=== PATIENT | female | born 1990 ===

== ENCOUNTER 2022-10-05 15:56 | Emergency (ER) | payer OTHER, SELFPAY ==
[2022-10-05 16:00] VITALS: BP 155/103; PULSE 99; RESP 20; TEMP 36.7; O2SAT 97; BMI 34.2
[2022-10-05 16:54] LABS: Influenza A PCR POSITIVE (Negative); Influenza B PCR NEGATIVE (Negative); Resp Syncy Virus RNA Qual PCR NEGATIVE (Negative); SARS COV2 PCR INHOUSE POSITIVE (Negative)
--- NOTE | 2022-10-05 17:53 | ED.URI ---
HPI - URI/Sore Throat General Chief Complaint: Upper Respiratory Symptoms Stated Complaint: flu like symptoms Time Seen by Provider: 10/05/22 17:48 Source: patient Mode of arrival: ambulatory Limitations: no limitations History of Present Illness HPI Narrative: 32-year-old female presenting to the ED with complaints of fevers, chills, fatigue, malaise, intermittent headaches, nasal congestion / rhinorrhea, ear pain, cough that has been present for the past 2 weeks worse today. Denies recent travel. Her significant other at bedside has similar symptoms. Otherwise no other sick contacts that they are aware of. She denies any dizziness, neck pain / stiffness, chest pain or shortness of breath, shortness of breath, palpitations, paresthesias, nausea/vomiting / diarrhea constipation, black or bloody stools, lower extremity edema or calf tenderness, rashes or any other symptoms complaints or concerns at this time. MD elicited complaint: fever, cough, rhinorrhea and nasal congestion Onset (ago): week(s) (2) Consistency: constant and progressively worsening Severity: moderate Description of mucous: clear, watery and yellow Able to tolerate fluids by mouth: Yes Exacerbating factors: nothing Relieving factors: nothing Context: sick contacts Associated symptoms: fever, chills, myalgias, diaphoresis, headache, rhinorrhea, nasal congestion, cough and ear pain Treatments prior to arrival: other ( She has been taking [id number] medication no symptomatic relief) Related Data Previous Rx's Medication Instructions Recorded albuterol sulfate 90 mcg/actuation 1 inh inhalation QID PRN shortness 10/05/22 aerosol inhaler of breath or wheezing #8.5 grams amoxicillin 875 mg-potassium 1 tab PO BID 10 days #20 tabs 10/05/22 clavulanate 125 mg tablet codeine 10 mg-guaifenesin 100 mg/5 5 ml PO Q6H PRN cold symptoms #120 10/05/22 mL oral liquid (Guaifenesin AC) mL Allergies Allergy/AdvReac Type Severity Reaction Status Date / Time No Known Allergies Allergy Unverified 07/01/20 16:21 Review of Systems Review of Systems: Constitutional : + subjective fevers/ chills/fatigue/malaise, No Weight loss, No Night Sweats ENT/Mouth : No Hearing loss, + Ear Pain, + Nasal Congestion, No Sinus Pain, No Hoarseness, No sore throat, + Rhinorrhea, No Swallowing Difficulty Eyes: No Eye Pain, No Swelling, No Redness, No Foreign Body, No Discharge, No Vision Changes Cardiovascular : No Chest Pain, No SOB, No Dyspnea on Exertion, No Orthopnea, No Edema, No Palpitations Respiratory : + Cough, No Sputum, No Wheezing, No Smoke Exposure, No Dyspnea Gastrointestinal : No Nausea, No Vomiting, No Diarrhea, No Constipation, No abdominal Pain, No Hematochezia, No Melena Genitourinary : no irregular bleeding, No Dysuria, No Urinary Frequency, No Hematuria, No Urinary Incontinence, No Urgency, No Flank Pain, No Urinary Flow Changes, No Hesitancy Musculoskeletal : No joint pain, + Myalgias, No Joint Swelling Skin : No Skin Lesions, No rash Neuro : No Weakness, No Numbness, No Paresthesias, No Loss of Consciousness, No Dizziness, No Headache Psych : No Anxiety/Panic, No Depression, No SI/HI/AH/VH, No Social Issues, Heme/Lymph: No Bruising, No Bleeding,No Lymphadenopathy Endocrine : No Polyuria, No Polydipsia, No Temperature Intolerance Yes all other systems are reviewed and are negative [facility] Past Medical History Attestation statement: The following information was validated with the patient. Source: old records reviewed, obtained from family and nursing notes reviewed Social History Social History Advance Directives: No Advance Directives Information Provided: Yes Physical Exam Vital Signs: Vital Signs: Last Vital Signs Temp 98.0 F 10/05/22 16:00 Pulse 99 10/05/22 16:00 Resp 20 10/05/22 16:00 BP 155/103 H 10/05/22 16:00 Pulse Ox 97 10/05/22 16:00 O2 Del Method 10/05/22 16:00 BMI result Body Mass Index 34.2 Vital signs reviewed. Blood pressure normal. Pulse normal. Respiration normal. Oxygen normal. Temperature normal. Appearance: Alert. Oriented X3. No acute distress. Head: Normal external exam. Normocephalic. Atraumatic. Eyes: PERRLA. EOMI. Conjunctiva and sclera normal. Eyelids normal. ENT: EAC normal. TM's Normal. Pharynx normal. Uvula midline. Moist mucous membranes. No lesions/ulcerations or masses noted on the tongue. Normal voice. No trismus noted. No drooling noted. No muffled voice noted. Neck: Normal inspection. Neck supple. FROM. No adenopathy. Thyroid Normal. No meningeal signs. CVS: Normal heart rate and rhythm. Heart sound normal. Pulses normal throughout. No murmurs/rales/gallops. Respiratory: No respiratory distress. Painless inspiration. Breath sounds normal. No wheezes/rales/rhonchi noted. Chest nontender. No accessory muscle usage noted or decreased air movement noted. Abdomen: Soft and nontender. Back: Full range of motion noted. Nontender. Skin: Skin warm and dry. Normal skin color. Normal skin turgor. No rashes/lesions/lacerations noted. Extremities: Extremities exhibit normal range of motion and nontender. Neuro: Oriented X 3. No motor deficit. No sensory deficit. Reflexes normal. Normal steady gait. No focal neuro deficits noted. CN's II-XII intact bilaterally? Vascular: + radial pulses. Normal cap refill. No cyanosis noted to upper extremity nails Course Course Course Narrative: patient with URI symptoms for the past 2 weeks reports this started off has like a sinus infection 2 weeks ago and then over the past week she has developed new symptoms I explained to her that most likely she probably had COVID and now she has the flu and she still testing positive for COVID although she tested positive for both of them at this time. Negative for RSV. Lungs are clear to auscultation. Neck is soft nontender supple no meningeal sign noted. She is noted to have a left tympanic otitis media. Right tympanic membrane within normal limits. Not consistent mastoiditis. Posterior pharynx no exudate is noted uvula midline. Patient tolerating secretions well. No imaging indicated. Will DC home with symptomatic treatment antibiotics for her left ear infection instructions return if any new or worsening symptoms to self isolate per CDC guidelines. Patient understands agrees with this plan. Medical Decision Making Lab Data MDM Lab Attestation statement: I reviewed the patient's lab results. Labs: Lab Results 10/05/22 Range/Units 16:09 Influenza Type A (PCR) POSITIVE A (Negative) Influenza Type B (PCR) NEGATIVE (Negative) RSV RNA Qual (PCR) NEGATIVE (Negative) SARS-CoV-2 RNA (RT-PCR) POSITIVE A (Negative) Discharge Plan Discharge Clinical Impression: COVID-19, Influenza A, Acute left otitis media Patient Disposition: Home, Self-Care Instructions: Influenza (ED), Ear Infection (ED), COVID-19 (Coronavirus Disease 2019) (ED) Prescriptions: New amoxicillin-pot clavulanate 875-125 mg tablet 1 tab PO BID 10 Days Qty: 20 0RF codeine-guaifenesin [Guaifenesin AC] 10-100 mg/5 mL liquid 5 ml PO Q6H PRN (Reason: cold symptoms) Qty: 120 0RF albuterol sulfate 90 mcg/actuation HFA aerosol inhaler 1 inh inhalation QID PRN (Reason: shortness of breath or wheezing) Qty: 8.5 0RF Referrals: ED Physician,Generic [Physician] - 5 days (your pcp) Stand Alone Forms: Work/School Release
[2022-10-05] MEDS: guaiFEN/Codeine SF 200/20/10ML 10 ML LIQUID PO (18:06)
== END 2022-10-05 18:12 | disposition home or self-care (01) ==
LOC: HO.ED 18:00
PROVIDERS: Emergency Provider Emergency Medicine
DX: U07.1 COVID-19 (principal); J11.1 Influenza due to unidentified influenza virus with other respiratory manifestations; H66.92 Otitis media, unspecified, left ear
CPT/HCPCS: 0241U; 99282; 99283

== ENCOUNTER 2022-11-09 12:53 | Outpatient (REF) | payer OTHER, SELFPAY ==
--- NOTE | ~2022-11-09 | XR_ITS ---
EXAMINATION: XR CHEST CLINICAL INFORMATION: Chest pain. Heart palpitations. COMPARISON: None TECHNIQUE: 2 views of the chest were obtained. FINDINGS: Bilateral nipple piercing. The lungs are well expanded. There is no focal consolidation, edema, or effusion. No pneumothorax. The cardiomediastinal silhouette is within normal limits. No acute osseous abnormality. XR/XR chest 2V IMPRESSION: Clear lungs.
== END 2022-11-09 12:54 | disposition home or self-care (01) ==
LOC: HO.XRAY 12:53
PROVIDERS: PCP Family Medicine; Visit Provider Family Medicine
DX: R07.9 Chest pain, unspecified (principal)
CPT/HCPCS: 71046

== ENCOUNTER → 2022-11-29 12:50 | Outpatient (REF) | payer OTHER, SELFPAY ==
--- NOTE | 2022-11-29 12:53 | HM_ITS ---
Conclusion: 1. Patient was monitored for total period of 2 days 2. Baseline was normal sinus rhythm with average heart rate of 78 beats per minute 3. No significant pauses or bradycardia noted 4. Rare PVCs noted with total burden of 0.01% 5. Patient reported to events of chest pain that correlated with sinus rhythm MTDD
== END ==
LOC: HO.CARD 12:50
PROVIDERS: PCP Family Medicine; Visit Provider Family Medicine
DX: R00.2 Palpitations (principal)
CPT/HCPCS: 93242

== ENCOUNTER → 2022-12-12 13:42 | Outpatient (BNVA) | payer OTHER, SELFPAY | PROVIDERS: PCP Family Medicine; Visit Provider Internal Medicine | DX: I49.3 Ventricular premature depolarization (principal); R07.9 Chest pain, unspecified; R00.2 Palpitations | CPT/HCPCS: 99202 ==

== ENCOUNTER 2023-01-25 19:21 | Emergency (ER) | payer OTHER, SELFPAY ==
[2023-01-25 19:52] VITALS: BP 118/78; PULSE 98; RESP 18; TEMP 37; O2SAT 96; BMI 35.0
--- NOTE | 2023-01-25 19:53 | ED.URI ---
HPI - URI/Sore Throat General Chief Complaint: General Medical <Thalia Isabel NP - Last Filed: 01/31/23 11:08> Stated Complaint: Strep throat? <Thalia Isabel NP - Last Filed: 01/31/23 11:08> Time Seen by Provider: 01/25/23 20:10 <Thalia Isabel NP - Last Filed: 01/31/23 11:08> Source: patient <Carlos Gu MD - Last Filed: 01/25/23 20:18> Mode of arrival: ambulatory <Carlos Gu MD - Last Filed: 01/25/23 20:18> Limitations: no limitations <Carlos Gu MD - Last Filed: 01/25/23 20:18> History of Present Illness MD elicited complaint: sore throat <Carlos Gu MD - Last Filed: 01/25/23 20:18> Onset (ago): day(s) (3) <Carlos Gu MD - Last Filed: 01/25/23 20:18> Consistency: constant <Carlos Gu MD - Last Filed: 01/25/23 20:18> Severity: moderate <Carlos Gu MD - Last Filed: 01/25/23 20:18> Able to tolerate fluids by mouth: Yes <Carlos Gu MD - Last Filed: 01/25/23 20:18> Exacerbating factors: swallowing <Carlos Gu MD - Last Filed: 01/25/23 20:18> Relieving factors: nothing <Carlos Gu MD - Last Filed: 01/25/23 20:18> Context: sick contacts <Carlos Gu MD - Last Filed: 01/25/23 20:18> Associated symptoms: sore throat and ear pain <Carlos Gu MD - Last Filed: 01/25/23 20:18> Treatments prior to arrival: none <Carlos Gu MD - Last Filed: 01/25/23 20:18> Related Data Home Medications: Previous Rx's Medication Instructions Recorded albuterol sulfate 90 mcg/actuation 1 inh inhalation QID PRN shortness 10/05/22 aerosol inhaler of breath or wheezing #8.5 grams citalopram 20 mg tablet 20 mg PO DAILY 30 days #30 tabs 01/18/23 amoxicillin 875 mg tablet 875 mg PO Q12H #20 tabs 01/25/23 lisdexamfetamine 10 mg capsule 10 mg PO QAM 30 days #30 caps 01/29/23 (Vyvanse) <Thalia Isabel NP - Last Filed: 01/31/23 11:08> Allergies/Adverse Reactions: Allergies Allergy/AdvReac Type Severity Reaction Status Date / Time No Known Allergies Allergy Verified 01/25/23 19:52 <Thalia Isabel NP - Last Filed: 01/31/23 11:08> [facility] Past Medical History Surgical History: Surgical History History of ear surgery <Thalia Isabel NP - Last Filed: 01/31/23 11:08> Family History Family History: Family History Mother No problems noted. Father Heart disease <Thalia Isabel NP - Last Filed: 01/31/23 11:08> Social History Social History: Social History Housing: House Alcohol intake: never Patient Tobacco Use Status: Former Tobacco user Quit Date: 2020 Smoked: 15 +/- e-Cigarette/Vaping Use: Never Used Substance Use Type: Marijuana Advance Directives: No Advance Directives Information Provided: No service: No Current occupational status: employed Current occupational exposures/hazards: No Cognitive needs: No Hearing needs: No Vision needs: Yes (wears glasses) <Thalia Isabel NP - Last Filed: 01/31/23 11:08> Physical Exam Vital Signs: Vital Signs: Last Vital Signs Temp 98.6 F 01/25/23 19:52 Pulse 98 01/25/23 19:52 Resp 18 01/25/23 19:52 BP 118/78 01/25/23 19:52 Pulse Ox 96 01/25/23 19:52 O2 Del Method Room Air 01/25/23 19:52 BMI result Body Mass Index 35.0 <Thalia Isabel NP - Last Filed: 01/31/23 11:08> Vital Signs: Last Vital Signs Temp 98.6 F 01/25/23 19:52 Pulse 98 01/25/23 19:52 Resp 18 01/25/23 19:52 BP 118/78 01/25/23 19:52 Pulse Ox 96 01/25/23 19:52 O2 Del Method Room Air 01/25/23 19:52 BMI result Body Mass Index 35.0 <Carlos Gu MD - Last Filed: 01/25/23 20:18> GEN: Well developed, no acute distress, alert, oriented HEENT: Normocephalic, atraumatic, normal external ears, nose appears normal, bilateral tonsilar enlargement and eyrthema, TM clear Eyes: Normal to appearance Neck: Supple, no lymphadenopathy Respiratory: Talks in complete sentences, no respiratory distress Extremities: No clubbing cyanosis or edema Neurologic: No focal neurologic deficits, cranial nerves 2-12 intact, gait normal Skin: No rash <Carlos Gu MD - Last Filed: 01/25/23 20:18> Course Course Course Narrative: This is a rapid medical exam. Deferred additional HPI, ROS, PE to primary provider. 32 yo female asthma, ADHD, anxiety/depression here with sore throat x1 day, left ear pain. Son had strep last week. Patient would like to be tested for strep. She declined COVID testing. Will send rapid strep <Thalia Isabel NP - Last Filed: 01/31/23 11:08> Reevaluation(s) Reevaluation #1: Patient will be treated for acute strep pharyngitis. Given close sick contacts with strep pharyngitis, I believe it is appropriate to go ahead and treat at this time. There are no additional symptoms and based on cancer criteria I think it is appropriate to start amoxicillin. <Carlos Gu MD - Last Filed: 01/25/23 20:18> Time: 20:17 <Carlos Gu MD - Last Filed: 01/25/23 20:18> Medical Decision Making Medical Decision Making MDM Narrative: 32-year-old female presents with sore throat. Examination revealed bilateral tonsillar enlargement with erythema, no exudates. Tympanic membranes are clear although she did describe a left ear pain which I suspect is due to eustachian tube dysfunction. There is no evidence of peritonsillar abscess or retropharyngeal abscess. Will treat with amoxicillin given close sick contacts. <Carlos Gu MD - Last Filed: 01/25/23 20:18> Differential Diagnosis Differential Diagnoses: The differential diagnosis associated with the presentation includes (Acute pharyngitis, strep throat, viral pharyngitis, viral illness) <Carlos Gu MD - Last Filed: 01/25/23 20:18> Lab Data Labs: Lab Results 01/25/23 Range/Units 20:02 S. pyogenes GrpA ALYCIA Negative (Negative) <Thalia Isabel NP - Last Filed: 01/31/23 11:08> Lab Results 01/25/23 Range/Units 20:02 S. pyogenes GrpA ALYCIA Negative (Negative) <Carlos Gu MD - Last Filed: 01/25/23 20:18> Prescription Management I considered prescription management with: Pain Medication and Antibiotic <Carlos Gu MD - Last Filed: 01/25/23 20:18> Discharge Plan Discharge Clinical Impression: Acute pharyngitis <Thalia Isabel NP - Last Filed: 01/31/23 11:08> Patient Disposition: Home, Self-Care <Thalia Isabel NP - Last Filed: 01/31/23 11:08> Instructions: Pharyngitis (ED) <Thalia Isabel NP - Last Filed: 01/31/23 11:08> Prescriptions: New amoxicillin 875 mg tablet 875 mg PO Q12H Qty: 20 0RF No Action Vyvanse 10 mg capsule 10 mg PO QAM 30 Days Qty: 30 0RF Rx Instructions: [facility] verified. Partial refill upon request. albuterol sulfate 90 mcg/actuation HFA aerosol inhaler 1 inh inhalation QID PRN (Reason: shortness of breath or wheezing) Qty: 8.5 0RF citalopram 20 mg tablet 20 mg PO DAILY 30 Days Qty: 30 3RF <Thalia Isabel NP - Last Filed: 01/31/23 11:08> Referrals: Cyril Farooq MD [Primary Care Provider] - 1 week <Thalia Isabel NP - Last Filed: 01/31/23 11:08> Interventions: ED Discharge Assessment Last Done: 01/25/23 20:26 <Thalia Isabel NP - Last Filed: 01/31/23 11:08> Discharge Date/Time: 01/25/23 20:27 <Thalia Isabel NP - Last Filed: 01/31/23 11:08>
[2023-01-25 20:14] LABS: IDNOW Serial# 08D9AD1C; Strep A Nucleic Acid Negative (Negative)
== END 2023-01-25 20:27 | disposition home or self-care (01) ==
LOC: HO.ED 20:22
PROVIDERS: Nurse Practitioner Family; Emergency Provider Emergency Medicine; PCP Family Medicine
DX: J02.9 Acute pharyngitis, unspecified (principal); Z87.891 Personal history of nicotine dependence
CPT/HCPCS: 87651; 99282; 99283

== ENCOUNTER 2023-03-30 06:07 | Outpatient (REF) | payer OTHER, SELFPAY ==
[2023-03-30 11:17] LABS: MANUAL DIFF FLAG NO
[2023-03-30 11:28] LABS: Basophils Absolute Auto 0.1 X10*3/uL (0.0-0.2); Basophils Percent Auto 0.8 % (0-2); Eosinophils Absolute Auto 0.1 X10*3/uL (0.0-0.4); Eosinophils Percent Auto 1.4 % (0-4); Hemoglobin 14.6 g/dl (12.0-16.0); Imm Gran Abs Auto 0.02 X10*3/uL (0.00-0.03); Imm Gran Pct Auto 0.3 % (0.0-0.4); Lymphocytes Absolute Auto 1.7 X10*3/uL (1.2-4.9); Lymphocytes Percent Auto 26.3 % (20-40); Mean Corpuscular Hemoglobin 29.7 pg (27.0-33.0); Mean Corpuscular Volume 87.4 fL (80.0-98.0); Monocytes Absolute Auto 0.4 X10*3/uL (0.1-1.2); Monocytes Percent Auto 6.6 % (2-11); Neutrophils Absolute Auto 4.1 x10*3/uL (2.0-8.3); Neutrophils Percent Auto 64.6 % (45-73); Platelet Count 309 X10*3/uL (160-400); Red Blood Count 4.92 X10*6/uL (4.20-5.50); Red Cell Distribution Width 12.3 % (11.0-16.0); White Blood Count 6.4 X10*3/uL (4.8-10.8)
[2023-03-30 12:08] LABS: Alanine Aminotransferase 48 U/L (0-31); Albumin Level 4.3 g/dL (3.5-5.0); Alkaline Phosphatase 83 U/L (39-117); Anion Gap 16 (12-20); Aspartate Amino Transferase 25 U/L (5-31); Bilirubin Total 0.9 mg/dL (0.0-1.0); Blood Urea Nitrogen 8 mg/dL (9-16); Calcium 9.9 mg/dL (8.4-10.2); Carbon Dioxide 25 mmol/L (22-29); Chloride 102 mmol/L (96-108); Cholesterol 158 mg/dL; Estimated Glomerular Filt Rate > 60; Glucose Fasting 69 mg/dL (60-99); HDL Cholesterol 41 mg/dL; LDL Cholesterol Calculated 104 mg/dl; Potassium 3.5 mmol/L (3.3-5.1); Sodium 139 mmol/L (135-145); TSH reflex Free T4 1.43 uIU/mL (0.32-4.0); Total Protein 7.5 g/dL (6.5-8.0); Triglycerides 68 mg/dL
== END 2023-03-30 06:08 | disposition home or self-care (01) ==
LOC: HO.HMGCLDS 06:07
PROVIDERS: PCP Family Medicine; Visit Provider Family Medicine
DX: Z00.00 Encounter for general adult medical examination without abnormal findings (principal)
CPT/HCPCS: 36415; 80053; 80061; 84443; 85025

== ENCOUNTER 2023-07-11 15:58 | Outpatient (AMB) | payer OTHER, SELFPAY ==
--- NOTE | 2023-07-11 16:02 | A.OFFPC_ITS ---
Vital Signs 07/11/23 16:06 Height 5 ft 6 in Weight 212 lb 6 oz BMI 34.3 BP 124/60 Blood Pressure Location Rt brachial Position Sitting Respiration 13 Pulse 86 Pulse Source Pulse Oximeter Temp 98.9 F Temp Source Oral Pulse Oximetry (%) 99 Oxygen Delivery Method Room Air Intake Visit Reasons: CPE Intake Note: Patient is here for her physical and she reports she needs medication refills. Special Education Aide Required: No Accompanied by: Self / Same As Patient Allergies No Known Allergies Allergy (Verified 07/11/23 16:10) Tobacco use date assessed: 11/09/22 HPI CPE HPI Details 32 y/o female presents for an extended e xam with f/u labs and health ma intenance. No recent labs to review. Also f/u anxiety and ADHD. Most recent labs were drawn 03/30/23. Reviewed labs with pt. Triglycerides 68. TC 158. LDL 104. HDL 41. Elevated ALT of 48. HPI Comments History of Present Illness Details Documentation assistance for Cyril Farooq MD, was provided by Newton Frazier, Interpretative Dancer on 07/11/2023 4:18 PM CARLA. I, Dr. Farooq, have read, observed, and verified documentation. PFSH Surgical History History of ear surgery Family History Mother No problems noted. Father Heart disease Social History Housing: House Alcohol intake: never Patient Tobacco Use Status: Former Tobacco user Quit Date: 2020 Years Smoked: 15 +/- e-Cigarette/Vaping Use: Never Used Substance Use Type: Marijuana service: No Current occupational status: employed Current occupational exposures/hazards: No Cognitive needs: No Hearing needs: No Vision needs: Yes (wears glasses) Questionnaire Thrive Questionnaire Date Thrive assessed: 11/09/22 Review of Systems Const Denies chills, Denies fatigue, Denies fever(s), Denies headache(s) and Denies weakness Eyes Denies change in vision ENT Denies dizziness, Denies headache(s), Denies hearing loss, Denies nasal congestion, Denies sinus pain, Denies sinus pressure and Denies sore throat Card Denies chest pain, Denies lightheadedness, Denies dyspnea and Denies other (palpitations) Resp Denies cough, Denies dyspnea and Denies wheezing GI Denies abdominal pain, Denies melena, Denies hematochezia, Denies change in bowel habits, Denies dyspepsia and Denies nausea Denies hematuria and Denies dysuria Musc Denies abnormal gait, Denies myalgias, Denies arthralgias, Denies numbness and Denies tingling Skin/Breast Denies rash, Denies unusual bruising and Denies wounds Neuro Denies abnormal gait, Denies dizziness, Denies headache(s), Denies memory loss, Denies numbness, Denies Sensory deficit (Neuro), Denies tingling and Denies weakness Psych Denies anxiety, Denies depression and Denies memory loss Endo Denies cold intolerance, Denies fatigue, Denies heat intolerance, Denies polydi psia and Denies polyuria Armando/Lymph Denies easy bleeding and Denies easy bruising Aller/Immun Denies wheezing Physical exam (Primary Care) Vital Signs: Last Vital Signs Temp 98.9 F 07/11/23 16:06 Pulse 86 07/11/23 16:06 Resp 13 07/11/23 16:06 BP 124/60 07/11/23 16:06 Pulse Ox 99 07/11/23 16:06 Oxygen Delivery Method Room Air 07/11/23 16:06 BMI result Body Mass Index 34.3 Tobacco/Smoking Status: Tobacco use Status Tobacco use date assessed 11/09/22 07/11/23 16:03 Patient Tobacco Use Status Former Tobacco user 07/11/23 16:03 e-Cigarette/Vaping Use Never Used 07/11/23 16:03 Thrive Assessment: Date of Thrive Assessment Date Thrive assessed 11/09/22 07/11/23 16:03 Const General: no acute distress, well developed, alert and awake Nutritional Appearance: well nourished Orientation/consciousness: patient oriented x3 HENMT Head: Yes normocephalic and Yes atraumatic Ears: hearing grossly normal bilaterally and TM's normal bilaterally General nose exam: Normal external nose present and Normal nares present Mouth: Normal oral and palatal mucosa present and moist mucous membranes Teeth and gingiva: dentition normal Throat: Yes posterior oropharynx normal Eyes General: appearance normal, both eyes and all related structures Pupils: Equal, round and reactive pupils present and Pupil accommodation reflex normal EOM: EOMs intact bilaterally Neck Neck: Yes normal visual inspection, Yes no lymphadenopathy and Yes trachea midline Thyroid: Thyroid normal Carotids: no bruits Lymphatic: no lymphadenopathy noted Chest Chest palpation & inspection: normal inspection of the chest Resp Effort & Inspection: normal respiratory effort Auscultation: clear to auscultation bilaterally Cardio Rate: regular rate Rhythm: regular rhythm Heart sounds: S1 normal heart sound present, S2 normal heart sound present, no gallops, no murmurs and no rubs Bruits: no abdominal aortic bruits and no carotid bruits GI Palpation (GI): No Abdominal aortic bruit present, Soft to palpation, nontender, No hepatosplenomegaly present and No Rebound tenderness present Auscultation: normal bowel sounds General: Yes no CVA tenderness Back/Spine/Pelvis Back: no CVA tenderness Cervical Spine: cervical ROM normal and No Cervical spine tenderness Thoracic/Lumbar Spine: thoraco-lumbar ROM normal, No pain with thoraco-lumbar ROM, No thoracic spinal tenderness and No lumbar spinal tenderness Skin Lesions: no lesions Rashes: no rashes Trauma: no lacerations or abrasions Wounds: no wounds Nails: normal Neuro General: patient oriented x3 Cranial nerves: Yes Equal, round and reactive pupils present Cognition (Neuro): normal cognition Gait exam (Neuro): Normal gait present Motor exam (neuro): 5/5 motor strength present throughout Sensory Exam: No Sensory deficit (Neuro) Deep tendon reflexes (DTR's): Right patellar reflex intensity grade: 2+ and Left patellar reflex intensity grade: 2+ Extrem General: Yes normal to inspection and No edema Psych Appearance: grossly normal Affect: normal affect Attitude: cooperative Thought process: Normal thought process present Assessment and Plan Assessment & Plan (1) Elevated ALT measurement: Code(s): R74.01 - Elevation of levels of liver transaminase levels Plan: Repeat?labs Will?follow-up?with?patient?by?telemedicine?in?a?couple?of?weeks (2) ADHD: Code(s): F90.9 - Attention-deficit hyperactivity disorder, unspecified type Plan: Medication?is?efficacious?and?not?causing?any?adverse?effects?such?as?sleep?prob lems,?worsened?anxiety?or?appetite?problems. Continue?current?medication (3) Depression with anxiety: Code(s): F41.8 - Other specified anxiety disorders Plan: Still?has?anxiety.??Has?been?using?b upropion,?citalopram?and?have?given?her?a?small?script?for?lorazepam Continue?current?medications We?discussed?that?if?she?is?needing?more?frequent?medication?for?anxiety,?we?nessa uld?consider?increasi ng?citalopram?or?bupropion?before?trying?additional?lorazepam. (4) Screening for cervical cancer: Code(s): Z12.4 - Encounter for screening for malignant neoplasm of cervix Plan: Will?follow-up?on?health?maintenance?at?her?next?encounter (5) Adult general medical exam: Code(s): Z00.00 - Encounter for general adult medical examination without abnormal findings Plan: 32-year-old?female?presents?for?an?extended?exam Encouraged?healthy?diet?with?active?lifestyle?and?plenty?of?exercise Orders: Orders Lipid Panel Today Z00.00 - Encounter for general adult medical examination without abnormal findings Complete Blood Count Auto Diff Today Z00.00 - Encounter for general adult medical examination without abnormal findings Comprehensive [place]. Panel Fast Today Z00.00 - Encounter for general adult medical examination without abnormal findings TSH reflex Free T4 Today Z00.00 - Encounter for general adult medical examination without abnormal findings UA and rflx microscopic Today Z00.00 - Encounter for general adult medical examination without abnormal findings Microalbumin, Random (w Creat) Today I10 - Essential (primary) hypertension Medications: Refilled lisdexamfetamine [facility] verified. Partial refill upon request. 20 mg PO QAM 30 caps 0RF 30 days F90.9 - Attention-deficit hyperactivity disorder, unspecified type lorazepam [facility] verified. Partial refill upon request. 0.5 mg PO DAILY PRN 10 tabs 0RF anxiety 30 days F41.9 - Anxiety disorder, unspecified Coding Level of Care Code Est Pt Level 4 (82143) Diagnoses Elevated ALT measurement R74.01 ADHD F90.9 Depression with anxiety F41.8 Screening for cervical cancer Z12.4 Adult general medical exam Z00.00
[2023-07-11 16:06] VITALS: BP 124/60; PULSE 86; RESP 13; TEMP 37.2; O2SAT 99; BMI 34.3
== END 2023-07-11 16:36 | disposition home or self-care (01) ==
PROVIDERS: PCP Family Medicine; Visit Provider Family Medicine
DX: R74.01 Elevation of levels of liver transaminase levels (principal); F90.9 Attention-deficit hyperactivity disorder, unspecified type; F41.8 Other specified anxiety disorders; Z12.4 Encounter for screening for malignant neoplasm of cervix; Z00.00 Encounter for general adult medical examination without abnormal findings
CPT/HCPCS: 99214

== ENCOUNTER 2023-07-18 06:14 | Outpatient (REF) | payer OTHER, SELFPAY ==
[2023-07-18 11:21] LABS: MANUAL DIFF FLAG NO
[2023-07-18 11:25] LABS: Appearance Urine Cloudy; Color Urine Yellow; Glucose Urine UA Negative (Negative); Leukocyte Esterase Urine Moderate (2+) (Negative); Nitrite Urine Negative (Negative); PH 5.5 (5.0-9.0); UMIC TRIGGER UA YES; Urine Blood Negative (Negative); Urine Ketones Negative (Negative); Urine Protein Negative (Neg-Trace)
[2023-07-18 11:30] LABS: Bacteria Urine 2+ (None Seen); Hyaline Casts Urine 0-2 /LPF (0-2); RBC Urine 0-2 /HPF (0-2); WBC Urine 21-50 /HPF (0-5)
[2023-07-18 11:35] LABS: Basophils Absolute Auto 0.1 X10*3/uL (0.0-0.2); Basophils Percent Auto 0.9 % (0-2); Eosinophils Absolute Auto 0.1 X10*3/uL (0.0-0.4); Eosinophils Percent Auto 1.7 % (0-4); Hematocrit 42.5 % (37.0-47.0); Hemoglobin 13.8 g/dl (12.0-16.0); Imm Gran Abs Auto 0.01 X10*3/uL (0.00-0.03); Imm Gran Pct Auto 0.2 % (0.0-0.4); Lymphocytes Absolute Auto 2.2 X10*3/uL (1.2-4.9); Lymphocytes Percent Auto 33.8 % (20-40); Mean Corpuscular HGB Conc 32.5 g/dl (31.0-35.0); Mean Corpuscular Hemoglobin 29.8 pg (27.0-33.0); Mean Corpuscular Volume 91.8 fL (80.0-98.0); Mean Platelet Volume 9.1 fL (9.4-12.3); Monocytes Absolute Auto 0.5 X10*3/uL (0.1-1.2); Monocytes Percent Auto 7.3 % (2-11); Neutrophils Absolute Auto 3.6 x10*3/uL (2.0-8.3); Neutrophils Percent Auto 56.1 % (45-73); Platelet Count 317 X10*3/uL (160-400); Red Blood Count 4.63 X10*6/uL (4.20-5.50); Red Cell Distribution Width 12.3 % (11.0-16.0); White Blood Count 6.4 X10*3/uL (4.8-10.8)
[2023-07-18 12:08] LABS: Alanine Aminotransferase 53 U/L (0-31); Alkaline Phosphatase 88 U/L (39-117); Anion Gap 11 (12-20); Aspartate Amino Transferase 48 U/L (5-31); Bilirubin Total 0.4 mg/dL (0.0-1.0); Blood Urea Nitrogen 10 mg/dL (9-16); Calcium 8.8 mg/dL (8.4-10.2); Carbon Dioxide 27 mmol/L (22-29); Chloride 104 mmol/L (96-108); Cholesterol 153 mg/dL (<200); Estimated Glomerular Filt Rate > 60; Glucose Fasting 89 mg/dL (60-99); HDL Cholesterol 57 mg/dL (>40); LDL Cholesterol Calculated 85 mg/dL (<100); Potassium 4.5 mmol/L (3.3-5.1); Sodium 137 mmol/L (135-145); Total Protein 6.8 g/dL (6.5-8.0); Triglycerides 55 mg/dL (<150)
[2023-07-18 12:11] LABS: TSH reflex Free T4 1.22 uIU/mL (0.32-4.0)
[2023-07-18 12:22] LABS: Creatinine Urine 157.44 mg/dL; Microalbum/Creatinine Ratio Ur 7.6 ug/mg cr (<30)
== END 2023-07-18 06:15 | disposition home or self-care (01) ==
LOC: HO.CHCLDS 06:14
PROVIDERS: Visit Provider Family Medicine
DX: Z00.00 Encounter for general adult medical examination without abnormal findings (principal); I10 Essential (primary) hypertension
CPT/HCPCS: 36415; 80053; 80061; 81001; 82043; 82570; 84443; 85025

== ENCOUNTER 2023-09-04 14:23 | Outpatient (AMB) | payer OTHER, SELFPAY ==
--- NOTE | 2023-09-04 14:20 | MHC.PC.OV ---
Intake Visit Reasons: f/u CPE-labs Intake Note: Patient states she is ready for her telehealth call and the provider is able to call if he has time prior to her appointment time. 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 Labs were drawn 07/18/23. Reviewed labs with pt. Elevated liver enzymes - AST 48 and ALT 53. Triglycerides 55. TC 153. LDL 85. HDL 57. Bacteria seen in urine. [facility] Surgical History History of ear surgery Family History Mother No problems noted. Father Heart disease Housing: House Alcohol intake: never Patient Tobacco Use Status: Former Tobacco user Quit Date: 2020 Years Smoked: 15 +/- e-Cigarette/Vaping Use: Never Used Substance Use Type: Marijuana service: No Current occupational status: employed Current occupational exposures/hazards: No Cognitive needs: No Hearing needs: No Vision needs: Yes (wears glasses) Questionnaire Thrive Questionnaire Date Thrive assessed: 11/09/22 Review of Systems Const Denies chills, Denies fatigue, Denies fever(s), Denies headache(s) and Denies weakness ENT Denies dizziness and Denies headache(s) Card Denies dyspnea Resp Denies cough, Denies dyspnea, Denies wheezing and Denies other (shortness of breath) Musc Denies numbness and Denies tingling Neuro Denies dizziness, Denies headache(s), Denies numbness, Denies tingling and Denies weakness Psych Denies anxiety and Denies depression Endo Denies fatigue Aller/Immun Denies wheezing Physical exam (Primary Care) Tobacco/Smoking Status: Tobacco use Status Tobacco use date assessed 11/09/22 09/04/23 14:22 Patient Tobacco Use Status Former Tobacco user 09/04/23 14:22 e-Cigarette/Vaping Use Never Used 09/04/23 14:22 Thrive Assessment: Date of Thrive Assessment Date Thrive assessed 11/09/22 09/04/23 14:22 Telehealth Telehealth Location of provider rendering services: practice address Location of patient: address on file Patient Identification confirmed using: Name, : Yes Telehealth method: voice only Patient verbally consented to treatment: Yes Patient verbally consented to billing insurance company: Yes Patient informed of any privacy concerns related to visit: Yes Minutes spent on Phone/Video with Pt.: 7 Assessment and Plan Assessment & Plan (1) Elevated liver enzymes: Code(s): R74.8 - Abnormal levels of other serum enzymes Plan: Check?liver?ultrasound Encouraged?weight?loss (2) UTI (urinary tract infection): Code(s): N39.0 - Urinary tract infection, site not specified Plan: Urinalysis?suggestive?of?UTI?and?patient?has?symptoms?of?dysuria?and?frequency Sent?a?script?for?Bactrim?DS Orders: Orders US abdomen lomas w elastography Today R74.8 - Abnormal levels of other serum enzymes Medications: New sulfamethoxazole-trimethoprim 800-160 mg (Bactrim DS) 1 tab PO Q12H 10 tabs 0RF 5 days Coding Level of Care Code Tele Est Pt Level 2 (63166) Diagnoses Elevated liver enzymes R74.8 UTI (urinary tract infection) N39.0
== END 2023-09-04 15:00 ==
PROVIDERS: PCP Family Medicine; Visit Provider Family Medicine
DX: R74.8 Abnormal levels of other serum enzymes (principal); N39.0 Urinary tract infection, site not specified
CPT/HCPCS: 99212

== ENCOUNTER 2023-10-11 09:51 | Outpatient (REF) | payer OTHER, SELFPAY | END 2023-10-11 09:52 | disposition home or self-care (01) | LOC: HO.US 09:51 | PROVIDERS: PCP Family Medicine; Visit Provider Family Medicine | DX: R74.8 Abnormal levels of other serum enzymes (principal) | CPT/HCPCS: 76705; 76981 ==

== ENCOUNTER 2023-10-23 08:22 | Outpatient (AMB) | payer OTHER, SELFPAY ==
--- NOTE | 2023-10-23 08:27 | MHC.PC.OV ---
Vital Signs 10/23/23 08:32 Height 5 ft 6 in Weight 219 lb BMI 35.3 BP 112/58 L Blood Pressure Location Rt brachial Position Sitting Respiration 13 Pulse 78 Pulse Source Pulse Oximeter Pulse Oximetry (%) 98 Oxygen Delivery Method Room Air Intake Visit Reasons: f/u elevated liver enzymes and ADHD Intake Note: Patient is here to follow up on her liver enzymes and ultrasound as well as an ADHD check. Patient reports she has no concerns at this time. 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 Liver ultrasound 10/11/23 showed a 1.4cm hypoechoic R hepatic lobe mass, characteristic for a benign hemangioma. Measurements suggestive of compensated advanced chronic liver disease but need further test for confirmation. Also showed cholelithiasis and gallbladder wall thickening suggestive of chronic cholecystitis. She denies EtOH use or tylenol use. She continues to use lixdexamfetamine for her ADHD. She denies any problems with this. She is also on bupropion 75mg b.i.d. and citaopram 20mg. She denies decreased appetite. She does note she feels like her anxiety medications have not been working as well for her due to increased stressors. She reports panic attacks 2-3x a week and does note she works a high stress job along with family stress. She does not have a therapist. Pt notes she does not feel like she has time for one. HPI Comments History of Present Illness Details Documentation assistance for Cyril Farooq MD, was provided by Newton Frazier,? Assistant Research Scientist on 10/23/2023 9:05 AM CARLA. Ag, Dr. Farooq, have read, observed, and verified documentation.? [facility] Surgical History History of ear surgery Family History Mother No problems noted. Father Heart disease Social History Housing: House Alcohol intake: never Patient Tobacco Use Status: Former Tobacco user Quit Date: 2020 Smoked: 15 +/- e-Cigarette/Vaping Use: Never Used Substance Use Type: Marijuana service: No Current occupational status: employed Current occupational exposures/hazards: No Cognitive needs: No Hearing needs: No Vision needs: Yes (wears glasses) Questionnaire Thrive Questionnaire Date Thrive assessed: 11/09/22 Review of Systems Const Denies chills, Denies fatigue, Denies fever(s), Denies headache(s) and Denies weakness ENT Denies dizziness and Denies headache(s) Card Denies dyspnea Resp Denies cough, Denies dyspnea, Denies wheezing and Denies other (shortness of breath) Musc Denies numbness and Denies tingling Neuro Denies dizziness, Denies headache(s), Denies numbness, Denies tingling and Denies weakness Psych Reports anxiety and Denies depression Endo Denies fatigue Aller/Immun Denies wheezing Physical exam (Primary Care) Vital Signs: Last Vital Signs Pulse 78 10/23/23 08:32 Resp 13 10/23/23 08:32 BP 112/58 L 10/23/23 08:32 Pulse Ox 98 10/23/23 08:32 Oxygen Delivery Method Room Air 10/23/23 08:32 BMI result Body Mass Index 35.3 Tobacco/Smoking Status: Tobacco use Status Tobacco use date assessed 11/09/22 10/23/23 08:27 Patient Tobacco Use Status Former Tobacco user 10/23/23 08:27 e-Cigarette/Vaping Use Never Used 10/23/23 08:27 Thrive Assessment: Date of Thrive Assessment Date Thrive assessed 11/09/22 10/23/23 08:27 Const General: well developed; No acute distress Nutritional Appearance: obese Orientation/consciousness: patient oriented x3 HENMT Head: Yes normocephalic and Yes atraumatic Eyes General: appearance normal, both eyes and all related structures Pupils: Equal, round and reactive pupils present EOM: EOMs intact bilaterally Resp Effort & Inspection: normal respiratory effort Neuro General: patient oriented x3 and gait normal Cranial nerves: Yes Equal, round and reactive pupils present Psych Affect: normal affect Assessment and Plan Assessment & Plan (1) Elevated liver enzymes: Code(s): R74.8 - Abnormal levels of other serum enzymes Plan: Ongoing?elevated?liver?enzymes Ultrasound?shows?hepatic?lesion?which?is?likely?a?hemangioma. Will?repeat?ultrasound?in?a?few?months Recheck?liver?enzymes Encouraged?weight?loss (2) ADHD: Code(s): F90.9 - Attention-deficit hyperactivity disorder, unspecified type Plan: Vyvanse?is?efficacious?and?not?causing?any?adverse?effects Patient?notes?increased?anxiety?but?not?due?to?medication-see?below (3) Liver lesion: Code(s): K76.9 - Liver disease, unspecified Plan: As?above,?repeat?ultrasound?in?a?few?months (4) Depression with anxiety: Code(s): F41.8 - Other specified anxiety disorders Plan: Increased?anxiety?and?stressors. Significant?stressor: ?Son?has?ADHD?and?is?having?difficulties?at?school.??New?diagnosis?and?they?are?still?working?out?medications?and?plan?for?him. Will?increase?her?citalopram?and?lorazepam.??Continue?bupropion Advised?therapist.??Patient?feels?she?could?only?engaged?with?a?therapist?if?it?is?on?line?as?she?does?not?have?extra?time?to?go?see?a?therapist.??Will?ask?the?nurse?navigator?to?look?into?this?for?her. Orders: Orders US abdomen limited 02/18/24 K76.9 - Liver disease, unspecified Comprehensive [place]. Panel Fast Today R74.8 - Abnormal levels of other serum enzymes, Z00.00 - Encounter for general adult medical examination without abnormal findings Medications: Changed From citalopram 20 mg PO DAILY 30 days 30 tabs 3RF To citalopram 40 mg (2 x 20 mg) PO DAILY 30 days 60 tabs 3RF From lorazepam [facility]Pat verified. Partial refill upon request. 0.5 mg PO DAILY 30 days PRN 10 tabs 0RF anxiety F41.9 - Anxiety disorder, unspecified To lorazepam 1 - 2 tabs daily orally daily PRN; [facility]Pat verified. Partial refill upon request. 30 days 10 tabs 0RF anxiety F41.9 - Anxiety disorder, unspecified Coding Level of Care Code Est Pt Level 4 (67605) Diagnoses Elevated liver enzymes R74.8 ADHD F90.9 Liver lesion K76.9 Depression with anxiety F41.8
[2023-10-23 08:32] VITALS: BP 112/58; PULSE 78; RESP 13; O2SAT 98; BMI 35.3
== END 2023-10-23 09:13 | disposition home or self-care (01) ==
PROVIDERS: PCP Family Medicine; Visit Provider Family Medicine
DX: R74.8 Abnormal levels of other serum enzymes (principal); F90.9 Attention-deficit hyperactivity disorder, unspecified type; K76.9 Liver disease, unspecified; F41.8 Other specified anxiety disorders
CPT/HCPCS: 99214

== ENCOUNTER 2024-02-13 07:48 | Outpatient (REF) | payer OTHER, SELFPAY ==
--- NOTE | ~2024-02-13 | US_ITS ---
EXAMINATION: US ABDOMEN LIMITED CLINICAL INFORMATION: Liver disease, unspecified. COMPARISON: Ultrasound abdomen limited 10/11/2023. TECHNIQUE: Real-time imaging of the right upper quadrant abdominal viscera. FINDINGS: PANCREAS: Obscured by bowel gas. LIVER: The liver is normal in size. The liver contour is normal. Parenchymal echogenicity is normal. Stable 1.4 cm hyperechoic, well-circumscribed mass in the right hepatic lobe. There is no intrahepatic biliary duct dilatation seen. GALLBLADDER: 1.5 cm mobile gallstone without evidence of cholecystitis. COMMON BILE DUCT: Normal in caliber measuring 0.2 cm in diameter. RIGHT KIDNEY: Normal. No hydronephrosis. No renal calculi or focal parenchymal lesions. The kidney measures 7.7 cm in maximum dimension. FREE FLUID: None. US/US abdomen limited IMPRESSION: Stable 1.4 cm well-circumscribed echogenic lesion in the right hepatic lobe. Given the history of liver disease, continued follow-up is recommended as the ultrasound appearance is nonspecific but most likely hemangioma. Alternatively this could be further characterized with MRI abdomen without and with contrast. Cholelithiasis without evidence of acute cholecystitis.
== END 2024-02-13 07:49 | disposition home or self-care (01) ==
LOC: HO.US 07:48
PROVIDERS: PCP Family Medicine; Visit Provider Family Medicine
DX: K76.9 Liver disease, unspecified (principal)
CPT/HCPCS: 76705

== ENCOUNTER 2024-02-19 09:36 | Outpatient (AMB) | payer OTHER, SELFPAY ==
--- NOTE | 2024-02-19 09:43 | A.OFFPC_ITS ---
Vital Signs 02/19/24 09:45 Height 5 ft 6 in Weight 199 lb 8 oz BMI 32.2 BP 122/80 Blood Pressure Location Lt brachial Position Sitting Pulse 76 Pulse Source Pulse Oximeter Pulse Oximetry (%) 99 Oxygen Delivery Method Room Air Intake Visit Reasons: f/u elevated liver enzymes Intake Note: Patient is here for follow up on ultrasound on abdomen. Patient is requesting refill on her inhaler today. Allergies No Known Allergies Allergy (Verified 02/19/24 09:50) Tobacco use date assessed: 02/19/24 Dental Screening Dental Screen Date: 02/19/24 Did you have a dental visit in the last 12 months?: No Did you have a dental problem in the last 6 months where you did not have access to dental care?: No Was dental information given to patient?: Patient has dentist HPI f/u elevated liver enzymes HPI Details 33 y/o female presents to f/u elevated l iver enzymes. Also f/u on anxiety/ADHD. No recent labs to review for liver enzymes. Ultrasound had looked fine. Radiology had recommended continued surveillance of a possible hemangioma. Had increased her lorazepam but states she has not received the increase. Also on citalopram 40mg She notes she feels like vyvanse is not lasting as long as it used to. She denies any issues with sleep, increased anxiety. She notes she does feel nauseous, early satiety. Pt reprots some GERD. PFSH Surgical History History of ear surgery Family History Mother No problems noted. Father Heart disease Social History Housing: House Alcohol intake: never Patient Tobacco Use Status: Former Tobacco user Quit Date: 2020 Years Smoked: 15 +/- e-Cigarette/Vaping Use: Never Used Substance Use Type: Marijuana service: No Current occupational status: employed Current occupational exposures/hazards: No Cognitive needs: No Hearing needs: No Vision needs: Yes (wears glasses) Questionnaire Thrive Questionnaire Date Thrive assessed: 11/09/22 Review of Systems Const Denies chills, Denies fatigue, Denies fever(s), Denies headache(s) and Denies weakness ENT Denies dizziness and Denies headache(s) Card Denies dyspnea Resp Denies cough, Denies dyspnea, Denies wheezing and Denies other (shortness of breath) Musc Denies numbness and Denies tingling Neuro Denies dizziness, Denies headache(s), Denies numbness, Denies tingling and Denies weakness Psych Denies anxiety and Denies depression Endo Denies fatigue Aller/Immun Denies wheezing Physical exam (Primary Care) Vital Signs: Last Vital Signs Pulse 76 02/19/24 09:45 BP 122/80 02/19/24 09:45 Pulse Ox 99 02/19/24 09:45 Oxygen Delivery Method Room Air 02/19/24 09:45 BMI result Body Mass Index 32.2 Tobacco/Smoking Status: Tobacco use Status Tobacco use date assessed 02/19/24 02/19/24 09:56 Patient Tobacco Use Status Former Tobacco user 02/19/24 09:47 e-Cigarette/Vaping Use Never Used 02/19/24 09:47 Thrive Assessment: Date of Thrive Assessment Date Thrive assessed 11/09/22 02/19/24 09:47 Const General: well developed; No acute distress Nutritional Appearance: well nourished Orientation/consciousness: patient oriented x3 HENMT Head: Yes normocephalic and Yes atraumatic Eyes General: appearance normal, both eyes and all related structures Pupils: Equal, round and reactive pupils present EOM: EOMs intact bilaterally Resp Effort & Inspection: normal respiratory effort Neuro General: patient oriented x3 and gait normal Cranial nerves: Yes Equal, round and reactive pupils present Psych Affect: normal affect Assessment and Plan Assessment & Plan (1) Elevated liver enzymes: Code(s): R74.8 - Abnormal levels of other serum enzymes Plan: Ongoing?elevated?liver?enzymes. Ultrasound?showed?what?is?likely?a?hemangioma?and?repeat?imaging?shows?stability ?but?radiology?recommended?continued?surveillance. Will?repeat?in?6?months. Continue?good?hydration?and?weight?loss (2) ADHD: Code(s): F90.9 - Attention-deficit hyperactivity disorder, unspecified type Plan: Patient?notes?that?medication?is?not?helping?for?his?long?in?her?day. Increasing?Vyvanse?from?20?mg?daily?to?30?mg?daily (3) Depression with anxiety: Code(s): F41.8 - Other specified anxiety disorders Plan: Had?increased?citalopram?to?40?mg?daily?and?this?is?helping. Had?also?changed?the?way?she?takes?her?lorazepam. (4) GERD (gastroesophageal reflux disease): Code(s): K21.9 - Gastro-esophageal reflux disease without esophagitis Plan: Patient?notes?GERD?symptoms?and?heartburn. Trial?omeprazole Orders: Orders TSH reflex Free T4 Today Z00.00 - Encounter for general adult medical exami nation without abnormal findings Comprehensive [place]. Panel Fast Today Z00.00 - Encounter for general adult medical examination without abnormal findings Microalbumin, Random (w Creat) Today I10 - Essential (primary) hypertension Lipid Panel Today Z00.00 - Encounter for general adult medical examination without abnormal findings UA and rflx microscopic Today Z00.00 - Encounter for general adult medical examination without abnormal findings US abdomen limited 09/15/24 K76.9 - Liver disease, unspecified, R74.8 - Abnormal levels of other serum enzymes Medications: Changed From lisdexamfetamine [facility] verified. Partial refill upon request. 20 mg PO QAM 30 days 30 caps 0RF F90.9 - Attention-deficit hyperactivity disorder, unspecified type To lisdexamfetamine [employer]Pat verified. Partial refill upon request. 30 mg PO QAM 30 days 30 caps 0RF F90.9 - Attention-deficit hyperactivity disorder, unspecified type From albuterol sulfate 90 mcg/actuation (Ventolin HFA) 2 puffs inhalation Q4-6H PRN 8.5 grams 0RF shortness of breath or wheezing To albuterol sulfate 90 mcg/actuation (Ventolin HFA) 2 puffs inhalation Q4-6H 30 days PRN 8.5 grams 6RF shortness of breath or wheezing Coding Level of Care Code Est Pt Level 4 (76135) Diagnoses Elevated liver enzymes R74.8 ADHD F90.9 Depression with anxiety F41.8 GERD (gastroesophageal reflux disease) K21.9
[2024-02-19 09:45] VITALS: BP 122/80; PULSE 76; O2SAT 99; BMI 32.2
== END 2024-02-19 10:21 | disposition home or self-care (01) ==
PROVIDERS: PCP Family Medicine; Visit Provider Family Medicine
DX: R74.8 Abnormal levels of other serum enzymes (principal); F90.9 Attention-deficit hyperactivity disorder, unspecified type; F41.8 Other specified anxiety disorders; K21.9 Gastro-esophageal reflux disease without esophagitis
CPT/HCPCS: 99214

== ENCOUNTER 2024-06-25 08:48 | Outpatient (AMB) | payer OTHER, SELFPAY ==
--- NOTE | 2024-06-25 09:01 | A.OFFPC_ITS ---
Vital Signs 06/25/24 09:06 Height 5 ft 6 in Weight 180 lb BMI 29.0 BP 96/60 Blood Pressure Location Rt brachial Position Sitting Respiration 16 Pulse 62 Pulse Source Pulse Oximeter Temp 97.7 F Temp Source Tympanic Pulse Oximetry (%) 99 Oxygen Delivery Method Room Air Intake Visit Reasons: annual pe Intake Note: CPE Allergies No Known Allergies Allergy (Verified 06/25/24 09:02) Medication List - Last Reconciled 06/25/24 by Cyril Farooq MD albuterol sulfate 90 mcg/actuation (Ventolin HFA) 2 puffs inhalation Q4-6H PRN 30 days bupropion HCl 75 mg PO BID 30 days citalopram 40 mg (2 x 20 mg) PO DAILY 30 days lisdexamfetamine 30 mg PO QAM 30 days lorazepam 1 - 2 tabs daily orally daily PRN; [facility] verified. Partial refill upon request. 30 days omeprazole 20 mg PO DAILY 30 days Tobacco use date assessed: 06/25/24 Dental Screening Dental Screen Date: 06/25/24 Did you have a dental visit in the last 12 months?: No Did you have a dental problem in the last 6 months where you did not have access to dental care?: No Was dental information given to patient?: Patient has dentist HPI annual pe HPI Details 33 y/o female presents for an extended e xam with f/u labs and health maintenance. No recent labs to review. PHQ-9 15, VERENA-7 17 today. She is on citalopram 40mg, bupropion 75mg b.i.d, vyvanse 30mg, lorazepam. Pt notes ongoing anxiety, especially with public places. Does not currently have a therapist and states she does not have the time for this due to 12 hour work days. Up to date with pap smears. [facility] Surgical History History of ear surgery Family History Mother No problems noted. Father Heart disease Social History (Updated 06/25/24 @ 09:03 by Sobia Vera MA) Housing: House Alcohol intake: never Patient Tobacco Use Status: Former Tobacco user Years Smoked: 15 +/- e-Cigarette/Vaping Use: Currently Using Use of substances other than those prescribed or required for medical reasons: Yes Substance Use Type: Marijuana service: No Current occupational status: employed Current occupational exposures/hazards: No Cognitive needs: No Hearing needs: No Vision needs: Yes (wears glasses) Questionnaire PHQ-9 Over the last 2 weeks, how often have you been bothered by any of the following problems? 1. Little interest or pleasure in doing things: several days 2. Feeling down, depressed, or hopeless: several days 3. Trouble falling or staying asleep, or sleeping too much: nearly every day 4. Feeling tired or having little energy: nearly every day 5. Poor appetite or overeating: nearly every day 6. Feeling bad about yourself - or that you are a failure or have let yourself or your family down: more than half the days 7. Trouble concentrating on things, such as reading the newspaper or watching television: several days 8. Moving or speaking so slowly that other people could have noticed. Or the opposite - being so fidgety or restless that you have been moving around a lot more than usual: several days 9. Thoughts that you would be better off or of hurting yourself in some way: not at all Total score: 15 Depression Screening Interpretation: Positive Depression Screening Done: Yes 69472 - PHQ-9 Billing: Yes Source: Developed by Drs. Gray Mendoza, Vanessa Isbell, Rodo Glover and colleagues, with an educational thuy from [employer]. Thrive Questionnaire Date Thrive assessed: 06/25/24 I am a: Patient What is your living situation today?: I choose not to answer this question Within the past 12 months, did the food you bought not last and you didn't have the money to get more?: I choose not to answer this question Within the past 12 months, did you worry whether your food would run out before you got money to buy more?: I choose not to answer this question Do you have trouble paying for medicines?: I choose not to answer this question Do you have trouble getting transportation to medical appointments?: I choose not to answer this question Do you have trouble paying your heating and electricity bill?: I choose not to answer this question Do you have trouble taking care of your child, family member or friend?: I choose not to answer this question Do you have trouble with day-to-day activities such as bathing, preparing meals, shopping, managing finances, etc.?: I choose not to answer this question Are you currently unemployed and looking for a job?: I choose not to answer this question Are you interested in more education?: I choose not to answer this question Please select the resources that you would like help with: None Currently or been in a relationship where the following occur: I choose not to answer THRIVE Score: 0 VERENA-7 AMB Questionnaire VERENA-7 Date VERENA - 7 assessed: 06/25/24 Feeling nervous, anxious, or on edge: 3 = Nearly every day Not being able to stop or control worryin = Nearly every day Worrying too much about different things: 3 = Nearly every day Trouble relaxin = Nearly every day Being so restless that it is hard to sit still: 3 = Nearly every day Becoming easily annoyed or irritable: 2 = More than half the days Feeling afraid as if something awful might happen: 3 = Nearly every day Total VERENA-7 score (0-4 normal; 5-9 mild; 10-14 moderate; 15-21 severe): 20 Source: Developed by Drs. Gray Mendoza, Vanessa Isbell, Rodo Glover and colleagues, with an educational thuy from [employer]. VERENA-7 Assessment Billing VERENA-7 Assessment Tool: VERENA-7 Assessment 07687 Review of Systems Const Denies chills, Denies fatigue, Denies fever(s), Denies headache(s) and Denies weakness Eyes Denies change in vision ENT Denies dizziness and Denies headache(s) Card Denies dyspnea Resp Denies cough, Denies dyspnea, Denies wheezing and Denies other (shortness of breath) GI Denies abdominal pain, Denies melena, Denies hematochezia, Denies change in bowel habits, Denies dyspepsia and Denies nausea Denies hematuria and Denies dysuria Musc Denies numbness and Denies tingling Skin/Breast Denies rash, Denies unusual bruising and Denies wounds Neuro Denies dizziness, Denies headache(s), Denies numbness, Denies Sensory deficit (Neuro), Denies tingling and Denies weakness Psych Reports anxiety and Reports depression Endo Denies fatigue Armando/Lymph Denies easy bleeding and Denies easy bruising Aller/Immun Denies wheezing Physical exam (Primary Care) Vital Signs: Last Vital Signs Temp 97.7 F 06/25/24 09:06 Pulse 62 06/25/24 09:06 Resp 16 06/25/24 09:06 BP 96/60 06/25/24 09:06 Pulse Ox 99 06/25/24 09:06 Oxygen Delivery Method Room Air 06/25/24 09:06 BMI result Body Mass Index 29.0 Tobacco/Smoking Status: Tobacco use Status Tobacco use date assessed 06/25/24 06/25/24 09:06 Patient Tobacco Use Status Former Tobacco user 06/25/24 09:06 e-Cigarette/Vaping Use Currently Using 06/25/24 09:06 PHQ-9: PHQ-9 Score PHQ-9: Total score 15 06/25/24 09:42 Depression Screening Interpretation: Positive Thrive Assessment: Date of Thrive Assessment Date Thrive assessed 06/25/24 06/25/24 09:06 Currently or been in a relationship where the following occur: I choose not to answer Const General: well developed; No acute distress Nutritional Appearance: well nourished Orientation/consciousness: patient oriented x3 HENMT Head: Yes normocephalic and Yes atraumatic Ears: hearing grossly normal bilaterally and TM's normal bilaterally General nose exam: Normal external nose present and Normal nares present Mouth: Normal oral and palatal mucosa present and moist mucous membranes Teeth and gingiva: dentition normal Throat: Yes posterior oropharynx normal Eyes General: appearance normal, both eyes and all related structures Pupils: Equal, round and reactive pupils present EOM: EOMs intact bilaterally Neck Neck: Yes normal visual inspection, Yes no lymphadenopathy and Yes trachea midline Thyroid: Thyroid normal Carotids: no bruits Lymphatic: no lymphadenopathy noted Chest Chest palpation & inspection: normal inspection of the chest Resp Effort & Inspection: normal respiratory effort Auscultation: clear to auscultation bilaterally Cardio Rate: regular rate Rhythm: regular rhythm Heart sounds: S1 normal heart sound present, S2 normal heart sound present, no gallops, no murmurs and no rubs Bruits: no abdominal aortic bruits and no carotid bruits GI Palpation (GI): No Abdominal aortic bruit present, Soft to palpation, nontender, No hepatosplenomegaly present and No Rebound tenderness present Auscultation: normal bowel sounds General: Yes no CVA tenderness Back/Spine/Pelvis Back: no CVA tenderness Cervical Spine: cervical ROM normal and No Cervical spine tenderness Thoracic/Lumbar Spine: thoraco-lumbar ROM normal, No pain with thoraco-lumbar ROM, No thoracic spinal tenderness and No lumbar spinal tenderness Skin Lesions: no lesions Rashes: no rashes Trauma: no lacerations or abrasions Wounds: no wounds Nails: normal Neuro General: patient oriented x3 and gait normal Cranial nerves: Yes Equal, round and reactive pupils present Cognition (Neuro): normal cognition Gait exam (Neuro): Normal gait present Motor exam (neuro): 5/5 motor strength present throughout Sensory Exam: No Sensory deficit (Neuro) Deep tendon reflexes (DTR's): Right patellar reflex intensity grade: 2+ and Left patellar reflex intensity grade: 2+ Extrem General: Yes normal to inspection and No edema Psych Appearance: grossly normal Affect: normal affect Attitude: cooperative Thought process: Normal thought process present Assessment and Plan Assessment & Plan (1) Liver hemangioma: Code(s): D18.03 - Hemangioma of intra-abdominal structures Plan: Prior?ultrasound?shows?likely?hemangioma?and?recommended?follow-up Should?follow-up?in?about?3?months. Ultrasound?is?ordered?for?September We?will?discuss?further?at?her?next?visit (2) Depression with anxiety: Code(s): F41.8 - Other specified anxiety disorders Plan: Ongoing/worsening?anxiety?and?depression. She?is?on?citalopram?and?lorazepam?but?still?having?difficulty Referred?to?[facility]?psychiatric?outpatient?consult?team While?awaiting?the?above,?will?also?trial?Abilify?at?bedtime (3) ADHD: Code(s): F90.9 - Attention-deficit hyperactivity disorder, unspecified type Plan: Continue?current?medication (4) Screening for cervical cancer: Code(s): Z12.4 - Encounter for screening for malignant neoplasm of cervix Plan: Patient?thinks?she?had?a?Pap?s mear?about?2?years?ago.??She?has?never?had?an?abnormal?Pap Likely?due?for?follow-up?in?1?year She?will?contact?her?OBGYN?to?inquire (5) Adult general medical exam: Code(s): Z00.00 - Encounter for general adult medical examination without abnormal findings Plan: 33-year-old?female?presents?for?an?extended?exam Orders: Referrals Psychiatry Outpatient Consultation Service F41.8 - Other specified anxiety disorders Medications: New aripiprazole (Abilify) 2 mg PO BEDTIME 30 days 30 tabs 0RF Refilled lorazepam 1 - 2 tabs daily orally daily PRN; [facility] verified. Partial refill upon request. 30 days 10 tabs 0RF anxiety F41.9 - Anxiety disorder, unspecified citalopram 40 mg (2 x 20 mg) PO DAILY 30 days 60 tabs 3RF Coding Level of Care Code Est Pt Level 4 (66447) Diagnoses Liver hemangioma D18.03 Depression with anxiety F41.8 ADHD F90.9 Screening for cervical cancer Z12.4 Adult general medical exam Z00.00 Additional Codes VERENA-7 Assessment Billing - VERENA-7 Assessment Tool: VERENA-7 Assessment [id number] ([id number])
[2024-06-25 09:06] VITALS: BP 96/60; PULSE 62; RESP 16; TEMP 36.5; O2SAT 99; BMI 29.0
== END 2024-06-25 10:00 | disposition home or self-care (01) ==
PROVIDERS: PCP Family Medicine; Visit Provider Family Medicine
DX: Z00.00 Encounter for general adult medical examination without abnormal findings (principal); R93.2 Abnormal findings on diagnostic imaging of liver and biliary tract; F41.8 Other specified anxiety disorders; F90.9 Attention-deficit hyperactivity disorder, unspecified type
CPT/HCPCS: 96127; 99395

== ENCOUNTER 2024-06-25 10:14 | Outpatient (REF) | payer OTHER, SELFPAY ==
[2024-06-25 12:01] LABS: Alanine Aminotransferase 28 U/L (0-31); Albumin Level 4.1 g/dL (3.5-5.0); Alkaline Phosphatase 67 U/L (39-117); Anion Gap 11 (12-20); Aspartate Amino Transferase 25 U/L (5-31); Blood Urea Nitrogen 7 mg/dL (9-16); Calcium 9.1 mg/dL (8.4-10.2); Carbon Dioxide 26 mmol/L (22-29); Chloride 107 mmol/L (96-108); Cholesterol 159 mg/dL (<200); Estimated Glomerular Filt Rate > 60; Glucose Fasting 85 mg/dL (60-99); HDL Cholesterol 52 mg/dL (>40); LDL Cholesterol Calculated 97 mg/dL (<100); Potassium 3.7 mmol/L (3.3-5.1); Sodium 140 mmol/L (135-145); Total Protein 6.8 g/dL (6.5-8.0); Triglycerides 51 mg/dL (<150)
[2024-06-25 12:16] LABS: TSH reflex Free T4 0.96 uIU/mL (0.32-4.0)
[2024-06-25 12:26] LABS: Bilirubin Total 0.5 mg/dL (0.0-1.0)
[2024-06-25 14:38] LABS: Appearance Urine Clear; Color Urine Yellow; Glucose Urine UA Negative (Negative); Leukocyte Esterase Urine Trace (Negative); Nitrite Urine Negative (Negative); Specific Gravity - Urine <= 1.005 (1.005-1.025); UMIC TRIGGER UA YES; Urine Blood Negative (Negative); Urine Ketones Negative (Negative); Urine Protein Negative (Neg-Trace)
[2024-06-25 14:50] LABS: Bacteria Urine None Seen (None Seen); Hyaline Casts Urine 0-2 /LPF (0-2); RBC Urine 0-2 /HPF (0-2); WBC Urine 0-5 /HPF (0-5)
[2024-06-25 15:20] LABS: Microalbumin Urine < 5.0 mg/L
== END 2024-06-25 10:15 | disposition home or self-care (01) ==
LOC: HO.WFDLDS 10:14
PROVIDERS: Visit Provider Family Medicine
DX: Z00.00 Encounter for general adult medical examination without abnormal findings (principal); I10 Essential (primary) hypertension
CPT/HCPCS: 36415; 80053; 80061; 81001; 82043; 82570; 84443

== ENCOUNTER 2024-08-04 15:11 | Outpatient (AMB) | payer OTHER, SELFPAY ==
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
== END 2024-08-04 16:17 | disposition home or self-care (01) ==
LOC: HO.HOP 15:11
PROVIDERS: PCP Family Medicine; Visit Provider Clinical Nurse Specialist Psychiatric/Mental Health
DX: F90.2 Attention-deficit hyperactivity disorder, combined type (principal); F41.1 Generalized anxiety disorder; F41.0 Panic disorder [episodic paroxysmal anxiety]; F32.4 Major depressive disorder, single episode, in partial remission
CPT/HCPCS: 90792

== ENCOUNTER → 2024-08-04 15:11 | Outpatient (BNVA) | payer OTHER, SELFPAY | PROVIDERS: PCP Family Medicine; Visit Provider Clinical Nurse Specialist Psychiatric/Mental Health | DX: F90.2 Attention-deficit hyperactivity disorder, combined type (principal); F41.1 Generalized anxiety disorder; F41.0 Panic disorder [episodic paroxysmal anxiety]; F32.4 Major depressive disorder, single episode, in partial remission | CPT/HCPCS: 90792 ==

== ENCOUNTER 2024-08-06 09:25 | Outpatient (AMB) | payer OTHER, SELFPAY ==
[2024-08-06 10:06] VITALS: BP 118/65; PULSE 79; RESP 16; TEMP 36.8; O2SAT 100; BMI 27.8
--- NOTE | 2024-08-06 10:06 | A.OFFPC_ITS ---
Vital Signs 08/06/24 10:06 Height 5 ft 6 in Weight 172 lb 2 oz BMI 27.8 BP 118/65 Blood Pressure Location Lt brachial Position Sitting Respiration 16 Pulse 79 Pulse Source Pulse Oximeter Temp 98.2 F Temp Source Temporal Artery Scan Pulse Oximetry (%) 100 Oxygen Delivery Method Room Air Intake Visit Reasons: F/U LABS, DEPRESSION/ANXIETY Intake Note: f/u labs and anxiet and depression Allergies No Known Allergies Allergy (Verified 08/06/24 10:12) Medication List - Last Reconciled 08/06/24 by Cyril Farooq MD albuterol sulfate 90 mcg/actuation (Ventolin HFA) 2 puffs inhalation Q4-6H PRN 30 days aripiprazole (Abilify) 2 mg PO BEDTIME 30 days citalopram 40 mg (2 x 20 mg) PO DAILY 30 days lisdexamfetamine (Vyvanse) 40 mg PO QAM olanzapine 5 mg orally take 1/2 tab at bedtime and may take 1/2 tab daily if needed for panic and over-thinking; omeprazole 20 mg PO DAILY 30 days Tobacco use date assessed: 06/25/24 Dental Screening Dental Screen Date: 06/25/24 HPI F/U LABS, DEPRESSION/ANXIETY HPI Details 33 y/o female presents to f/u anxiety/de pression and CPE-labs. Had continued her citalopram, lorazepam and added Abilify. Referred her to [facility] psychiatric outpatient consult team. Had seen psychiatry 08/04/24. Had given her olanzapine and increased her vyvanse. She notes she has not trialed olanzapine yet. Labs drawn 06/25/24. Reviewed labs with pt. Triglycerides 51. TC 159. LDL 97. HDL 52. PFSH Surgical History History of ear surgery Family History Mother No problems noted. Father Heart disease Social History (Updated 06/25/24 @ 09:03 by ARINA Alvarado) Housing: House Alcohol intake: never Patient Tobacco Use Status: Former Tobacco user Years Smoked: 15 +/- e-Cigarette/Vaping Use: Currently Using Substance Use Type: Marijuana service: No Current occupational status: employed Current occupational exposures/hazards: No Cognitive needs: No Hearing needs: No Vision needs: Yes (wears glasses) Questionnaire Thrive Questionnaire Date Thrive assessed: 08/06/24 I am a: Patient What is your living situation today?: I choose not to answer this question Within the past 12 months, did the food you bought not last and you didn't have the money to get more?: I choose not to answer this question Within the past 12 months, did you worry whether your food would run out before you got money to buy more?: I choose not to answer this question Do you have trouble paying for medicines?: I choose not to answer this question Do you have trouble getting transportation to medical appointments?: I choose not to answer this question Do you have trouble paying your heating and electricity bill?: I choose not to answer this question Do you have trouble taking care of your child, family member or friend?: I choose not to answer this question Do you have trouble with day-to-day activities such as bathing, preparing meals, shopping, managing finances, etc.?: I choose not to answer this question Are you currently unemployed and looking for a job?: I choose not to answer this question Are you interested in more education?: I choose not to answer this question Please select the resources that you would like help with: None Currently or been in a relationship where the following occur: I choose not to answer THRIVE Score: 0 AUDIT C Alcohol Use Questionnaire (AUDIT-C) 1. How often do you have a drink containing alcohol?: Monthly or less 2. How many drinks containing alcohol do you have on a typical day when you are drinking?: 1 or 2 3. How often do you have six or more drinks on one occasion?: Less than monthly Total Score: 2 VERENA-7 AMB Questionnaire VERENA-7 Date VERENA - 7 assessed: 06/25/24 Source: Developed by Drs. Gray Mendoza, Vanessa Isbell, Rodo Glover and colleagues, with an educational thuy from [employer]. Review of Systems Const Denies chills, Denies fatigue, Denies fever(s), Denies headache(s) and Denies weakness ENT Denies dizziness and Denies headache(s) Card Denies dyspnea Resp Denies cough, Denies dyspnea, Denies wheezing and Denies other (shortness of breath) Musc Denies numbness and Denies tingling Neuro Denies dizziness, Denies headache(s), Denies numbness, Denies tingling and Denies weakness Psych Denies anxiety and Denies depression Endo Denies fatigue Aller/Immun Denies wheezing Physical exam (Primary Care) Vital Signs: Last Vital Signs Temp 98.2 F 08/06/24 10:06 Pulse 79 08/06/24 10:06 Resp 16 08/06/24 10:06 BP 118/65 08/06/24 10:06 Pulse Ox 100 08/06/24 10:06 Oxygen Delivery Method Room Air 08/06/24 10:06 BMI result Body Mass Index 27.8 Tobacco/Smoking Status: Tobacco use Status Tobacco use date assessed 06/25/24 08/06/24 10:11 Patient Tobacco Use Status Former Tobacco user 08/06/24 10:11 e-Cigarette/Vaping Use Currently Using 08/06/24 10:11 Thrive Assessment: Date of Thrive Assessment Date Thrive assessed 08/06/24 08/06/24 10:11 Currently or been in a relationship where the following occur: I choose not to answer Const General: well developed; No acute distress Nutritional Appearance: well nourished Orientation/consciousness: patient oriented x3 HENMT Head: Yes normocephalic and Yes atraumatic Eyes General: appearance normal, both eyes and all related structures Pupils: Equal, round and reactive pupils present EOM: EOMs intact bilaterally Resp Effort & Inspection: normal respiratory effort Neuro General: patient oriented x3 and gait normal Cranial nerves: Yes Equal, round and reactive pupils present Psych Affect: normal affect Coding Level of Care Code Est Pt Level 3 (59585) Diagnoses Depression with anxiety F41.8 ADHD F90.9 Elevated liver enzymes R74.8 Assessment & Plan Assessment & Plan (1) Depression with anxiety: Code(s): F41.8 - Other specified anxiety disorders Category: Medical Plan: Now?followed?by?[facility]?psychiatric?consult?team Abilify?switched?to?olanzapine Bupropion?switched?to?citalopram Vyvanse?increased Patient?is?feeling?somewhat?better.??She?has?not?started?olanzapine?yet?but?will ?do?so?this?weekend. Follow-up?with?psych?consult?team?as?recommended (2) ADHD: Code(s): F90.9 - Attention-deficit hyperactivity disorder, unspecified type Category: Medical Plan: Improved Follow-up?with?[facility]?psych?consult?team?as?recommended (3) Elevated liver enzymes: Code(s): R74.8 - Abnormal levels of other serum enzymes Category: Medical Plan: Liver?enzymes?back?within?normal?range. Since?the?beginning?of?the?year?she?has?lost?about?47?lb. Also?has?hemangioma. We?can?continue?monitoring?liver?enzymes?periodically Continue?working?at?healthy?diet?and?weight?loss Hydrate?well Avoid?high?doses?of?Tylenol, dehydration?or?alcohol. Orders: Orders Comprehensive [place]. Panel Fast Today Z00.00 - Encounter for general adult medical examination without abnormal findings TSH reflex Free T4 Today Z00.00 - Encounter for general adult medical examin ation without abnormal findings Complete Blood Count Auto Diff Today Z00.00 - Encounter for general adult medical examination without abnormal findings UA and rflx microscopic Today Z00.00 - Encounter for general adult medical examination without abnormal findings Microalbumin, Random (w Creat) Today I10 - Essential (primary) hypertension
== END 2024-08-06 10:32 | disposition home or self-care (01) ==
PROVIDERS: PCP Family Medicine; Visit Provider Family Medicine
DX: F41.8 Other specified anxiety disorders (principal); F90.9 Attention-deficit hyperactivity disorder, unspecified type; R74.8 Abnormal levels of other serum enzymes

== ENCOUNTER → 2024-08-06 09:25 | Outpatient (BNVA) | payer OTHER, SELFPAY | PROVIDERS: PCP Family Medicine; Visit Provider Family Medicine | DX: F41.8 Other specified anxiety disorders (principal); F90.9 Attention-deficit hyperactivity disorder, unspecified type; R74.8 Abnormal levels of other serum enzymes; B00.1 Herpesviral vesicular dermatitis; Z79.899 Other long term (current) drug therapy | CPT/HCPCS: 99212 ==

== ENCOUNTER 2024-09-02 15:36 | Outpatient (AMB) | payer OTHER, SELFPAY ==
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
== END 2024-09-02 16:07 | disposition home or self-care (01) ==
LOC: HO.HOP 15:36
PROVIDERS: PCP Family Medicine; Visit Provider Clinical Nurse Specialist Psychiatric/Mental Health
DX: F32.4 Major depressive disorder, single episode, in partial remission (principal); F41.1 Generalized anxiety disorder; F41.0 Panic disorder [episodic paroxysmal anxiety]; F90.2 Attention-deficit hyperactivity disorder, combined type
CPT/HCPCS: 99214

== ENCOUNTER → 2024-09-02 15:36 | Outpatient (BNVA) | payer OTHER, SELFPAY | PROVIDERS: PCP Family Medicine; Visit Provider Clinical Nurse Specialist Psychiatric/Mental Health | DX: F32.4 Major depressive disorder, single episode, in partial remission (principal); F41.1 Generalized anxiety disorder; F41.0 Panic disorder [episodic paroxysmal anxiety]; F90.2 Attention-deficit hyperactivity disorder, combined type | CPT/HCPCS: 99212 ==

== ENCOUNTER 2024-10-30 11:29 | Outpatient (AMB) | payer OTHER, SELFPAY ==
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
== END 2024-10-30 11:53 | disposition home or self-care (01) ==
LOC: HO.HOP 11:29
PROVIDERS: PCP Family Medicine; Visit Provider Clinical Nurse Specialist Psychiatric/Mental Health
DX: F32.4 Major depressive disorder, single episode, in partial remission (principal); F41.1 Generalized anxiety disorder; F41.0 Panic disorder [episodic paroxysmal anxiety]; F90.2 Attention-deficit hyperactivity disorder, combined type
CPT/HCPCS: 99214

== ENCOUNTER → 2024-10-30 11:29 | Outpatient (BNVA) | payer OTHER, SELFPAY | PROVIDERS: PCP Family Medicine; Visit Provider Clinical Nurse Specialist Psychiatric/Mental Health | DX: F32.4 Major depressive disorder, single episode, in partial remission (principal); F41.1 Generalized anxiety disorder; F41.0 Panic disorder [episodic paroxysmal anxiety]; F90.2 Attention-deficit hyperactivity disorder, combined type; Z79.899 Other long term (current) drug therapy | CPT/HCPCS: 99212 ==

== ENCOUNTER 2025-01-16 08:19 | Emergency (ER) | payer OTHER, SELFPAY ==
--- NOTE | ~2025-01-16 | CT_ITS ---
EXAMINATION: CT TEMPORAL BONES. CLINICAL INFORMATION: Right ear pain. Bleeding. Question ruptured tympanic membrane. COMPARISON: No priors. TECHNIQUE: Contiguous axial images through the temporal bones with bone algorithm. Sagittal and coronal reformatted images acquired. This CT examination was performed using dose optimization techniques as appropriate, variously including the following: *Automated exposure control *Adjustment of mA and/or kV according to patient size (this includes techniques or standardized protocols for targeted exams where dose is matched to indication/reason for exam; i.e. extremities or head) *Use of iterative reconstruction technique DLP: 247 mGy centimeter. FINDINGS: RIGHT TEMPORAL BONE: External auditory canal: Patency of the osseous and cartilage segment without soft tissue mass. Tympanic membrane: Thickened with questionable 0.3 mm defect in the pars tensa. Tympanic cavity: There is attenuation involving the mesotympanum, hypotympanum and Prussak's space. Tegmen tympani: Intact. Sinus tympanic: Secretions and/or soft tissue attenuation. [place]: Bony erosion without malalignment. Round and oval window: Desiccation and or soft tissue attenuation. Facial recess: Secretions and or soft tissue attenuation. Aditus at antrum, mastoid antrum and mastoid air cells: Secretions with the high density/ 86 Hounsfield unit measurements . No coalescent pattern. Fallopian canal/labyrinthine, geniculate, tympanic and mastoid segments facial nerve canal: Intact. Cochlear: Intact. Vestibule: Intact. Semicircular canals: Intact. Cochlear and vestibular aqueduct: Not enlarged. Internal auditory canal: Intact and not enlarged. Carotid canal: Intact. Jugular bulb: Intact and at the hypotympanum level. Temporomandibular joint: Intact. LEFT TEMPORAL BONE: External auditory canal: Postsurgical changes. No focal stenosis or soft tissue lesion. Tympanic membrane: Postsurgical changes with 2 mm thickness. Tympanic cavity: Postsurgical changes and mucosal thickening in the hypotympanum. Tegmen tympani: Intact. Sinus tympanic: Aerated. Ossicles: Absent. Round and oval window: Mucosal thickening and secretions in the round window. Facial recess: Intact. Aditus at antrum, mastoid antrum and mastoid air cells: Post surgical changes/resection. Fallopian canal/labyrinthine, geniculate, tympanic and mastoid segments facial nerve canal: Intact. Cochlear: Intact. Vestibule: Intact. Semicircular canals: Intact. Cochlear and vestibular aqueduct: Not enlarged. Internal auditory canal: Intact and are not enlarged. Carotid canal: Intact. Jugular bulb: Intact. Temporomandibular joint: Intact. Ancillary findings: Polypoid mucosal thickening in the maxillary sinuses and sphenoid sinus with air-fluid levels. Mucosal thickening, ethmoid air cells. CT/CT mastoid IMPRESSION: Probable ruptured right tympanic membrane. Inflammatory processes concerning for cholesteatoma, right petrous bone. High riding right internal jugular bulb. Postsurgical changes left petrous bone. Polypoid acute on chronic paranasal sinus disease. Electronically signed by: Nakul Whitman MD 01/16/2025 01:10 PM EDT
[2025-01-16 08:25] VITALS: BP 113/82; PULSE 85; RESP 18; TEMP 36.7; O2SAT 99; BMI 28.0
--- OUTSIDE RECORDS SUMMARY | 2025-01-16 09:26 | XMS_ITS | Encounter Summary ---
Author Organization [facility] Address [address] [place] [id number] Phone Care Team Providers Care Upholstery Instructor Name Role Phone Chrissy Figueroa MD Primary Care Provider [phone] Encounter Details Date Type Department Care Team (Late st Contact Info) Description 10/25/2016 Documentation EM Family Medicine [address] [place] [address] Family Medicine, Physician [address] [place], [place] [id number] Social History Tobacco Use Types Packs/Day Years Used Date Smoking Tobacco: Never Assessed Comments Unknown Sex and Gender Information Value Date Recorded Sex Assigned at Not on file Legal Sex Female 4:28 PM EDT Gender Identity Not on file Sexual Orientation Not on file documented as of this encounter Plan of Treatment Not on file documented as of this encounter Visit Diagnoses Not on filedocumented in this encounter Care Teams Upholstery Instructor Relationship Specialty Start Date End Date Chrissy Figueroa MD [address] [place], [place] [address] [address] PCP - General 05/25/17 documented as of this encounter
--- OUTSIDE RECORDS SUMMARY | 2025-01-16 09:27 | XMS_ITS | Encounter Summary ---
Author Organization [facility] Address [address] [place] [address] Phone Care Team Providers Care Energy Technician Name Role Phone Chrissy Figueroa MD Primary Care Provider [phone] Encounter Details Date Type Department Care Team (Late st Contact Info) Description 05/31/2017 Conversion Encounter [facility] [address] [place] [address] Social History Tobacco Use Types Packs/Day Years [...] on filedocumented in this encounter Care Teams Energy Technician Relationship Specialty Start Date End Date Chrissy Figueroa MD [address] [place] [address] PCP - General 05/25/17 documented as of this encounter
--- OUTSIDE RECORDS SUMMARY | 2025-01-16 09:27 | XMS_ITS | Encounter Summary ---
Author Organization [facility] Address [address] [place] [address] Phone Care Team Providers Care Facilities Director Name Role Phone Chrissy Figueroa MD Primary Care Provider [phone] Encounter Details Date Type Department Care Team (Late st Contact Info) Description 03/04/2010 Documentation EM Family Medicine [address] [place] [address] Family Medicine, Physician [address] [place], [place] [id number] Social History Tobacco Use Types Packs/Day Years [...] on filedocumented in this encounter Care Teams Facilities Director Relationship Specialty Start Date End Date Chrissy Figueroa MD [address] [place], [place] [address] [address] PCP - General 05/25/17 documented as of this encounter
--- OUTSIDE RECORDS SUMMARY | 2025-01-16 09:27 | XMS_ITS | Clinical Summary ---
Author Organization [facility] Address [address] [place] [address] Phone Care Team Providers Care [place] Name Role Phone Chrissy Figueroa MD Primary Care Provider [phone] Immunizations Immunization Administration Dates Next Due DTP 04/13/1993, 2,02/12/1992,12/12 DTaP 5 03/14/1997 HPV, Quadrivalent 11/04/2008,08/27/2008 Hep B, ped/adol 09/19/2006,08/10/2004,06/16/2004 Hib (PRP-T) 02/11/1993, 2,02/12/1992,01/12 IPV 03/14/1997, 3,02/12/1992,12/12 Influenza, injectable, trivalent 08/27/2008 MMR 03/14/1997,01/12/1993 Meningococcal Conj (Menactra) MCV4P 09/19/2006 Td (adult) (MBL), 2 Lf tetan us toxoid, PF, adsorbed 06/09/2004 Tdap 11/04/2008 Varicella 11/04/2008,06/15/2004 Family History Relation Name Status Comments Father Alive Father: Alive a nd well Mother Alive Mother: Alive a nd well Other Family history of Diabetes mellitus Social History Tobacco Use Types Packs/Day Years Used Date Smoking Tobacco: Never Assessed Comments Unknown Sex and Gender Information Value Date Recorded Sex Assigned at Not on file Legal Sex Female 4:28 PM EDT Gender Identity Not on file Sexual Orientation Not on file Plan of Treatment Health Maintenance Due Date Last Done Comments HPV Vaccines (3 - 3-dose series) 02/24/2009 11/04/2008, 08/27/2008 DTaP,Tdap,and Td Vaccines (7 - Td or Tdap) 11/04/2018 11/04/2008, 06/09/2004, 03/14/1997, Additional history exists Influenza Vaccines (#1) 2024 08/27/2008 COVID-19 Vaccine ( season) 2024 HIB Vaccines Completed 02/11/1993, 02/14, 02/12/1992, Additional history exists IPV Vaccines Completed 03/14/1997, 03/17, 02/12/1992, Additional history exists MMR Vaccines Completed 03/14/1997, 01/12/1993 Hepatitis B Vaccines Completed 09/19/2006, 08/10/2004, 06/16/2004 Meningococcal Vaccine Aged Out 09/19/2006 No allen boubacar eligible based on patient's age to complete this topic Varicella Vaccines Completed 11/04/2008, 06/15/2004 Hepatitis A Vaccines Aged Out No long er eligible based on patient's age to complete this topic Men B Vaccine Aged Out No longer elig ible based on patient's age to complete this topic Pneumococcal Vaccine Aged Out No long er eligible based on patient's age to complete this topic Care Teams [place] Relationship Specialty Start Date End Date Chrissy Figueroa MD [address] [facility] [place] [address] PCP - General 05/25/17
--- NOTE | 2025-01-16 09:51 | ED.EAR ---
HPI - Ear Problem General Chief complaint: Ear Problems Stated complaint: Bleeding from R Ear X 2 Days Time Seen by Provider: 01/16/25 09:03 Source: patient Mode of arrival: ambulatory Limitations: no limitations History of Present Illness ED Provider: AYESHA REESE PA-C HPI Narrative: 34 year old female with pmhx significant for GERD, liver hemangioma, ADHD, MDD, anxiety presents to the ED today for evaluation of right ear pain since yesterday. Reports 1 week of head/nasal congestion. She began to have a right earache yesterday. She began to apply warm compresses however quickly and noticed bloody discharge from the right ear. Reports associated decreased hearing to the right ear. Reports extensive surgical history to bilateral ears. She reports operation to remove a cholesteatoma. Cartilage from her right ear was used to restructure her right TM. She also has ear tubes bilaterally. Reports associated congestion, nausea, and vomiting since yesterday. Denies fever, chills, abd pain, sore throat. Denies history of diabetes. Denies blunt injury or trauma to the ear. Denies sticking anything in her ear such as Q-tips. Denies left ear pain. Denies recent flights or swimming. Related Data Previous Rx's ?Medication ?Instructions ?Recorded albuterol sulfate 90 mcg/actuation 2 puff inhalation Q4-6H PRN 02/19/24 aerosol inhaler (Ventolin HFA) shortness of breath or wheezing 30 days #8.5 grams valacyclovir 500 mg tablet 500 mg PO DAILY 14 days #14 tabs 08/06/24 citalopram 20 mg tablet 40 mg (2 x 20 mg) PO DAILY 30 days 10/24/24 #60 tabs omeprazole 20 mg capsule,delayed 20 mg PO DAILY 30 days #30 caps 10/24/24 release olanzapine 5 mg tablet 5 mg PO .COMPLEX #30 tabs 10/30/24 lisdexamfetamine 40 mg capsule 40 mg PO QAM #30 caps 01/15/25 (Vyvanse) amoxicillin 875 mg-potassium 1 tab PO BID 7 days #14 tabs 01/16/25 clavulanate 125 mg tablet ciprofloxacin 0.3 %-dexamethasone 4 drp otic (ear) right BID 7 days 01/16/25 0.1 % ear drops,suspension #7.5 mL Allergies Allergy/AdvReac Type Severity Reaction Status Date / Time No Known Allergies Allergy Verified 01/16/25 08:26 Review of Systems Review of Systems: Yes all other systems are reviewed and are negative [facility] Past Medical History Attestation statement: The following information was validated with the patient. Source: old records reviewed and nursing notes reviewed Surgical History History of ear surgery Family History Family History Mother No problems noted. Father Heart disease Social History Social History Housing: House Alcohol intake: never Patient Tobacco Use Status: Former Tobacco user Years Smoked: 15 +/- e-Cigarette/Vaping Use: Currently Using Substance Use Type: Marijuana service: No Current occupational status: employed Current occupational exposures/hazards: No Cognitive needs: No Hearing needs: No Vision needs: Yes (wears glasses) Physical Exam Vital Signs: Vital Signs: Last Vital Signs Temp 97.7 F 01/16/25 14:24 Pulse 62 01/16/25 14:24 Resp 14 01/16/25 14:24 BP 124/83 01/16/25 14:24 Pulse Ox 100 01/16/25 14:24 O2 Del Method Room Air 01/16/25 14:24 BMI result Body Mass Index 28.0 Vital signs stable, afebrile General: Well appearing, in no acute distress. Skin: Warm, dry, intact. No rashes or lesions. Head: Normocephalic, atraumatic. EENT: Conjunctiva clear. PERRLA. EOM intact. Moist mucous membranes.? + No pain on manipulation of left pinna or tragus. No protrusion of the auricle. No mastoid tenderness, fluctuance, warmth. Left EAC without erythema, edema or discharge. TM intact without erythema, effusion, or bulging. + No pain on manipulation of right pinna or tragus. No protrusion of the auricle. No mastoid tenderness, fluctuance, warmth. Right EAC without edema. dried blood noted to EAC wtih clear discharge. questionable rupture of TM to 3 o'clock. Neck: Supple without LAD Cardiac: Chest wall symmetric. RRR Lungs: Normal respiratory effort without accessory muscle use. CTA bilaterally Abdomen: Soft, non-tender, non-distended. No rebound tenderness or guarding. Positive BS x4. Neuro: AOx3. Normal speech. Ambulating with steady gait Course Course Course Narrative: CBC without leukocytosis or left shift. No anemia. H&H stable. Chemistry without acute electrolyte abnormality requiring intervention. No MARIAMA. Liver function is at baseline. Beta quant undetectable. Negative COVID, flu, RSV. CT head/mastoid showing probable ruptured right tympanic membrane, inflammatory processes concerning for cholesteatoma to right petrous bone. High riding right internal jugular bulb. Postsurgical changes to left petrous bone (consistent with previous cholesteatoma excision). There was also polypoid acute on chronic paranasal sinus disease. > patient treated with Toradol and morphine in the ED with improvement. She is well-appearing. will treat with augmentin and ciprodex ear drops. she is agreeable. advised Motrin/tylenol for pain. discussed TM rupture precautions. Patient has remained stable throughout ED visit today. Discussed worrisome signs and symptoms and when to return to the ED. All questions answered at this time. Patient is agreeable with disposition and stable for discharge. Medications Administered Discontinued Medications Generic Name Dose Route Start Last Admin Trade Name Freq PRN Reason Stop Dose Admin Ketorolac Tromethamine 30 mg 01/16/25 09:45 01/16/25 10:26 Ketorolac Tromethamine 30 Mg/Ml Vial IM 01/16/25 09:46 30 mg ONCE ONE Administration Morphine Sulfate 15 mg 01/16/25 12:31 01/16/25 13:54 Morphine Sulfate Immed Release 15 Mg Tablet PO 01/16/25 12:32 15 mg ONCE ONE Administration Medical Decision Making Medical Decision Making [facility] Narrative: 34 year old female with pmhx significant for GERD, liver hemangioma, ADHD, MDD, anxiety presents to the ED today for evaluation of right ear pain since yesterday. Vital signs stable. Afebrile. She was tearful on exam however in no acute distress. On exam of right ear, there is No pain on manipulation of right pinna or tragus. No protrusion of the auricle. No mastoid tenderness, fluctuance, warmth. Right EAC without edema. dried blood noted to EAC wtih clear discharge. questionable rupture of TM to 3 o'clock. No tenderness to percussion of maxillary or frontal sinuses. Posterior oropharynx WNL. Lungs clear. Differential diagnosis includes otitis media, otitis externa, cholesteatoma, malignant otitis externa, mastoiditis, TM rupture, viral syndrome Plan for labs, viral swabs, CT mastoid, pain control, and re-evaluation. Differential Diagnosis Differential Diagnoses: The differential diagnosis associated with the presentation includes As above Admission/Observation not indicated. Lab Data MDM Lab Attestation statement: I reviewed the patient's lab results. as above. 01/16/25 10:25 01/16/25 10:25 Labs: Lab Results 01/16/25 Range/Units 10:25 WBC 8.8 (4.8-10.8) X10*3/uL RBC 4.43 (4.20-5.50) X10*6/uL Hgb 13.3 (12.0-16.0) g/dl Hct 38.6 (37.0-47.0) % MCV 87.1 (80.0-98.0) fL MCH 30.0 (27.0-33.0) pg MCHC 34.5 (31.0-35.0) g/dl RDW 12.2 (11.0-16.0) % Plt Count 230 D (160-400) X10*3/uL MPV 8.5 L (9.4-12.3) fL Immature Gran % (Auto) 0.3 (0.0-0.4) % Neut % (Auto) 67.1 (45-73) % Lymph % (Auto) 24.9 (20-40) % [place] % (Auto) 6.6 (2-11) % Eos % (Auto) 0.8 (0-4) % Baso % (Auto) 0.3 (0-2) % Lymph # (Auto) 2.2 (1.2-4.9) X10*3/uL [place] # (Auto) 0.6 (0.1-1.2) X10*3/uL Eos # (Auto) 0.1 (0.0-0.4) X10*3/uL Baso # (Auto) 0.0 (0.0-0.2) X10*3/uL Abs Immat Gran (auto) 0.03 (0.00-0.03) X10*3/uL Absolute Neuts (auto) 5.9 (2.0-8.3) x10*3/uL Absolute Nucleated RBC 0.000 (0.0-0.012) X10*3/uL Nucleated RBC % (auto) 0.0 (0.0-0.2) /100WBC Sodium 140 (135-145) mmol/L Potassium 4.1 (3.3-5.1) mmol/L Chloride 108 (96-108) mmol/L Carbon Dioxide 25 (22-29) mmol/L Anion Gap 11 L (12-20) BUN 7 L (9-16) mg/dL Creatinine 0.73 (0.5-1.4) mg/dL Estim Creat Clear Calc 115.9 Estimated GFR > 60 Random Glucose 80 (60-115) mg/dL Calcium 9.0 (8.4-10.2) mg/dL Magnesium 2.2 (1.6-2.6) mg/dL Total Bilirubin 0.5 (0.0-1.0) mg/dL AST 51 H (5-31) U/L ALT 99 H (0-31) U/L Alkaline Phosphatase 95 (39-117) U/L Total Protein 6.9 (6.5-8.0) g/dL Albumin 4.1 (3.5-5.0) g/dL Beta HCG, Quant < 2 mIU/mL Influenza Type A (PCR) NEGATIVE (Negative) Influenza Type B (PCR) NEGATIVE (Negative) RSV RNA Qual (PCR) NEGATIVE (Negative) SARS-CoV-2 RNA (RT-PCR) NEGATIVE (Negative) Independent Interpretation I performed an independent interpretation of an: CT Scan Interpretation: CT mastoid w/ ruptured right TM Radiology Impression Discussion of test interpretation with radiology: I have reviewed the radiologist's reading. Radiologist Impression: Procedure(s): CT mastoid Accession Number(s): [id number] cc: Cyril Farooq MD; Ayesha Reese~ Report Number: [id number]: Total DLP = 247.00 mGy-cm EXAMINATION: CT TEMPORAL BONES. CLINICAL INFORMATION: Right ear pain. Bleeding. Question ruptured tympanic membrane. COMPARISON: No priors. TECHNIQUE: Contiguous axial images through the temporal bones with bone algorithm. Sagittal and coronal reformatted images acquired. This CT examination was performed using dose optimization techniques as appropriate, variously including the following: *Automated exposure control *Adjustment of mA and/or kV according to patient size (this includes techniques or standardized protocols for targeted exams where dose is matched to indication/reason for exam; i.e. extremities or head) *Use of iterative reconstruction technique DLP: 247 mGy centimeter. FINDINGS: RIGHT TEMPORAL BONE: External auditory canal: Patency of the osseous and cartilage segment without soft tissue mass. Tympanic membrane: Thickened with questionable 0.3 mm defect in the pars tensa. Tympanic cavity: There is attenuation involving the mesotympanum, hypotympanum and Prussak's space. Tegmen tympani: Intact. Sinus tympanic: Secretions and/or soft tissue attenuation. Ossicles: Bony erosion without malalignment. Round and oval window: Desiccation and or soft tissue attenuation. Facial recess: Secretions and or soft tissue attenuation. Aditus at antrum, mastoid antrum and mastoid air cells: Secretions with the high density/ 86 Hounsfield unit measurements . No coalescent pattern. Fallopian canal/labyrinthine, geniculate, tympanic and mastoid segments facial nerve canal: Intact. Cochlear: Intact. Vestibule: Intact. Semicircular canals: Intact. Cochlear and vestibular aqueduct: Not enlarged. Internal auditory canal: Intact and not enlarged. Carotid canal: Intact. Jugular bulb: Intact and at the hypotympanum level. Temporomandibular joint: Intact. LEFT TEMPORAL BONE: External auditory canal: Postsurgical changes. No focal stenosis or soft tissue lesion. Tympanic membrane: Postsurgical changes with 2 mm thickness. Tympanic cavity: Postsurgical changes and mucosal thickening in the hypotympanum. Tegmen tympani: Intact. Sinus tympanic: Aerated. Ossicles: Absent. Round and oval window: Mucosal thickening and secretions in the round window. Facial recess: Intact. Aditus at antrum, mastoid antrum and mastoid air cells: Post surgical changes/resection. Fallopian canal/labyrinthine, geniculate, tympanic and mastoid segments facial nerve canal: Intact. Cochlear: Intact. Vestibule: Intact. Semicircular canals: Intact. Cochlear and vestibular aqueduct: Not enlarged. Internal auditory canal: Intact and are not enlarged. Carotid canal: Intact. Jugular bulb: Intact. Temporomandibular joint: Intact. Ancillary findings: Polypoid mucosal thickening in the maxillary sinuses and sphenoid sinus with air-fluid levels. Mucosal thickening, ethmoid air cells. CT/CT mastoid IMPRESSION: Probable ruptured right tympanic membrane. Inflammatory processes concerning for cholesteatoma, right petrous bone. High riding right internal jugular bulb. Postsurgical changes left petrous bone. Polypoid acute on chronic paranasal sinus disease. External Record Review External record reviewed: Inpatient record Prescription Management I considered prescription management with: Pain Medication and Antibiotic (augmentin, ciprodex) Social Determinants Patient?s care significantly limited by Social Determinants of Health including: Other Social Determinant of Health Critical Care Time Critical Care Time Critical Care Time: No Discharge Plan Discharge Clinical Impression: Rupture of right tympanic membrane, Sinusitis Patient Disposition: Home, Self-Care Instructions: Amoxicillin/Clavulanate Potassium (By mouth), Sinusitis (ED), Ruptured Eardrum (ED) Additional Instructions: Your blood work today is reassuring. You tested negative for COVID, flu, RSV. Your CT scan shows rupture of your right ear drum. There are also findings concerning for cholestatoma (on the right side). I also have concern for sinusitis (sinus infection). I am starting you on an oral antibiotic (Augmentin). Take this twice daily for 7 days. On Augmentin, softer bowel movements are to be expected. Call your provider if you move your bowels more than 4 times a day, your bowel movements are almost all liquid, or you get a rash.? I am also sending a combination antibiotic/ steroid ear drop. Apply 4 drops into your right ear twice daily. I recommend you take 600mg ibuprofen every 6 hours or Tylenol 650mg every 6 hours as needed for pain. If needed, you can alternate these medications so that you take one medication every 3 hours. For example, at noon take ibuprofen, then at 3pm take Tylenol, then at 6pm take ibuprofen. You need to follow up with an ENT specialist. I have provided you with a referral. Call them to establish care. Do not stick anything in your ears. Avoid swimming/ diving.. Avoid getting water in the ear while bathing/showering. Return with new or worsening symptoms. In the case of an emergency call 911. Prescriptions: New amoxicillin-pot clavulanate 875-125 mg tablet 1 tab PO BID 7 Days Qty: 14 0RF ciprofloxacin-dexamethasone 0.3-0.1 % drops,suspension 4 drp otic (ear) right BID 7 Days Qty: 7.5 0RF No Action citalopram 20 mg tablet 40 mg PO DAILY 30 Days Qty: 60 3RF omeprazole 20 mg capsule,delayed release(DR/EC) 20 mg PO DAILY 30 Days Qty: 30 2RF lisdexamfetamine [Vyvanse] 40 mg capsule 40 mg PO QAM Qty: 30 0RF Rx Instructions: Partial Fill upon patient request. albuterol sulfate [Ventolin HFA] 90 mcg/actuation HFA aerosol inhaler 2 puff inhalation Q4-6H PRN (Reason: shortness of breath or wheezing) 30 Days Qty: 8.5 6RF valacyclovir 500 mg tablet 500 mg PO DAILY 14 Days Qty: 14 1RF olanzapine 5 mg tablet 5 mg PO .COMPLEX Qty: 30 3RF Rx Instructions: 5 mg orally take 1/2 tab at bedtime and may take 1/2 tab daily if needed for panic and over-thinking; Referrals: [facility] [Provider Group] - 3 days (TM rupture, cholestatoma) Stand Alone Forms: Work/School Release Interventions: ED Discharge Assessment Last Done: 01/16/25 14:24 Discharge Date/Time: 01/16/25 14:25 Print Language: Emirati
[2025-01-16 10:00] VITALS: BP 120/84; PULSE 82; RESP 15; TEMP 36.9; O2SAT 97
[2025-01-16] MEDS: Ketorolac Tromethamine 30 MG/ML VIAL IM (10:26)
[2025-01-16 10:30] LABS: MANUAL DIFF FLAG NO
[2025-01-16 10:33] LABS: Basophils Percent Auto 0.3 % (0-2); Eosinophils Absolute Auto 0.1 X10*3/uL (0.0-0.4); Eosinophils Percent Auto 0.8 % (0-4); Hematocrit 38.6 % (37.0-47.0); Hemoglobin 13.3 g/dl (12.0-16.0); Imm Gran Abs Auto 0.03 X10*3/uL (0.00-0.03); Imm Gran Pct Auto 0.3 % (0.0-0.4); Lymphocytes Absolute Auto 2.2 X10*3/uL (1.2-4.9); Lymphocytes Percent Auto 24.9 % (20-40); Mean Corpuscular HGB Conc 34.5 g/dl (31.0-35.0); Mean Corpuscular Volume 87.1 fL (80.0-98.0); Mean Platelet Volume 8.5 fL (9.4-12.3); Monocytes Absolute Auto 0.6 X10*3/uL (0.1-1.2); Monocytes Percent Auto 6.6 % (2-11); Neutrophils Absolute Auto 5.9 x10*3/uL (2.0-8.3); Neutrophils Percent Auto 67.1 % (45-73); Platelet Count 230 X10*3/uL (160-400); Red Blood Count 4.43 X10*6/uL (4.20-5.50); Red Cell Distribution Width 12.2 % (11.0-16.0); White Blood Count 8.8 X10*3/uL (4.8-10.8)
[2025-01-16 10:55] LABS: Alanine Aminotransferase 99 U/L (0-31); Albumin Level 4.1 g/dL (3.5-5.0); Alkaline Phosphatase 95 U/L (39-117); Anion Gap 11 (12-20); Aspartate Amino Transferase 51 U/L (5-31); Bilirubin Total 0.5 mg/dL (0.0-1.0); Blood Urea Nitrogen 7 mg/dL (9-16); Carbon Dioxide 25 mmol/L (22-29); Chloride 108 mmol/L (96-108); Creatinine Clr Calc Pharmacy 115.9; Estimated Glomerular Filt Rate > 60; Glucose Random 80 mg/dL (60-115); Magnesium 2.2 mg/dL (1.6-2.6); Potassium 4.1 mmol/L (3.3-5.1); Sodium 140 mmol/L (135-145); Total Protein 6.9 g/dL (6.5-8.0)
[2025-01-16 10:57] LABS: HCG Quantitative < 2 mIU/mL
[2025-01-16 11:11] LABS: Influenza A PCR NEGATIVE (Negative); Influenza B PCR NEGATIVE (Negative); Resp Syncy Virus RNA Qual PCR NEGATIVE (Negative); SARS COV2 PCR INHOUSE NEGATIVE (Negative)
[2025-01-16] MEDS: Morphine Sulfate Immed Release 15 MG TABLET PO (13:54)
[2025-01-16 14:07] VITALS: BP 124/83; PULSE 62; RESP 14; TEMP 36.5; O2SAT 100
[2025-01-16 14:24] VITALS: BP 124/83; PULSE 62; RESP 14; TEMP 36.5; O2SAT 100
== END 2025-01-16 14:25 | disposition home or self-care (01) ==
PROVIDERS: Physician Assistant Medical; Emergency Provider Emergency Medicine; PCP Family Medicine
DX: H72.91 Unspecified perforation of tympanic membrane, right ear (principal); J32.9 Chronic sinusitis, unspecified; H92.01 Otalgia, right ear; R09.81 Nasal congestion; R11.2 Nausea with vomiting, unspecified; R10.2 Pelvic and perineal pain; Z87.891 Personal history of nicotine dependence; Z03.818 Encounter for observation for suspected exposure to other biological agents ruled out; Z79.899 Other long term (current) drug therapy
CPT/HCPCS: 0241U; 70481; 80053; 83735; 84702; 85025; 96372; 99284; J1885

== ENCOUNTER → 2025-01-16 09:44 | Outpatient (BNV) | payer OTHER, SELFPAY | PROVIDERS: Emergency Provider Emergency Medicine; PCP Family Medicine; Visit Provider Radiology Diagnostic Radiology | DX: J34.89 Other specified disorders of nose and nasal sinuses (principal) | CPT/HCPCS: 70481 ==

== ENCOUNTER 2025-02-16 14:30 | Outpatient (AMB) | payer OTHER, SELFPAY ==
--- NOTE | 2025-02-16 14:45 | A.OFFPC_ITS ---
Vital Signs 02/16/25 14:46 Height 5 ft 6 in Weight 174 lb BMI 28.1 BP 120/64 Blood Pressure Location Lt brachial Position Sitting Respiration 14 Pulse 66 Pulse Source Pulse Oximeter Temp 98.1 F Temp Source Oral Pulse Oximetry (%) 100 Oxygen Delivery Method Room Air Intake Visit Reasons: f/u depression/anxiety Allergies No Known Allergies Allergy (Verified 01/16/25 08:26) Medication List - Last Reconciled 02/16/25 by Cyril Farooq MD albuterol sulfate 90 mcg/actuation (Ventolin HFA) 2 puffs inhalation Q4-6H PRN 30 days amoxicillin-pot clavulanate 875-125 mg 1 tab PO BID 7 days ciprofloxacin-dexamethasone 0.3-0.1 % 4 drps otic (ear) right BID 7 days citalopram 40 mg (2 x 20 mg) PO DAILY 30 days lisdexamfetamine (Vyvanse) 40 mg PO QAM olanzapine 5 mg orally take 1/2 tab at bedtime and may take 1/2 tab daily if needed for panic and over-thinking; omeprazole 20 mg PO DAILY 30 days valacyclovir 500 mg PO DAILY 14 days Tobacco use date assessed: 06/25/24 Dental Screening Dental Screen Date: 06/25/24 HPI f/u depression/anxiety HPI Details 34 y/o female presents to f/u depression /anxiety. Hx of elevated liver enzymes, liver hemangioma. PHQ-9 9, VERENA-7 7 today. She continues taking citalopram. Pt notes recent ED visit for r ear pain. CT scan showed rupture of R ear drum. Findings concerning for cholestatoma ( R side) and sinusitis. Was started on Augmentin and a combination antibiotic/steroid ear drop. [facility] Surgical History History of ear surgery Family History Mother No problems noted. Father Heart disease Social History Housing: House Alcohol intake: never Patient Tobacco Use Status: Former Tobacco user Years Smoked: 15 +/- e-Cigarette/Vaping Use: Currently Using Substance Use Type: Marijuana service: No Current occupational status: employed Current occupational exposures/hazards: No Cognitive needs: No Hearing needs: No Vision needs: Yes (wears glasses) Questionnaire PHQ-9 Over the last 2 weeks, how often have you been bothered by any of the following problems? 1. Little interest or pleasure in doing things: several days 2. Feeling down, depressed, or hopeless: several days 3. Trouble falling or staying asleep, or sleeping too much: several days 4. Feeling tired or having little energy: several days 5. Poor appetite or overeating: several days 6. Feeling bad about yourself - or that you are a failure or have let yourself or your family down: several days 7. Trouble concentrating on things, such as reading the newspaper or watching television: several days 8. Moving or speaking so slowly that other people could have noticed. Or the opposite - being so fidgety or restless that you have been moving around a lot more than usual: several days 9. Thoughts that you would be better off or of hurting yourself in some way: several days Total score: 9 Depression Screening Interpretation: Positive Depression Screening Follow-up: In treatment Depression Screening Done: Yes 96878 - PHQ-9 Billing: Yes Source: Developed by Drs. Gray Mendoza, Vanessa Isbell, Rodo Glover and colleagues, with an educational thuy from [employer]. Thrive Questionnaire Date Thrive assessed: 08/06/24 I am a: Patient What is your living situation today?: I choose not to answer this question Within the past 12 months, did the food you bought not last and you didn't have the money to get more?: I choose not to answer this question Within the past 12 months, did you worry whether your food would run out before you got money to buy more?: I choose not to answer this question Do you have trouble paying for medicines?: I choose not to answer this question Do you have trouble getting transportation to medical appointments?: I choose not to answer this question Do you have trouble paying your heating and electricity bill?: I choose not to answer this question Do you have trouble taking care of your child, family member or friend?: I choose not to answer this question Do you have trouble with day-to-day activities such as bathing, preparing meals, shopping, managing finances, etc.?: I choose not to answer this question Are you currently unemployed and looking for a job?: I choose not to answer this question Are you interested in more education?: I choose not to answer this question Please select the resources that you would like help with: None Currently or been in a relationship where the following occur: I choose not to answer THRIVE Score: 0 AUDIT C Alcohol Use Questionnaire (AUDIT-C) 1. How often do you have a drink containing alcohol?: Monthly or less 2. How many drinks containing alcohol do you have on a typical day when you are drinking?: 1 or 2 3. How often do you have six or more drinks on one occasion?: Less than monthly Total Score: 2 VERENA-7 AMB Questionnaire VERENA-7 Date VERENA - 7 assessed: 02/16/25 Feeling nervous, anxious, or on edge: 1 = Several days Not being able to stop or control worryin = Several days Worrying too much about different things: 1 = Several days Trouble relaxin = Several days Being so restless that it is hard to sit still: 1 = Several days Becoming easily annoyed or irritable: 1 = Several days Feeling afraid as if something awful might happen: 1 = Several days Total VERENA-7 score (0-4 normal; 5-9 mild; 10-14 moderate; 15-21 severe): 7 Source: Developed by Drs. Gray Mendoza, Vanessa Isbell, Rodo Glover and colleagues, with an educational thuy from [employer]. VERENA-7 Assessment Billing VERENA-7 Assessment Tool: VERENA-7 Assessment 72546 Review of Systems Const Denies chills, Denies fatigue, Denies fever(s), Denies headache(s) and Denies weakness ENT Denies dizziness and Denies headache(s) Card Denies dyspnea Resp Denies cough, Denies dyspnea, Denies wheezing and Denies other (shortness of breath) Musc Denies numbness and Denies tingling Neuro Denies dizziness, Denies headache(s), Denies numbness, Denies tingling and Denies weakness Psych Reports anxiety and Reports depression Endo Denies fatigue Aller/Immun Denies wheezing Physical exam (Primary Care) Vital Signs: Last Vital Signs Temp 98.1 F 02/16/25 14:46 Pulse 66 02/16/25 14:46 Resp 14 02/16/25 14:46 BP 120/64 02/16/25 14:46 Pulse Ox 100 02/16/25 14:46 Oxygen Delivery Method Room Air 02/16/25 14:46 BMI result Body Mass Index 28.1 Tobacco/Smoking Status: Tobacco use Status Tobacco use date assessed 06/25/24 02/16/25 14:48 Patient Tobacco Use Status Former Tobacco user 02/16/25 14:48 e-Cigarette/Vaping Use Currently Using 02/16/25 14:48 PHQ-9: PHQ-9 Score PHQ-9: Total score 9 02/16/25 14:48 Depression Screening Interpretation: Positive Depression Screening Follow-up: In treatment Thrive Assessment: Date of Thrive Assessment Date Thrive assessed 08/06/24 02/16/25 14:48 Currently or been in a relationship where the following occur: I choose not to answer Const General: well developed; No acute distress Nutritional Appearance: well nourished Orientation/consciousness: patient oriented x3 HENMT Head: Yes normocephalic and Yes atraumatic Eyes General: appearance normal, both eyes and all related structures Pupils: Equal, round and reactive pupils present EOM: EOMs intact bilaterally Resp Effort & Inspection: normal respiratory effort Neuro General: patient oriented x3 and gait normal Cranial nerves: Yes Equal, round and reactive pupils present Psych Affect: normal affect Coding Level of Care Code Est Pt Level 4 (52937) Diagnoses Depression with anxiety F41.8 Elevated ALT measurement R74.01 Liver hemangioma D18.03 Otitis media, purulent, acute, with spontaneous rupture of TM H66.019 Additional Codes VERENA-7 Assessment Billing - VERENA-7 Assessment Tool: VERENA-7 Assessment 07696 ([id number]) PHQ-9 - 57514 - PHQ-9 Billing: Yes ([id number]) Assessment & Plan Assessment & Plan (1) Depression with anxiety: Code(s): F41.8 - Other specified anxiety disorders Category: Medical Plan: Fairly?well?controlled?on?current?medication?regimen?and?therapy. Continue?medications?as?prescribed (2) Elevated ALT measurement: Code(s): R74.01 - Elevation of levels of liver transaminase levels Category: Medical Plan: Elevated?liver?enzymes?in?these?have?fluctuated. She?does?have?a?history?of?liver?hemangioma Had?ordered?follow-up?ultrasound?in?September?2023 but?she?has?not?gotten?this?done Will?recheck?liver?enzymes?prior?to?next?visit. We?can?discuss?follow-up?ultrasound (3) Liver hemangioma: Code(s): D18.03 - Hemangioma of intra-abdominal structures Category: Medical Plan: As?above (4) Otitis media, purulent, acute, with spontaneous rupture of TM: Code(s): H66.019 - Acute suppurative otitis media with spontaneous rupture of ear drum, unspecified ear Category: Medical Plan: Patient?had sinus?infection? and?likely?otitis?me?with?purulent?discharge?and?rupture?of?TM?in?January Referred?to?ENT Orders: Referrals Ear/Nose/Throat Referral H66.019 - Acute suppurative otitis media with spontaneous rupture of ear drum, unspecified ear
[2025-02-16 14:46] VITALS: BP 120/64; PULSE 66; RESP 14; TEMP 36.7; O2SAT 100; BMI 28.1
--- OUTSIDE RECORDS SUMMARY | 2025-02-16 16:04 | XMS_ITS | Encounter Summary ---
Author Organization [facility] Address [address] [place] [address] Phone Care Team Providers Care Perl Programmer Name Role Phone Chrissy Figueroa MD Primary Care Provider [phone] Encounter Details Date Type Department Care Team (Late st Contact Info) Description 03/04/2010 Documentation EM Family Medicine [address] [place] [address] Family Medicine, Physician [address] [place], [place] [id number] Social History Tobacco Use Types Packs/Day Years [...] on filedocumented in this encounter Care Teams Perl Programmer Relationship Specialty Start Date End Date Chrissy Figueroa MD [address] [place], [place] [address] [address] PCP - General 05/25/17 documented as of this encounter
--- OUTSIDE RECORDS SUMMARY | 2025-02-16 16:04 | XMS_ITS | Encounter Summary ---
Author Organization [facility] Address [address] [place] [address] Phone Care Team Providers Care Boil Off Machine Operator Cloth Name Role Phone Chrissy Figueroa MD Primary Care Provider [phone] Encounter Details Date Type Department Care Team (Late st Contact Info) Description 05/31/2017 Conversion Encounter [facility] [place] [address] [place] [address] Social History Tobacco Use Types Packs/Day Years [...] on filedocumented in this encounter Care Teams Boil Off Machine Operator Cloth Relationship Specialty Start Date End Date Chrissy Figueroa MD [address] [place] [address] PCP - General 05/25/17 documented as of this encounter
--- OUTSIDE RECORDS SUMMARY | 2025-02-16 16:04 | XMS_ITS | Clinical Summary ---
Author Organization [facility] Address [address] [place] [address] Phone Care Team Providers Care Contract Technician Name Role Phone Chrissy Figueroa MD Primary Care Provider [phone] Immunizations Immunization Administration Dates Next Due DTP [...] age to complete this topic Care Teams Contract Technician Relationship Specialty Start Date End Date Chrissy Figueroa MD [address] [facility] [place] [address] PCP - General 05/25/17
--- OUTSIDE RECORDS SUMMARY | 2025-02-16 16:04 | XMS_ITS | Encounter Summary ---
Author Organization [facility] Address [address] [place] [address] Phone Care Team Providers Care Molder Setter Name Role Phone Chrissy Figueroa MD Primary Care Provider [phone] Encounter Details Date Type Department Care Team (Late st Contact Info) Description 10/25/2016 Documentation EM Family Medicine [address] [place] [address] Family Medicine, Physician [address] [place], [place] [phone] Social History Tobacco Use Types Packs/Day Years [...] on filedocumented in this encounter Care Teams Molder Setter Relationship Specialty Start Date End Date Chrissy Figueroa MD [address] [place], [place] [address] [address] PCP - General 05/25/17 documented as of this encounter
== END 2025-02-16 15:18 | disposition home or self-care (01) ==
LOC: HO.HMCFM 14:31
PROVIDERS: PCP Family Medicine; Visit Provider Family Medicine
DX: F41.8 Other specified anxiety disorders (principal); R74.01 Elevation of levels of liver transaminase levels; D18.03 Hemangioma of intra-abdominal structures; H66.019 Acute suppurative otitis media with spontaneous rupture of ear drum, unspecified ear

== ENCOUNTER → 2025-02-16 14:30 | Outpatient (BNVA) | payer OTHER, SELFPAY | PROVIDERS: PCP Family Medicine; Visit Provider Family Medicine | DX: F41.8 Other specified anxiety disorders (principal); R74.01 Elevation of levels of liver transaminase levels; D18.03 Hemangioma of intra-abdominal structures; H66.011 Acute suppurative otitis media with spontaneous rupture of ear drum, right ear; Z79.899 Other long term (current) drug therapy | CPT/HCPCS: 96127; 99212 ==

== ENCOUNTER 2025-04-27 11:34 | Outpatient (AMB) | payer OTHER, SELFPAY ==
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
--- OUTSIDE RECORDS SUMMARY | 2025-04-27 12:43 | XMS_ITS | Encounter Summary ---
Author Organization [facility] Address [address] [place] [address] Phone Care Team Providers Care Chief Merchandising Officer Name Role Phone Chrissy Figueroa MD Primary Care Provider [phone] Encounter Details Date Type Department Care Team (Late st Contact Info) Description 10/25/2016 Documentation EM Family Medicine [address] [place] [address] Family Medicine, Physician [address] [place], [place] [phone] Social History Tobacco Use Types Packs/Day Years [...] on filedocumented in this encounter Care Teams Chief Merchandising Officer Relationship Specialty Start Date End Date Chrissy Figueroa MD [address] [place], [place] [address] [address] PCP - General 05/25/17 documented as of this encounter
== END 2025-04-27 11:58 | disposition home or self-care (01) ==
LOC: HO.HOP 11:34
PROVIDERS: PCP Family Medicine; Visit Provider Clinical Nurse Specialist Psychiatric/Mental Health
DX: F32.4 Major depressive disorder, single episode, in partial remission (principal); F41.1 Generalized anxiety disorder; F41.0 Panic disorder [episodic paroxysmal anxiety]; F90.2 Attention-deficit hyperactivity disorder, combined type
CPT/HCPCS: 99214

== ENCOUNTER → 2025-04-27 11:34 | Outpatient (BNVA) | payer OTHER, SELFPAY | PROVIDERS: PCP Family Medicine; Visit Provider Clinical Nurse Specialist Psychiatric/Mental Health | DX: F32.4 Major depressive disorder, single episode, in partial remission (principal); F41.1 Generalized anxiety disorder; F41.0 Panic disorder [episodic paroxysmal anxiety]; F90.2 Attention-deficit hyperactivity disorder, combined type | CPT/HCPCS: 99212 ==

== ENCOUNTER 2025-05-25 08:36 | Outpatient (AMB) | payer OTHER, SELFPAY ==
--- NOTE | 2025-05-25 08:43 | A.OFFPC_ITS ---
Vital Signs 05/25/25 08:46 Height 5 ft 6 in Weight 179 lb 8 oz BMI 29.0 BP 106/69 Blood Pressure Location Rt brachial Position Sitting Respiration 12 Pulse 59 Pulse Source Pulse Oximeter Temp 96.6 F L Temp Source Temporal Artery Scan Pulse Oximetry (%) 98 Oxygen Delivery Method Room Air Intake Visit Reasons: f/u liver enzymes Intake Note: Follow up on liver enzymes Carpet Sewing Machine Operator Required: No Allergies No Known Allergies Allergy (Verified 05/25/25 08:44) Medication List - Last Reconciled 05/25/25 by Cyril Farooq MD albuterol sulfate 90 mcg/actuation (Ventolin HFA) 2 puffs inhalation Q4-6H PRN 30 days amoxicillin-pot clavulanate 875-125 mg 1 tab PO BID 7 days ciprofloxacin-dexamethasone 0.3-0.1 % 4 drps otic (ear) right BID 7 days citalopram 40 mg PO DAILY lisdexamfetamine (Vyvanse) 40 mg PO QAM olanzapine Take 1 tab at bedtime and may take an additional 1 tab daily if needed for panic and over-thinking; omeprazole 20 mg PO DAILY 30 days valacyclovir 500 mg PO DAILY 14 days Tobacco use date assessed: 05/25/25 Dental Screening Dental Screen Date: 05/25/25 Did you have a dental visit in the last 12 months?: Yes Did you have a dental problem in the last 6 months where you did not have access to dental care?: No Was dental information given to patient?: Patient has dentist HPI f/u liver enzymes HPI Details 34 y/o female presents to f/u liver [facility]. Hx of hemangioma. No recent labs to review. 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 She had seen ENT specialist a couple weeks ago. [facility] Surgical History History of ear surgery Family History Mother No problems noted. Father Heart disease Social History Housing: House Alcohol intake: never Patient Tobacco Use Status: Former Tobacco user Years Smoked: 15 +/- e-Cigarette/Vaping Use: Currently Using Substance Use Type: Marijuana service: No Current occupational status: employed Current occupational exposures/hazards: No Cognitive needs: No Hearing needs: No Vision needs: Yes (wears glasses) Questionnaire PHQ-9 Over the last 2 weeks, how often have you been bothered by any of the following problems? 1. Little interest or pleasure in doing things: not at all 2. Feeling down, depressed, or hopeless: not at all 3. Trouble falling or staying asleep, or sleeping too much: not at all 4. Feeling tired or having little energy: not at all 5. Poor appetite or overeating: not at all 6. Feeling bad about yourself - or that you are a failure or have let yourself or your family down: not at all 7. Trouble concentrating on things, such as reading the newspaper or watching television: not at all 8. Moving or speaking so slowly that other people could have noticed. Or the opposite - being so fidgety or restless that you have been moving around a lot more than usual: not at all 9. Thoughts that you would be better off or of hurting yourself in some way: not at all Total score: 0 Depression Screening Interpretation: Negative Depression Screening Done: Yes 82468 - PHQ-9 Billing: Yes Source: Developed by Drs. Gray Mendoza, Vanessa Isbell, Rodo Glover and colleagues, with an educational thuy from [employer]. Thrive Questionnaire Date Thrive assessed: 05/25/25 I am a: Patient What is your living situation today?: I choose not to answer this question Within the past 12 months, did the food you bought not last and you didn't have the money to get more?: I choose not to answer this question Within the past 12 months, did you worry whether your food would run out before you got money to buy more?: I choose not to answer this question Do you have trouble paying for medicines?: I choose not to answer this question Do you have trouble getting transportation to medical appointments?: I choose not to answer this question Do you have trouble paying your heating and electricity bill?: I choose not to answer this question Do you have trouble taking care of your child, family member or friend?: I choose not to answer this question Do you have trouble with day-to-day activities such as bathing, preparing meals, shopping, managing finances, etc.?: I choose not to answer this question Are you currently unemployed and looking for a job?: I choose not to answer this question Are you interested in more education?: I choose not to answer this question Please select the resources that you would like help with: None Currently or been in a relationship where the following occur: I choose not to answer THRIVE Score: 0 VERENA-7 AMB Questionnaire VERENA-7 Date VERENA - 7 assessed: 05/25/25 Feeling nervous, anxious, or on edge: 0 = Not at all Not being able to stop or control worryin = Not at all Worrying too much about different things: 0 = Not at all Trouble relaxin = Not at all Being so restless that it is hard to sit still: 0 = Not at all Becoming easily annoyed or irritable: 0 = Not at all Feeling afraid as if something awful might happen: 0 = Not at all Total VERENA-7 score (0-4 normal; 5-9 mild; 10-14 moderate; 15-21 severe): 0 Source: Developed by Drs. Gray Mendoza, Vanessa Isbell, Rodo Glover and colleagues, with an educational thuy from [employer]. VERENA-7 Assessment Billing VERENA-7 Assessment Tool: VERENA-7 Assessment 17928 Physical exam (Primary Care) Vital Signs: Last Vital Signs Temp 96.6 F L 05/25/25 08:46 Pulse 59 05/25/25 08:46 Resp 12 05/25/25 08:46 BP 106/69 05/25/25 08:46 Pulse Ox 98 05/25/25 08:46 Oxygen Delivery Method Room Air 05/25/25 08:46 BMI result Body Mass Index 29.0 Tobacco/Smoking Status: Tobacco use Status Tobacco use date assessed 05/25/25 05/25/25 08:49 Patient Tobacco Use Status Former Tobacco user 05/25/25 08:43 e-Cigarette/Vaping Use Currently Using 05/25/25 08:43 PHQ-9: PHQ-9 Score PHQ-9: Total score 0 05/25/25 08:43 Depression Screening Interpretation: Negative Thrive Assessment: Date of Thrive Assessment Date Thrive assessed 05/25/25 05/25/25 08:43 Currently or been in a relationship where the following occur: I choose not to answer Coding Level of Care Code Est Pt Level 4 (06144) Diagnoses Elevated liver enzymes R74.8 Rupture of right tympanic membrane H72.91 Liver lesion K76.9 Additional Codes VERENA-7 Assessment Billing - VERENA-7 Assessment Tool: VERENA-7 Assessment 26753 ([id number]) PHQ-9 - 54420 - PHQ-9 Billing: Yes ([id number]) Assessment & Plan Assessment & Plan (1) Elevated liver enzymes: Code(s): R74.8 - Abnormal levels of other serum enzymes Category: Medical (2) Rupture of right tympanic membrane: Code(s): H72.91 - Unspecified perforation of tympanic membrane, right ear Category: Medical (3) Liver lesion: Code(s): K76.9 - Liver disease, unspecified Category: Medical Plan Patient had elevated liver enzymes and I had recommended follow-up but she has not gotten these drawn yet. She will get her repeat liver enzymes drawn today. History of liver lesion, likely hemangioma. Had ordered ultrasound of her abdomen to follow-up liver lesion but she has not gotten this done yet. Re ordering ultrasound of liver. Will follow-up with patient when liver enzymes ultrasound complete. 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 Will request report Orders: Orders Comprehensive Met. Panel Today R74.01 - Elevation of levels of liver transaminase levels US abdomen limited Today K76.9 - Liver disease, unspecified, R74.8 - Abnormal levels of other serum enzymes Complete Blood Count Auto Diff Today R74.01 - Elevation of levels of liver transaminase levels, Z00.00 - Encounter for general adult medical examination without abnormal findings
[2025-05-25 08:46] VITALS: BP 106/69; PULSE 59; RESP 12; TEMP 35.9; O2SAT 98; BMI 29.0
--- OUTSIDE RECORDS SUMMARY | 2025-05-25 08:57 | XMS_ITS | Clinical Summary ---
Author Organization [facility] Address [address] [place] [address] Phone Care Team Providers Care Critical Care Cns Name Role Phone Chrissy Figueroa MD Primary Care Provider [phone] Immunizations Immunization Administration Dates Next Due DTP [...] 11/04/2018 11/04/2008, 06/09/2004, 03/14/1997, Additional history exists COVID-19 Vaccine ( season) 2024 Influenza Vaccines (#1) 2025 08/27/2008 HIB Vaccines Completed 02/11/1993, 02/14, 02/12/1992, Additional [...] age to complete this topic Care Teams Critical Care Cns Relationship Specialty Start Date End Date Chrissy Figueroa MD [address] [facility] [place] [address] PCP - General 05/25/17
--- OUTSIDE RECORDS SUMMARY | 2025-05-25 08:57 | XMS_ITS | Clinical Summary ---
Author Organization [facility] Address [address] [address] Phone Care Team Providers Care Standard Machine Stitcher Name Role Phone Unknown, Unknown Primary Care Provider David lable Allergies No known active allergies Medications levonorgestrel (MIRENA) 20 mcg/24 hr (5 years) intrauterine device 1 Device by Intrauterine route Once every 5 years. Active Active Problems Problem Noted Date Diagnosed Date BMI 36.0-36.9,adult 07/30/2018 IUD (intrauterine device) in place 07/30/2018 Overview (07/30/2018): Mirena 06/15/2017 Immunizations Immunization Administration Dates Next Due DTP 04/13/1993, 2,02/12/1992,12/12 Dtap, 5 Pertussis Antigens 03/14/1997 HPV,quadrivalent 11/04/2008,08/27/2008 Hepatitis B 09/19/2006,08/10/2004,06/16/2004 Hib,PRP-T 02/11/1993, 2,02/12/1992,01/12 INFLUENZA, SPLIT VIRUS, TRIV ALENT W/ PRESERVATIVE IM 08/27/2008 IPV 03/14/1997, 3,02/12/1992,12/12 MMR 03/14/1997,01/12/1993 Meningococcal MCV4P 09/19/2006 Rho (D) Immune Globulin 02/26/2017 Td (adult),2 Lf Tetanus Toxo id, PF, Adsorbed 06/09/2004 Tdap 03/15/2017,11/04/2008 Varicella 11/04/2008,06/15/2004 Family History Medical History Relation Comments No Known Problems Father No Known Problems Mother Undescended testes Son Relation Status Comments Father Alive Mother Alive Son Alive Social History Tobacco Use Types Packs/Day Years Used Date Smoking Tobacco: Former Smokeless Tobacco: Never Alcohol Use Standard Drinks/Week Comments No 0 (1 standard drink = 0.6 oz pur e alcohol) Education Answer Date Recorded Are you interested in more education? Not on trae e 02/09/2023 Are you concerned about learning? Not on file 02/09/2023 No 02/09/2023 No 02/09/2023 Digital Access Answer Date Recorded No 03/12/2023 No 03/12/2023 Reliable internet access at home? Not on file 03/12/2023 Device with a working camera? Not on file Comments No Sex and Gender Information Value Date Recorded Sex Assigned at Not on file Legal Sex Female 9:00 PM EDT Gender Identity Not on file Sexual Orientation Not on file Last Filed Vital Signs Vital Sign Reading Time Taken Comments Blood Pressure 104/62 11/07/2021 3:58 PM EST Pulse - - Temperature - - Respiratory Rate - - Oxygen Saturation - - Inhaled Oxygen Concentration - - Weight 82.6 kg (182 lb) 11/07/2021 3:58 PM EST Height 160 cm (5' 3 ) 07/30/2018 10:05 AM EDT Body Mass Index 32.24 07/30/2018 10:05 AM EDT Plan of Treatment Health Maintenance Due Date Last Done Comments DEPRESSION SCREENING 2003 SMOKING Hx and SMOKELESS TOBACCO SCREENING 2004 PAP SMEAR 10/25/2019 10/25/2016 COVID-19 VACCINE ( season) 2024 Adult Td,Tdap Booster 11/27/2028 11/27/2018 , 08/29/2017, 03/15/2017, Additional history exists HIB VACCINES Completed 02/11/1993, 02/14, 02/12/1992, Additional history exists MENINGOCOCCAL VACCINES (ACWY) Aged Out 09/19/2006 No longer eligible based on patient's age to complete this topic HEPATITIS C SCREENING Completed 05/09/2019 HIV ONE-TIME SCREENING (18-65 YEARS) Completed 05/09/2019 HEPATITIS A VACCINES Aged Out No long er eligible based on patient's age to complete this topic MENINGOCOCCAL VACCINES (B) Aged Out N o longer eligible based on patient's age to complete this topic PNEUMOCOCCAL VACCINES (0-49 years) Aged Out No longer eligible based on patient's age to complete this topic Medical Devices Not on file Procedures Procedure Name Priority Date/Time Associated Diagnosis Comments HEPATITIS C ANTIBODY, QUALITATIVE Routine 05/09/2019 1:19 PM EDT Routine screening for STI (sexually transmitted infection) from Last 3 Months or Most Recently Relevant to Health Maintenance Results * Hepatitis C antibody, qualitative (05/09/2019 1:19 PM EDT) HCV NON-REACTIV E NON-REACTI VE [facility] Blood 05/09/2019 1:19 PM EDT 05/09/2019 1:30 PM EDT Jose Araiza MD LAB BLOOD ORDERABLES Final Re sult Performing Organization Address City/State/[facility] Co de Phone Number [facility] [address] [place] [address] from Last 3 Months or Most Recently Relevant to Health Maintenance Insurance [facility] [place] [address] [place] [address] ACO [employer] [place] [address] [place] [address] ACO Care Teams Standard Machine Stitcher Relationship Specialty Start Date End Date Unknown, Unknown, PCP - General 05/22/19 Additional Source Comments The information contained in this document represents components of the legal health record. It is not the complete legal health record.[facility]
== END 2025-05-25 09:14 | disposition home or self-care (01) ==
LOC: HO.HMCFM 08:37
PROVIDERS: PCP Family Medicine; Visit Provider Family Medicine
DX: R74.8 Abnormal levels of other serum enzymes (principal); H72.91 Unspecified perforation of tympanic membrane, right ear; K76.9 Liver disease, unspecified

== ENCOUNTER 2025-05-25 08:36 | Outpatient (REF) | payer OTHER, SELFPAY ==
[2025-05-25 11:29] LABS: MANUAL DIFF FLAG NO
[2025-05-25 11:33] LABS: Hematocrit 39.3 % (37.0-47.0); Hemoglobin 13.1 g/dl (12.0-16.0); Imm Gran Abs Auto 0.01 X10*3/uL (0.00-0.03); Imm Gran Pct Auto 0.2 % (0.0-0.4); Lymphocytes Absolute Auto 1.8 X10*3/uL (1.2-4.9); Mean Corpuscular HGB Conc 33.3 g/dl (31.0-35.0); Mean Corpuscular Hemoglobin 29.5 pg (27.0-33.0); Mean Corpuscular Volume 88.5 fL (80.0-98.0); NRBC Abs Auto 0.000 X10*3/uL (0.0-0.012); NRBC Pct Auto 0.0 /100WBC (0.0-0.2); Platelet Count 249 X10*3/uL (160-400); Red Blood Count 4.44 X10*6/uL (4.20-5.50); White Blood Count 5.4 X10*3/uL (4.8-10.8)
[2025-05-25 11:40] LABS: Appearance Urine Clear; Glucose Urine UA Negative (Negative); PH 5.5 (5.0-9.0); Specific Gravity - Urine <= 1.005 (1.005-1.025); UMIC TRIGGER UA YES
[2025-05-25 12:06] LABS: Alanine Aminotransferase 76 U/L (0-31); Albumin Level 4.1 g/dL (3.5-5.0); Alkaline Phosphatase 65 U/L (39-117); Anion Gap 10 (12-20); Aspartate Amino Transferase 55 U/L (5-31); Blood Urea Nitrogen 12 mg/dL (9-16); Calcium 8.8 mg/dL (8.4-10.2); Carbon Dioxide 30 mmol/L (22-29); Chloride 106 mmol/L (96-108); Estimated Glomerular Filt Rate > 60; Potassium 4.2 mmol/L (3.3-5.1); Sodium 142 mmol/L (135-145); Total Protein 6.4 g/dL (6.5-8.0)
== END 2025-05-25 08:37 | disposition home or self-care (01) ==
LOC: HO.WFDLDS 08:36
PROVIDERS: PCP Family Medicine; Referring Provider Clinical Nurse Specialist Psychiatric/Mental Health; Visit Provider Family Medicine
DX: Z00.00 Encounter for general adult medical examination without abnormal findings (principal); R74.8 Abnormal levels of other serum enzymes; H72.91 Unspecified perforation of tympanic membrane, right ear; K76.9 Liver disease, unspecified; R74.01 Elevation of levels of liver transaminase levels; F32.4 Major depressive disorder, single episode, in partial remission; I10 Essential (primary) hypertension
CPT/HCPCS: 36415; 80053; 81001; 82043; 82570; 84443; 85025; 96127; 99212

== ENCOUNTER 2025-06-29 11:29 | Outpatient (AMB) | payer OTHER, SELFPAY ==
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
--- OUTSIDE RECORDS SUMMARY | 2025-06-29 15:47 | XMS_ITS | Encounter Summary ---
Author Organization [facility] Address [address] [place] [address] Phone Care Team Providers Care Applications System Analyst Name Role Phone Chrissy Figueroa MD Primary Care Provider [phone] Encounter Details Date Type Department Care Team (Late st Contact Info) Description 03/04/2010 Documentation EM Family Medicine [address] [place] [address] Family Medicine, Physician [address] [place], [place] [id number] Social History Tobacco Use Types Packs/Day Years [...] on filedocumented in this encounter Care Teams Applications System Analyst Relationship Specialty Start Date End Date Chrissy Figueroa MD [address] [place], [place] [address] [address] PCP - General 05/25/17 documented as of this encounter
--- OUTSIDE RECORDS SUMMARY | 2025-06-29 15:47 | XMS_ITS | Clinical Summary ---
Author Organization [facility] Address [address] [address] Phone Care Team Providers Care Pipe Fittings Molder Name Role Phone Unknown, Unknown Primary Care [...] TOBACCO SCREENING 2004 PAP SMEAR 10/25/2019 10/25/2016 INFLUENZA VACCINE (#1) 2025 9, 08/08/2018, 10/03/2017, Additional history exists COVID-19 VACCINE ( season) 2025 Adult Td,Tdap Booster 11/27/2028 11/27/2018 , 08/29/2017, [...] PM EDT) HCV NON-REACTIV E NON-REACTI VE [facility] Blood 05/09/2019 1:19 PM EDT 05/09/2019 1:30 PM EDT us Jose Araiza MD LAB BLOOD ORDERABLES Final Re sult [facility] [address] [place] [address] from Last 3 Months or Most Recently Relevant to Health Maintenance Insurance [facility] [place] [address] [place] [address] [place] [address] [place] [address] [place] [address] [place] [address] [place] [address] ACO [facility] ACO Care Teams Pipe Fittings Molder Relationship Specialty Start Date End Date Unknown, Unknown, PCP - General 05/22/19 Additional Source Comments The information contained in this document represents components of the legal health record. It is not the complete legal health record.[facility]
--- OUTSIDE RECORDS SUMMARY | 2025-06-29 15:47 | XMS_ITS | Encounter Summary ---
Author Organization [facility] Address [address] [place] [address] Phone Care Team Providers Care Boat Crew Deck Hand Name Role Phone Chrissy Figueroa MD Primary Care Provider [phone] Encounter Details Date Type Department Care Team (Late st Contact Info) Description 05/31/2017 Conversion Encounter [facility] [place] [address] [place] [address] Social History Tobacco Use Types Packs/Day Years [...] on filedocumented in this encounter Care Teams Boat Crew Deck Hand Relationship Specialty Start Date End Date Chrissy Figueroa MD [address] [place] [address] PCP - General 05/25/17 documented as of this encounter
--- OUTSIDE RECORDS SUMMARY | 2025-06-29 15:47 | XMS_ITS | Encounter Summary ---
Author Organization [facility] Address [address] [facility] [address] [place] [address] Phone Care Team Providers Care Supply Chain Design Manager Name Role Phone Pcp, Not Required Primary Care Provider Unavaila ble Unknown, Unknown Primary Care Provider David chowdary Encounter Details Date Type Department Care Team (Latest Contact Info) Description 07/03/2018 Transcribe Orders [facility] Specimen Processing [address] [place] [address] Gray German, DO [address] [place] [id number] Gross hematuria (Primary Dx); Malodorous urine Social History Tobacco Use Types Packs/Day Years Used Date Smoking Tobacco: Never Assessed Comments Unknown Sex and Gender Information Value Date Recorded Sex Assigned at Not on file Legal Sex Female 9:00 PM EDT Gender Identity Not on file Sexual Orientation Not on file documented as of this encounter Plan of Treatment Not on file documented as of this encounter Results * (ABNORMAL) Urinalysis (07/03/2018 7:07 PM EDT) COLOR Yellow Yellow [facility] CLARITY Clear [facility] GLUCOSE Negative Negative [facility] BILI Negative Negative [facility] KETONES Negative Negative [facility] SPECIFIC GRAVITY 1.010 1.005 - 1.030 [facility] BLOOD Negative Negative [facility] PH 6.0 5.0 - 8.0 [facility] Protein-UA Negative Negative [facility] NITRITE Positive(A) Negative [facility] Leukocyte esterase, ur Trace(A) Negative [facility] Urine (Urine) 07/03/2018 7:0 7 PM EDT 07/03/2018 7:13 PM EDT us Gray German DO URINE ORDERABLES Final Resul t [facility] [address] [place] [address] documented in this encounter Visit Diagnoses Diagnosis Gross hematuria- Primary Malodorous urine documented in this encounter Care Teams Supply Chain Design Manager Relationship Specialty Start Date End Date Pcp, Not Required [address] [place] [address] PCP - General 07/03/18 05/21/19 Unknown, Unknown, [address] [place] [id number] PCP - General 05/22/19 documented as of this encounter Additional Source Comments The information contained in this document represents components of the legal health record. It is not the complete legal health record.[facility]
--- OUTSIDE RECORDS SUMMARY | 2025-06-29 15:47 | XMS_ITS | Encounter Summary ---
Author Organization [facility] Address [address] [place] [address] Phone Care Team Providers Care Automotive Instructor Name Role Phone Chrissy Figueroa MD Primary Care Provider [phone] Encounter Details Date Type Department Care Team (Late st Contact Info) Description 10/25/2016 Documentation EM Family Medicine [address] [place] [address] Family Medicine, Physician [address] [place], [place] [id number] Social History Tobacco Use Types Packs/Day Years [...] on filedocumented in this encounter Care Teams Automotive Instructor Relationship Specialty Start Date End Date Chrissy Figueroa MD [address] [place], [place] [address] [address] PCP - General 05/25/17 documented as of this encounter
--- OUTSIDE RECORDS SUMMARY | 2025-06-29 15:47 | XMS_ITS | Encounter Summary ---
Author Organization [facility] Address [address] [facility] [address] [place] [address] Phone Care Team Providers Care Culturist Name Role Phone Pcp, Not Required Primary Care Provider Unavaila ble Unknown, Unknown Primary Care Provider David chowdary Encounter Details Date Type Department Care Team (Late st Contact Info) Description 11/20/2018 Transcribe Orders [address] [place] [address] Dakotah Gibson MD [address] [place] [address] [email or web address] Major depressive disorder, remission status unspecified, unspecified whether recurrent (Primary Dx); Panic disorder without agoraphobia; Behavior hyperactive Social History Tobacco Use Types Packs/Day Years Used Date Smoking Tobacco: Former Smokeless Tobacco: Never Alcohol Use Standard Drinks/Week Comments No 0 (1 standard drink = 0.6 oz pur e alcohol) Comments No Sex and Gender Information Value Date Recorded Sex Assigned at Not on file Legal Sex Female 9:00 PM EDT Gender Identity Not on file Sexual Orientation Not on file documented as of this encounter Plan of Treatment Not on file documented as of this encounter Results * Microalbumin/creatinine ratio, random urine (11/20/2018 3:37 PM EST) URINE MICROALBUMIN <1.2 0 - 2.3 mg/dL [facility] URINE CREATININE 181 mg/dL [facility] MICROALB/CRE RATIO NOT CALCULATED 0 - 20 mg/g Cre [facility] Comment:due to Microalbumin <1.2 Urine (Urine) 11/20/2018 3:3 7 PM EST 11/20/2018 3:41 PM EST us Dakotah Gibson MD URINE ORDERABLES Final Resu lt Performing Organization Address [facility] de Phone Number [address] [address] * TSH (11/20/2018 8:00 AM EST) TSH 0.78 0.27 - 4.20 uIU/mL [facility] Blood 11/20/2018 8:00 AM EST 11/20/2018 8:05 AM EST us Dakotah Gibson MD LAB BLOOD ORDERABLES Final Result Performing Organization Address [facility] de Phone Number [address] [address] * Hemoglobin A1c (11/20/2018 8:00 AM EST) HEMOGLOBIN A1C 4.7 4.3 - 5.8 % [facility] Blood 11/20/2018 8:00 AM EST 11/20/2018 8:05 AM EST us Dakotah Gibson MD LAB BLOOD ORDERABLES Final Result Performing Organization Address [facility] de Phone Number [address] [address] * (ABNORMAL) CBC and differential (11/20/2018 8:00 AM EST) WBC 7.14 3.40 - 11.20 K/uL [facility] RBC 4.47 3.80 - 4.80 M/uL [facility] HGB 13.6 12.0 - 15.0 g/dL [facility] HCT 39.3 36.0 - 46.0 % [facility] PLT 391 130 - 400 K/uL [facility] MCV 87.9 79.0 - 98.0 fL [facility] MCH 30.4 27.0 - 34.8 pg [facility] MCHC 34.6 31.5 - 36.0 g/dL [facility] RDW 12.1 10.8 - 14.6 % [facility] MPV 8.7(L) 9.4 - 12.4 fl [facility] NRBC 0.00 0.00 /100 WBCs [facility] ABSOLUTE NRBC 0.00 0.00 K/uL [facility] DIFF METHOD Auto [facility] NEUTS 68.4 45.30 - 77.70 % [facility] LYMPHS 23.5 12.30 - 39.70 % [facility] MONOS 5.7 4.10 - 12.80 % [facility] EOS 1.4 0 - 7.2 % [facility] BASOS 0.7 0 - 2.80 % [facility] Granulocytes, immature (%) 0.3 0.0 - 0.9 % [facility] ABSOLUTE NEUTS 4.88 1.40 - 7.70 K/uL [facility] ABSOLUTE LYMPHS 1.68 0.60 - 3.20 K/uL [facility] ABSOLUTE MONOS 0.41 0.11 - 0.59 K/uL [facility] ABSOLUTE EOS 0.10 0.01 - 0.50 K/uL [facility] ABSOLUTE BASOS 0.05 0.00 - 0.08 K/uL [facility] Granulocytes, immature 0.02 0.00 - 0.05 K/uL [facility] Blood 11/20/2018 8:00 AM EST 11/20/2018 8:05 AM EST us Dakotah Gibson MD LAB BLOOD ORDERABLES Final Result [facility] [address] [place] [address] * Lipid panel (11/20/2018 8:00 AM EST) HDL 41 mg/dL [facility] Comment: Interpretation <40 mg/dL: Low HDL cholesterol (major risk factor for CHD) Greater than or equal to 60 mg/dL: High HDL cholesterol ( negative risk factor for CHD) HDL - cholesterol is affected by a number of factors, e.g. smoking, excerise, hormones, sex and age. CHOLESTEROL 138 0 - 240 mg/dL [facility] TRIGLYCERIDES 77 30 - 160 mg/dL [facility] LDL 82 50 - 129 mg/dL [facility] Comment: LDL levels in terms of risk for coronary heart disease: <100 mg/dL: Optimal 100-129 mg/dL: Near or above optimal 130-159 mg/dL: Borderline high 160-189 mg/dL: High >190 mg/dL: Very High CARDIAC RISK RATIO 3.4 3.3 - 4.4 C [facility] Blood 11/20/2018 8:00 AM EST 11/20/2018 8:05 AM EST us Dakotah Gibson MD LAB BLOOD ORDERABLES Final Result Performing Organization Address City/State/[facility] Co de Phone Number [address] [address] * (ABNORMAL) Comprehensive metabolic panel (11/20/2018 8:00 AM EST) SODIUM 139 133 - 146 mmol/L [facility] POTASSIUM 4.7 3.3 - 5.1 mmol/L [facility] CHLORIDE 102 96 - 108 mmol/L [facility] CO2 27 21 - 35 mmol/L [facility] BUN 11 6 - 19 mg/dL [facility] CREATININE 0.70 0.5 - 1.5 mg/dL [facility] GLUCOSE 90 70 - 99 mg/dL [facility] ALBUMIN 3.7(L) 3.9 - 4.8 g/dL [facility] TOTAL PROTEIN 6.8 6.5 - 8.0 g/dL [facility] CALCIUM 9.0 8.4 - 10.3 mg/dL [facility] ALKALINE PHOSPHATASE 107 39 - 117 U/L [facility] TOTAL BILIRUBIN 0.4 0.0 - 1.2 mg/dL [facility] AST 26 0 - 37 U/L [facility] ALT 56(H) 0 - 40 U/L [facility] GLOBULIN 3.1 1 - 4.8 g/dL [facility] EGFR 119 >59 mL/min/1.7 3m2 [facility] Comment:If patient is black, multiply result by 1.159. Estimated glomerular filtration rate calculated using the CKD-EPI equation. ANION GAP 15 10 - 20 mmol/L [facility] Blood 11/20/2018 8:00 AM EST 11/20/2018 8:05 AM EST us Dakotah Gibson MD LAB BLOOD ORDERABLES Final Result [facility] [address] [place] [address] documented in this encounter Visit Diagnoses Diagnosis Major depressive disorder, remission status unspecified, unspecified whether recurrent- Primary Panic disorder without agoraphobia Behavior hyperactive Unspecified hyperkinetic syndrome of childhood documented in this encounter Care Teams Culturist Relationship Specialty Start Date End Date Pcp, Not Required [address] [place] [address] PCP - General 07/03/18 05/21/19 Unknown, Unknown, [address] [place] [address] PCP - General 05/22/19 documented as of this encounter Additional Source Comments The information contained in this document represents components of the legal health record. It is not the complete legal health record.[facility]
--- OUTSIDE RECORDS SUMMARY | 2025-06-29 15:47 | XMS_ITS | Clinical Summary ---
Author Organization [facility] Address [address] [place] [address] Phone Care Team Providers Care Manager Speech Name Role Phone Chrissy Figueroa MD Primary Care Provider [phone] Immunizations Immunization Administration Dates Next Due DTP [...] 03/14/1997, Additional history exists Influenza Vaccines (#1) 2025 08/27/2008 COVID-19 Vaccine ( season) 2025 HIB Vaccines Completed 02/11/1993, 02/14, 02/12/1992, Additional [...] age to complete this topic Care Teams Manager Speech Relationship Specialty Start Date End Date Chrissy Figueroa MD [address] [facility] [place] [address] PCP - General 05/25/17
== END 2025-06-29 11:55 | disposition home or self-care (01) ==
LOC: HO.HOP 11:29
PROVIDERS: PCP Family Medicine; Visit Provider Clinical Nurse Specialist Psychiatric/Mental Health
DX: F32.4 Major depressive disorder, single episode, in partial remission (principal); F41.1 Generalized anxiety disorder; F41.0 Panic disorder [episodic paroxysmal anxiety]; F90.2 Attention-deficit hyperactivity disorder, combined type
CPT/HCPCS: 99214

== ENCOUNTER → 2025-06-29 11:29 | Outpatient (BNVA) | payer OTHER, SELFPAY | PROVIDERS: PCP Family Medicine; Visit Provider Clinical Nurse Specialist Psychiatric/Mental Health | DX: F32.4 Major depressive disorder, single episode, in partial remission (principal); F41.1 Generalized anxiety disorder; F41.0 Panic disorder [episodic paroxysmal anxiety]; F90.2 Attention-deficit hyperactivity disorder, combined type | CPT/HCPCS: 99212 ==

== ENCOUNTER 2025-07-22 07:51 | Outpatient (REF) | payer OTHER, SELFPAY ==
--- NOTE | ~2025-07-22 | US_ITS ---
CLINICAL HISTORY: K76.9 - Liver disease, unspecified --- Additional Notes or Special Instructions: F u liver lesion US abdomen limited Comparison: US/SR - US ABDOMEN LIMITED - 02/13/24 07:56 EDT Findings: The visualized pancreas is normal. The liver is normal in size and echotexture. 1 x 1.1 x 0.8 cm echogenic lesion in the right lobe. There is no intrahepatic bile duct dilatation. The common duct is 2.0 mm in diameter. Gallstones in the gallbladder. Normal wall thickness. The main portal vein is antegrade. The right kidney is 7.3 cm in length. No ascites. IMPRESSION: Stable echogenic lesion of the right lobe of the liver. Cholelithiasis. This document has been electronically signed by: Parker Escobar MD on 07/22/2025 14:05:59
--- OUTSIDE RECORDS SUMMARY | 2025-07-22 07:54 | XMS_ITS | Encounter Summary ---
Author Organization [facility] Address [address] [place] [address] Phone Care Team Providers Care Medical Record Librarians Teacher Name Role Phone Chrissy Figueroa MD Primary Care Provider [phone] Encounter Details Date Type Department Care Team (Late st Contact Info) Description 05/31/2017 Conversion Encounter [facility] [place] [address] [place] [address] Social History Tobacco Use Types Packs/Day Years [...] on filedocumented in this encounter Care Teams Medical Record Librarians Teacher Relationship Specialty Start Date End Date Chrissy Figueroa MD [address] [place] [address] PCP - General 05/25/17 documented as of this encounter
--- OUTSIDE RECORDS SUMMARY | 2025-07-22 07:54 | XMS_ITS | Clinical Summary ---
Author Organization [facility] Address [address] [place] [address] Phone Care Team Providers Care Instrument Operator Name Role Phone Chrissy Figueroa MD Primary Care Provider [phone] Immunizations Immunization Administration Dates Next Due DTP [...] Influenza Vaccines (#1) 2025 08/27/2008 COVID-19 Vaccine (2024- season) 2025 HIB Vaccines Completed 02/11/1993, 02/14, [...] age to complete this topic Care Teams Instrument Operator Relationship Specialty Start Date End Date Chrissy Figueroa MD [address] [facility] [place] [address] PCP - General 05/25/17
--- OUTSIDE RECORDS SUMMARY | 2025-07-22 07:54 | XMS_ITS | Encounter Summary ---
Author Organization [facility] Address [address] [place] [address] Phone Care Team Providers Care Metal Or Wood Blocker Name Role Phone Chrissy Figueroa MD Primary Care Provider [phone] Encounter Details Date Type Department Care Team (Late st Contact Info) Description 03/04/2010 Documentation EM Family Medicine [address] [place] [address] Family Medicine, Physician [address] [place], [place] [phone] Social History Tobacco Use Types Packs/Day Years [...] on filedocumented in this encounter Care Teams Metal Or Wood Blocker Relationship Specialty Start Date End Date Chrissy Figueroa MD [address] [place], [place] [address] [address] PCP - General 05/25/17 documented as of this encounter
--- OUTSIDE RECORDS SUMMARY | 2025-07-22 07:54 | XMS_ITS | Encounter Summary ---
Author Organization [facility] Address [address] [place] [address] Phone Care Team Providers Care Design Maintenance Engineer Name Role Phone Chrissy Figueroa MD Primary Care Provider Encounter Details Date Type Department Care Team (Late st Contact Info) Description 10/25/2016 Documentation EM Family Medicine [address] [place] [address] Family Medicine, Physician [address] [place], [place] [phone] Social History Tobacco Use Types Packs/Day Years [...] on filedocumented in this encounter Care Teams Design Maintenance Engineer Relationship Specialty Start Date End Date Chrissy Figueroa MD [address] [place], [place] [address] [address] PCP - General 05/25/17 documented as of this encounter
--- OUTSIDE RECORDS SUMMARY | 2025-07-22 07:54 | XMS_ITS | Encounter Summary ---
Author Organization [facility] Address [address] [facility] [address] [place] [address] Phone Care Team Providers Care Senior Games Technician Name Role Phone Pcp, Not Required Primary Care Provider Unavaila ble Unknown, Unknown Primary Care Provider David chowdary Encounter Details Date Type Department Care Team (Latest Contact Info) Description 07/03/2018 Transcribe Orders [facility] [address] [place] [address] Gray German, DO [address] [place] [address] Gross hematuria (Primary Dx); Malodorous urine Social [...] (07/03/2018 7:07 PM EDT) COLOR Yellow Yellow [facility] CLARITY Clear [facility] GLUCOSE Negative Negative [facility] BILI Negative Negative [facility] KETONES Negative Negative [facility] SPECIFIC GRAVITY 1.010 1.005 - 1.030 [facility] BLOOD Negative Negative [facility] PH 6.0 5.0 - 8.0 [facility] Protein-UA Negative Negative [facility] NITRITE Positive(A) Negative [facility] Leukocyte esterase, ur Trace(A) Negative [facility] Urine (Urine) 07/03/2018 7:0 7 PM EDT 07/03/2018 7:13 PM EDT us Gray German DO URINE ORDERABLES Final Resul t [facility] [address] [place] [address] documented in this encounter Visit Diagnoses Diagnosis Gross hematuria- Primary Malodorous urine documented in this encounter Care Teams Senior Games Technician Relationship Specialty Start Date End Date Pcp, Not Required [address] [place] [address] PCP - General 07/03/18 05/21/19 Unknown, Unknown, [address] [place] [address] PCP - General 05/22/19 documented as of this encounter Additional Source Comments The information contained in this document represents components of the legal health record. It is not the complete legal health record.[facility]
--- OUTSIDE RECORDS SUMMARY | 2025-07-22 07:54 | XMS_ITS | Clinical Summary ---
Author Organization [facility] Address [address] [address] Phone Care Team Providers Care Aviation Technical Systems Specialist Name Role Phone Unknown, Unknown Primary Care [...] PM EDT) HCV NON-REACTIV E NON-REACTI VE [facility] Blood 05/09/2019 1:19 PM EDT 05/09/2019 1:30 PM EDT us Jose Araiza MD LAB BLOOD ORDERABLES Final Re sult [facility] [address] [place] [address] from Last 3 Months or Most Recently Relevant to Health Maintenance Insurance [facility] [place] [address] [place] [address] [place] [address] [place] [address] [place] [address] [place] [address] [employer] [place] [address] [place] [address] ACO [facility] ACO Care Teams Aviation Technical Systems Specialist Relationship Specialty Start Date End Date Unknown, Unknown, PCP - General 05/22/19 Additional Source Comments The information contained in this document represents components of the legal health record. It is not the complete legal health record.[facility]
--- OUTSIDE RECORDS SUMMARY | 2025-07-22 07:54 | XMS_ITS | Encounter Summary ---
Author Organization [facility] Address [address] [facility] [address] [place] [address] Phone Care Team Providers Care Vermin Exterminator Name Role Phone Pcp, Not Required Primary Care Provider Unavaila ble Unknown, Unknown Primary Care Provider David chowdary Encounter Details Date Type Department Care Team (Late st Contact Info) Description 11/20/2018 Transcribe Orders [address] [place] [address] Dakotah Gibson MD [address] [place] [address] [email or web address] Major depressive disorder, remission status unspecified, unspecified [...] URINE MICROALBUMIN <1.2 0 - 2.3 mg/dL [facility] URINE CREATININE 181 mg/dL [facility] MICROALB/CRE RATIO NOT CALCULATED 0 - 20 mg/g Cre [facility] Comment:due to Microalbumin <1.2 Urine (Urine) 11/20/2018 3:3 7 PM EST 11/20/2018 3:41 PM EST us Dakotah Gibson MD URINE ORDERABLES Final Resu lt Performing Organization Address [facility] de Phone Number [address] [address] * TSH (11/20/2018 8:00 AM EST) TSH 0.78 0.27 - 4.20 uIU/mL [facility] Blood 11/20/2018 8:00 AM EST 11/20/2018 8:05 AM EST us Dakotah Gibson MD LAB BLOOD ORDERABLES Final Result Performing Organization Address [facility] de Phone Number [address] [address] * Hemoglobin A1c (11/20/2018 8:00 AM EST) HEMOGLOBIN A1C 4.7 4.3 - 5.8 % [facility] Blood 11/20/2018 8:00 AM EST 11/20/2018 8:05 AM EST us Dakotah Gibson MD LAB BLOOD ORDERABLES Final Result Performing Organization Address [facility] de Phone Number [address] [address] * (ABNORMAL) CBC and differential (11/20/2018 8:00 AM EST) WBC 7.14 3.40 - 11.20 K/uL [facility] RBC 4.47 3.80 - 4.80 M/uL [facility] HGB 13.6 12.0 - 15.0 g/dL [facility] HCT 39.3 36.0 - 46.0 % [facility] PLT 391 130 - 400 K/uL [facility] MCV 87.9 79.0 - 98.0 fL [facility] MCH 30.4 27.0 - 34.8 pg [facility] MCHC 34.6 31.5 - 36.0 g/dL [facility] RDW 12.1 10.8 - 14.6 % [facility] MPV 8.7(L) 9.4 - 12.4 fl [facility] NRBC 0.00 0.00 /100 WBCs [facility] ABSOLUTE NRBC 0.00 0.00 K/uL [facility] DIFF METHOD Auto [facility] NEUTS 68.4 45.30 - 77.70 % [facility] LYMPHS 23.5 12.30 - 39.70 % [facility] MONOS 5.7 4.10 - 12.80 % [facility] EOS 1.4 0 - 7.2 % [facility] BASOS 0.7 0 - 2.80 % [facility] Granulocytes, immature (%) 0.3 0.0 - 0.9 % [facility] ABSOLUTE NEUTS 4.88 1.40 - 7.70 K/uL [facility] ABSOLUTE LYMPHS 1.68 0.60 - 3.20 K/uL [facility] ABSOLUTE MONOS 0.41 0.11 - 0.59 K/uL [facility] ABSOLUTE EOS 0.10 0.01 - 0.50 K/uL [facility] ABSOLUTE BASOS 0.05 0.00 - 0.08 K/uL [facility] Granulocytes, immature 0.02 0.00 - 0.05 K/uL [facility] Blood 11/20/2018 8:00 AM EST 11/20/2018 8:05 AM EST us Dakotah Gibson MD LAB BLOOD ORDERABLES Final Result [facility] [address] [place] [address] * Lipid panel (11/20/2018 8:00 AM EST) HDL 41 mg/dL [facility] Comment: Interpretation <40 mg/dL: Low HDL cholesterol (major risk factor for CHD) Greater than or equal to 60 mg/dL: High HDL cholesterol ( negative risk factor for CHD) HDL - cholesterol is affected by a number of factors, e.g. smoking, excerise, hormones, sex and age. CHOLESTEROL 138 0 - 240 mg/dL [facility] TRIGLYCERIDES 77 30 - 160 mg/dL [facility] LDL 82 50 - 129 mg/dL [facility] Comment: LDL levels in terms of risk for coronary heart disease: <100 mg/dL: Optimal 100-129 mg/dL: Near or above optimal 130-159 mg/dL: Borderline high 160-189 mg/dL: High >190 mg/dL: Very High CARDIAC RISK RATIO 3.4 3.3 - 4.4 C [facility] Blood 11/20/2018 8:00 AM EST 11/20/2018 8:05 AM EST us Dakotah Gibson MD LAB BLOOD ORDERABLES Final Result Performing Organization Address City/State/[facility] Co de Phone Number [address] [address] * (ABNORMAL) Comprehensive metabolic panel (11/20/2018 8:00 AM EST) SODIUM 139 133 - 146 mmol/L [facility] POTASSIUM 4.7 3.3 - 5.1 mmol/L [facility] CHLORIDE 102 96 - 108 mmol/L [facility] CO2 27 21 - 35 mmol/L [facility] BUN 11 6 - 19 mg/dL [facility] CREATININE 0.70 0.5 - 1.5 mg/dL [facility] GLUCOSE 90 70 - 99 mg/dL [facility] ALBUMIN 3.7(L) 3.9 - 4.8 g/dL [facility] TOTAL PROTEIN 6.8 6.5 - 8.0 g/dL [facility] CALCIUM 9.0 8.4 - 10.3 mg/dL [facility] ALKALINE PHOSPHATASE 107 39 - 117 U/L [facility] TOTAL BILIRUBIN 0.4 0.0 - 1.2 mg/dL [facility] AST 26 0 - 37 U/L [facility] ALT 56(H) 0 - 40 U/L [facility] GLOBULIN 3.1 1 - 4.8 g/dL [facility] EGFR 119 >59 mL/min/1.7 3m2 [facility] Comment:If patient is black, multiply result by 1.159. Estimated glomerular filtration rate calculated using the CKD-EPI equation. ANION GAP 15 10 - 20 mmol/L [facility] Blood 11/20/2018 8:00 AM EST 11/20/2018 8:05 AM EST us Dakotah Gibson MD LAB BLOOD ORDERABLES Final Result [facility] [address] [place] [address] documented in this encounter Visit Diagnoses Diagnosis Major depressive disorder, remission status unspecified, unspecified whether recurrent- Primary Panic disorder without agoraphobia Behavior hyperactive Unspecified hyperkinetic syndrome of childhood documented in this encounter Care Teams Vermin Exterminator Relationship Specialty Start Date End Date Pcp, Not Required [address] [place] [address] PCP - General 07/03/18 05/21/19 Unknown, Unknown, [address] [place] [address] PCP - General 05/22/19 documented as of this encounter Additional Source Comments The information contained in this document represents components of the legal health record. It is not the complete legal health record.[facility]
--- OUTSIDE RECORDS SUMMARY | 2025-07-22 07:54 | XMS_ITS | Data Portability ---
Author Organization [place] - [facility], Allergy Address [address] [address] Care Team Providers Care Scratch Brusher Name Role Phone BHAVANI PENA Primary Care Provider [phone] Assessment Encounter Date Assessment Date Assessment LastModified by Organization Details LastModified Time 04/27/2025 04/27/2025 34yo female with history of cholesteatoma and bilateral otologic surgery with Dr. Tinajero 15+ years ago presents for evaluation of the ears. CT temporal bone 01/2025 at [facility] showed attenuation involving the mesotympanum, hypotympanum and Prussak's space. Right tympanic membrane is thickened with questionable 0.3 mm defect in the pars tensa. Findings are concerning for cholesteatoma. Audiometric testing demonstrates normal sloping to mild-moderate sensorineural hearing loss, left worse than right. Word recognition is excellent and patient is not a candidate for hearing aids at this time. Recommend supportive measures for the sinuses including saline irrigations and Flonase. Follow up with Dr. Tinajero for middle ear evaluation. [email or web address] Not available 04/27/2025 16:51:07 Plan of Treatment Reminders Order Date Submit Date Provider Last Modified By Organization Details Last Modified Time Details Appointments Establish ed 15 2024 08:15A M JULIANNA TINAJERO MD Not available Not available Not available Lab None recorded. Referral None recorded. Procedures None recorded. Surgeries None recorded. Imaging None recorded. Medication Orders None recorded. Patient TargetsNo targets recorded. Patient InstructionsNo instructions recorded. Reason for Referral None Reported. Results Created Date Observation Date Name Description Value Unit Range Abnormal Flag Note LastModifiedBy Organization Detail LastModifiedTime 04/27/20 25 audio gram No observ ation record ed. BARCODE Not Available 2024 15:11:17 04/27/20 25 01/16/2025 CT, tempo ral bone, w/ contr ast No observ ation record ed. [email or web address] Not Available 04/14 15:59:33 Result Notes None recorded. Problems Name Problem SNOMED Code Status Onset Date Resolution Date Notes Provider Name and Address Organization Details Recorded Time Conductive hearing loss, bilateral 494548841 Active 2024 MEG CARVAAJL , AUD 100 [facility],[place] [address], [place], [address], [facility] [place] 13:26:25 Recurrent acute pansinusitis Active 2024 CHRISTY JAMES PA-C 100 [facility],[place] [address], [place], [address], [facility] [place] 16:51:23 Problem Notes None recorded. Procedures Surgical History Date Name Laterality Status Provider Name and Address Organization Details Recorded Time 04/27/2025 Comp Audio with Tymps - 14282 & 59067 completed MEG CARVAJAL, AUD 100 [facility] [address], [place], [address], [facility] 04/27/2025 13:25:52 Imaging Results None recorded. Procedure Notes None recorded. Medical Equipment None Reported. Medications Name Sig Start Date Stop Date Status Note LastModified by Organization Details LastModified Time citalopram 40 mg tablet TAKE 1 TABLET BY MOUTH EVERY DAY active Not Available Not Available No t Available olanzapine 5 mg tablet PLEASE SEE ATTACHED FOR DETAILED DIRECTION S active Not Available Not Available No t Available valacyclovi r 500 mg tablet TAKE 1 TABLET BY MOUTH EVERY DAY FOR 14 DAYS 04/27 completed Not Available Not Available Not Available ofloxacin 0.3 % ear drops INSTILL 10 DROPS IN THE RIGHT EAR EVERY DAY FOR 7 DAYS 04/24 completed Not Available Not Available Not Available citalopram 20 mg tablet TAKE 2 TABLETS BY MOUTH DAILY active Not Available Not Available No t Available lorazepam 0.5 mg tablet TAKE 1-2 TABLETS BY MOUTH DAILY NEEDED FOR ANXIETY FOR 30 DAYS 04/27 completed Not Available Not Available Not Available bupropion HCl 75 mg tablet TAKE 1 TABLET BY MOUTH TWICE A DAY FOR 30 DAYS. 04/27 completed Not Available Not Available Not Available omeprazole 20 mg capsule,del ayed release TAKE 1 CAPSULE BY MOUTH EVERY DAY 04/27 completed Not Available Not Available Not Available amoxicillin 875 mg-potassiu m clavulanate 125 mg tablet TAKE 1 TABLET BY MOUTH TWICE DAILY FOR 7 DAYS 04/24 completed Not Available Not Available Not Available Ventolin HFA 90 mcg/actuati on aerosol inhaler INHALE 2 PUFFS EVERY 4 TO 6 HOURS NEEDED FOR SHORTNESS OF BREATH OR WHEEZING FOR 30 DAYS 04/27 completed Not Available Not Available Not Available aripiprazol e 2 mg tablet TAKE 1 TABLET BY MOUTH EVERYDAY AT BEDTIME 04/27 completed Not Available Not Available Not Available Vyvanse 30 mg capsule TAKE 1 CAPSULE (30 MG) EVERY MORNING FOR 30 DAYS MASSPAT VERIFIED. PARTIAL REFILL UPON REQUEST. active Not Available Not Available No t Available lisdexamfet amine 40 mg capsule TAKE 1 CAPSULE BY MOUTH EVERY DAY IN THE MORNING active Not Available Not Available No t Available Vitals Date Recorded Body weight Body mass index (BMI) Body height Provider Name and Address Organization Details Last Updated DateTime 04/27/2025 28097.07 g 28.1 kg/m2 167.64 cm Ping Pete [place] - [facility] 04/27/2025 13:35:22 Social History None recorded. Functional Status None recorded. Mental Status None recorded. Family History Nothing Reported. Medical History Condition Response Anxiety Y Gynecological HistoryNo gynecological history recorded. Obstetrics History GPAL:G 0 P 0 0 0 0 Past Encounters Encounter ID Performer Location Encounter Start Date Encounter Closed Date Diagnosis/Indication Diagnosis SNOMED-CT Code Diagnosis ICD10 Code Diagnosis IMO Codes Diagnosis Note [id number] CHRISTY JAMES PA-C [facility] [address] [address] 04/27/2025 12:49:13 04/27/2025 14:55:16 Conductive hearing loss, bilateral 182349555 H90.0 803450 Audiologic al evaluation results: Right ear:Normal sloping to a mild conductive hearing loss with excellent word recognitio n.Left ear:Normal sloping to a moderate conductive hearing loss with excellent word recognitio n. Tympanomet ry:Right Ear:Type ALeft Ear:Type C History of ear disorder 976397160 Z86.69 58351856 Recurrent acute pansinusitis 9929541594 8805458 J01.41 6585999 Health Concerns Section Related Observation LastModified by Organization Detai ls LastModified Time None Recorded Concern Status LastModified by Organization Details LastModified Time None Recorded Advance Directives Directive None Recorded Payers Insurance Date Sequence Insurance Name Policy Number Policy Ndiaye Covered Member ID Ndiaye Member ID Guarantor Name 07/19/2025 1 [facility] [employer] [facility] CLARITY (O) [id number] Sara M Lloyd [id number] Veronica M Lloyd Notes Date Note Type Note Provider Name and Address Organization Details Recorded Time 04/27/2025 text/html ROS as noted in the HPI 34yo female presents for evaluation of the ears. She reports sinus infection 4 months ago with subsequent right sided otorrhagia. All symptoms since resolved. History of cholesteatoma s/p bilateral otologic surgery with Dr. Tinajero with prosthesis placement. Denies ear pain, drainage, or hearing changes today. CT temporal bone at [facility] showed probable ruptured right TM and inflammatory process concerning for cholesteatoma, right petrous bone. Post-surgical changes in the left petrous bone. Right attenuation and 3mm thickness. CHRISTY JAMES PA-C [address] [place] [address], [place], [address], [facility] - [facility] 04/27/2025 16:51:53 OBGyn Episode No OBEpisode recorded.
== END 2025-07-22 07:52 | disposition home or self-care (01) ==
LOC: HO.US 07:51
PROVIDERS: PCP Family Medicine; Visit Provider Family Medicine
DX: K76.9 Liver disease, unspecified (principal); R74.8 Abnormal levels of other serum enzymes
CPT/HCPCS: 76705

== ENCOUNTER → 2025-07-22 07:52 | Outpatient (BNV) | payer OTHER, SELFPAY | PROVIDERS: PCP Family Medicine; Visit Provider Nuclear Medicine | DX: K80.20 Calculus of gallbladder without cholecystitis without obstruction (principal); K76.9 Liver disease, unspecified | CPT/HCPCS: 76705 ==

== ENCOUNTER 2025-07-27 16:50 | Outpatient (AMB) | payer OTHER, SELFPAY ==
--- NOTE | 2025-07-27 15:37 | A.OFFPC_ITS ---
Intake Visit Reasons: f/u liver enzymes, ultrasound Intake Note: Sara presents for a telehealth appointment to discuss her lads and US results. Allergies No Known Allergies Allergy (Verified 07/27/25 15:38) Tobacco use date assessed: 07/27/25 Dental Screening Dental Screen Date: 07/27/25 Did you have a dental visit in the last 12 months?: No Did you have a dental problem in the last 6 months where you did not have access to dental care?: No Was dental information given to patient?: Patient declined HPI f/u liver enzymes, ultrasound HPI Details 34 y/o female presents to f/u liver enzy mes, ultrasound via telemed. Ultrasound 07/22/25 showed: Stable echogenic lesion of the right lobe of the liver. Cholelithiasis. ON LICENSE OF [facility] Surgical History History of ear surgery Family History (Updated 07/27/25 @ 15:40 by Milagro Mahmood CMA) Mother No problems noted. Father Heart disease Maternal Grandmother Depression FH: mental illness Social History (Updated 07/27/25 @ 15:40 by Milagro Mahmood CMA) Housing: House Alcohol intake: never Patient Tobacco Use Status: Former Tobacco user Years Smoked: 15 +/- e-Cigarette/Vaping Use: Currently Using Second Hand Smoke Exposure: No Use of substances other than those prescribed or required for medical reasons: Yes Substance Use Type: Marijuana service: No Current occupational status: employed Current occupational exposures/hazards: No Cognitive needs: No Hearing needs: No Vision needs: Yes (wears glasses) Questionnaire Thrive Questionnaire Date Thrive assessed: 05/25/25 VERENA-7 AMB Questionnaire VERENA-7 Date VERENA - 7 assessed: 05/25/25 Source: Developed by Drs. Gray Mendoza, Vanessa Isbell, Rodo Glover and colleagues, with an educational thuy from [employer]. Review of Systems Const Denies chills, Denies fatigue, Denies fever(s), Denies headache(s) and Denies weakness ENT Denies dizziness and Denies headache(s) Card Denies dyspnea Resp Denies cough, Denies dyspnea, Denies wheezing and Denies other (shortness of breath) Musc Denies numbness and Denies tingling Neuro Denies dizziness, Denies headache(s), Denies numbness, Denies tingling and Denies weakness Psych Denies anxiety and Denies depression Endo Denies fatigue Aller/Immun Denies wheezing Physical exam (Primary Care) Tobacco/Smoking Status: Tobacco use Status Tobacco use date assessed 07/27/25 07/27/25 15:41 Patient Tobacco Use Status Former Tobacco user 07/27/25 15:41 e-Cigarette/Vaping Use Currently Using 07/27/25 15:41 Thrive Assessment: Date of Thrive Assessment Date Thrive assessed 05/25/25 07/27/25 15:41 Telehealth Telehealth Telehealth Platform: Telephone Location of provider rendering services: practice address Location of patient: address on file Patient Identification confirmed using: Name, : Yes Patient verbally consented to treatment: Yes Patient verbally consented to billing insurance company: Yes Patient informed of any privacy concerns related to visit: Yes Minutes spent on Phone/Video with Pt.: 6 Coding Level of Care Code Tele Est Pt Level 2 (57435) Diagnoses Elevated liver enzymes R74.8 Liver lesion K76.9 Assessment & Plan Assessment & Plan (1) Elevated liver enzymes: Code(s): R74.8 - Abnormal levels of other serum enzymes Category: Medical (2) Liver lesion: Code(s): K76.9 - Liver disease, unspecified Category: Medical Plan Ultrasound shows stable 1 x 1.1 x 0.8 cm echogenic lesion in the right lobe. Echotexture of the liver was normal Encouraged good hydration We can follow her liver enzymes periodically [place] [facility] [place] for anxiety as well as ADHD Stable Follow-up with Brea Covington as recommended Patient had mentioned ENT is following her for hearing changes as well as abnormality at TM Will request reports Orders: Orders Basic Metabolic Panel Fasting 07/27/25 Z00.00 - Encounter for general adult medical examination without abnormal findings Microalbumin, Random (w Creat) 07/27/25 I10 - Essential (primary) hypertension, Z00.00 - Encounter for general adult medical examination without abnormal findings TSH reflex Free T4 07/27/25 Z00.00 - Encounter for general adult medical examination without abnormal findings Complete Blood Count Auto Diff 07/27/25 Z00.00 - Encounter for general adult medical examination without abnormal findings Lipid Panel 07/27/25 Z00.00 - Encounter for general adult medical examination without abnormal findings UA CC w/rflx Micro + Cult 07/27/25 Z00.00 - Encounter for general adult medical examination without abnormal findings Referrals M[employer]S INSPECTOR Referral Z12.4 - Encounter for screening for malignant neoplasm of cervix
--- OUTSIDE RECORDS SUMMARY | 2025-07-27 16:53 | XMS_ITS | Clinical Summary ---
Author Organization [facility] Address [address] [address] Phone Care Team Providers Care Bindery Machine Operator Name Role Phone Unknown, Unknown Primary Care [...] PM EDT) HCV NON-REACTIV E NON-REACTI VE [facility] Blood 05/09/2019 1:19 PM EDT 05/09/2019 1:30 PM EDT us Jose Araiza MD LAB BLOOD ORDERABLES Final Re sult [facility] [address] [place] [address] from Last 3 Months or Most Recently Relevant to Health Maintenance Insurance [facility] [place] [address] [place] [address] [place] [address] [place] [address] [employer] [address] [place] [address] ACO [facility]CO Care Teams Bindery Machine Operator Relationship Specialty Start Date End Date Unknown, Unknown, PCP - General 05/22/19 Additional Source Comments The information contained in this document represents components of the legal health record. It is not the complete legal health record.[facility]
--- OUTSIDE RECORDS SUMMARY | 2025-07-27 16:53 | XMS_ITS | Encounter Summary ---
Author Organization [facility] Address [address] [facility] [address] [place] [address] Phone Care Team Providers Care Hearing Aid Fitter Name Role Phone Pcp, Not Required Primary Care Provider Unavaila ble Unknown, Unknown Primary Care Provider David chowdary Encounter Details Date Type Department Care Team (Late st Contact Info) Description 11/20/2018 Transcribe Orders [address] [place] [address] Dakotah Gibson MD [address] [place] [address] [email or web address] Major depressive disorder, remission status unspecified, unspecified [...] URINE MICROALBUMIN <1.2 0 - 2.3 mg/dL [facility] URINE CREATININE 181 mg/dL [facility] MICROALB/CRE RATIO NOT CALCULATED 0 - 20 mg/g Cre [facility] Comment:due to Microalbumin <1.2 Urine (Urine) 11/20/2018 3:3 7 PM EST 11/20/2018 3:41 PM EST us Dakotah Gibson MD URINE ORDERABLES Final Resu lt Performing Organization Address [facility] de Phone Number [address] [address] * TSH (11/20/2018 8:00 AM EST) TSH 0.78 0.27 - 4.20 uIU/mL [facility] Blood 11/20/2018 8:00 AM EST 11/20/2018 8:05 AM EST us Dakotah Gibson MD LAB BLOOD ORDERABLES Final Result Performing Organization Address [facility] de Phone Number [address] [address] * Hemoglobin A1c (11/20/2018 8:00 AM EST) HEMOGLOBIN A1C 4.7 4.3 - 5.8 % [facility] Blood 11/20/2018 8:00 AM EST 11/20/2018 8:05 AM EST us Dakotah Gibson MD LAB BLOOD ORDERABLES Final Result Performing Organization Address [facility] de Phone Number [address] [address] * (ABNORMAL) CBC and differential (11/20/2018 8:00 AM EST) WBC 7.14 3.40 - 11.20 K/uL [facility] RBC 4.47 3.80 - 4.80 M/uL [facility] HGB 13.6 12.0 - 15.0 g/dL [facility] HCT 39.3 36.0 - 46.0 % [facility] PLT 391 130 - 400 K/uL [facility] MCV 87.9 79.0 - 98.0 fL [facility] MCH 30.4 27.0 - 34.8 pg [facility] MCHC 34.6 31.5 - 36.0 g/dL [facility] RDW 12.1 10.8 - 14.6 % [facility] MPV 8.7(L) 9.4 - 12.4 fl [facility] NRBC 0.00 0.00 /100 WBCs [facility] ABSOLUTE NRBC 0.00 0.00 K/uL [facility] DIFF METHOD Auto [facility] NEUTS 68.4 45.30 - 77.70 % [facility] LYMPHS 23.5 12.30 - 39.70 % [facility] MONOS 5.7 4.10 - 12.80 % [facility] EOS 1.4 0 - 7.2 % [facility] BASOS 0.7 0 - 2.80 % [facility] Granulocytes, immature (%) 0.3 0.0 - 0.9 % [facility] ABSOLUTE NEUTS 4.88 1.40 - 7.70 K/uL [facility] ABSOLUTE LYMPHS 1.68 0.60 - 3.20 K/uL [facility] ABSOLUTE MONOS 0.41 0.11 - 0.59 K/uL [facility] ABSOLUTE EOS 0.10 0.01 - 0.50 K/uL [facility] ABSOLUTE BASOS 0.05 0.00 - 0.08 K/uL [facility] Granulocytes, immature 0.02 0.00 - 0.05 K/uL [facility] Blood 11/20/2018 8:00 AM EST 11/20/2018 8:05 AM EST us Dakotah Gibson MD LAB BLOOD ORDERABLES Final Result [facility] [address] [place] [address] * Lipid panel (11/20/2018 8:00 AM EST) HDL 41 mg/dL [facility] Comment: Interpretation <40 mg/dL: Low HDL cholesterol (major risk factor for CHD) Greater than or equal to 60 mg/dL: High HDL cholesterol ( negative risk factor for CHD) HDL - cholesterol is affected by a number of factors, e.g. smoking, excerise, hormones, sex and age. CHOLESTEROL 138 0 - 240 mg/dL [facility] TRIGLYCERIDES 77 30 - 160 mg/dL [facility] LDL 82 50 - 129 mg/dL [facility] Comment: LDL levels in terms of risk for coronary heart disease: <100 mg/dL: Optimal 100-129 mg/dL: Near or above optimal 130-159 mg/dL: Borderline high 160-189 mg/dL: High >190 mg/dL: Very High CARDIAC RISK RATIO 3.4 3.3 - 4.4 C [facility] Blood 11/20/2018 8:00 AM EST 11/20/2018 8:05 AM EST us Dakotah Gibson MD LAB BLOOD ORDERABLES Final Result Performing Organization Address City/State/[facility] Co de Phone Number [address] [address] * (ABNORMAL) Comprehensive metabolic panel (11/20/2018 8:00 AM EST) SODIUM 139 133 - 146 mmol/L [facility] POTASSIUM 4.7 3.3 - 5.1 mmol/L [facility] CHLORIDE 102 96 - 108 mmol/L [facility] CO2 27 21 - 35 mmol/L [facility] BUN 11 6 - 19 mg/dL [facility] CREATININE 0.70 0.5 - 1.5 mg/dL [facility] GLUCOSE 90 70 - 99 mg/dL [facility] ALBUMIN 3.7(L) 3.9 - 4.8 g/dL [facility] TOTAL PROTEIN 6.8 6.5 - 8.0 g/dL [facility] CALCIUM 9.0 8.4 - 10.3 mg/dL [facility] ALKALINE PHOSPHATASE 107 39 - 117 U/L [facility] TOTAL BILIRUBIN 0.4 0.0 - 1.2 mg/dL [facility] AST 26 0 - 37 U/L [facility] ALT 56(H) 0 - 40 U/L [facility] GLOBULIN 3.1 1 - 4.8 g/dL [facility] EGFR 119 >59 mL/min/1.7 3m2 [facility] Comment:If patient is black, multiply result by 1.159. Estimated glomerular filtration rate calculated using the CKD-EPI equation. ANION GAP 15 10 - 20 mmol/L [facility] Blood 11/20/2018 8:00 AM EST 11/20/2018 8:05 AM EST us Dakotah Gibson MD LAB BLOOD ORDERABLES Final Result [facility] [address] [place] [address] documented in this encounter Visit Diagnoses Diagnosis Major depressive disorder, remission status unspecified, unspecified whether recurrent- Primary Panic disorder without agoraphobia Behavior hyperactive Unspecified hyperkinetic syndrome of childhood documented in this encounter Care Teams Hearing Aid Fitter Relationship Specialty Start Date End Date Pcp, Not Required [address] [place] [address] PCP - General 07/03/18 05/21/19 Unknown, Unknown, [address] [place] [address] PCP - General 05/22/19 documented as of this encounter Additional Source Comments The information contained in this document represents components of the legal health record. It is not the complete legal health record.[facility]
--- OUTSIDE RECORDS SUMMARY | 2025-07-27 16:53 | XMS_ITS | Encounter Summary ---
Author Organization [facility] Address [address] [place] [address] Phone Care Team Providers Care Product Applications Engineer Name Role Phone Chrissy Figueroa MD Primary Care Provider [phone] Encounter Details Date Type Department Care Team (Late st Contact Info) Description 05/31/2017 Conversion Encounter [facility] [address] [place] [address] Social History Tobacco Use Types Packs/Day Years [...] on filedocumented in this encounter Care Teams Product Applications Engineer Relationship Specialty Start Date End Date Chrissy Figueroa MD [address] [place] [address] PCP - General 05/25/17 documented as of this encounter
--- OUTSIDE RECORDS SUMMARY | 2025-07-27 16:53 | XMS_ITS | Encounter Summary ---
Author Organization [facility] Address [address] [place] [address] Phone Care Team Providers Care Cold Rolling Machine Setter Name Role Phone Chrissy Figueroa MD Primary Care Provider [phone] Encounter Details Date Type Department Care Team (Late st Contact Info) Description 03/04/2010 Documentation [facility] [address] [place] [address] Family Medicine, Physician [address] [place], [place] [phone] Social History Tobacco Use Types Packs/Day Years [...] on filedocumented in this encounter Care Teams Cold Rolling Machine Setter Relationship Specialty Start Date End Date Chrissy Figueroa MD [address] [place], [place] [address] [address] PCP - General 05/25/17 documented as of this encounter
--- OUTSIDE RECORDS SUMMARY | 2025-07-27 16:53 | XMS_ITS | Encounter Summary ---
Author Organization [facility] Address [address] [place] [address] Phone Care Team Providers Care Shoemaking Finisher Name Role Phone Chrissy Figueroa MD Primary Care Provider [phone] Encounter Details Date Type Department Care Team (Late st Contact Info) Description 10/25/2016 Documentation [facility] [address] [place] [address] Family Medicine, Physician [address] [place], [place] [phone] Social History Tobacco Use Types Packs/Day Years [...] on filedocumented in this encounter Care Teams Shoemaking Finisher Relationship Specialty Start Date End Date Chrissy Figueroa MD [address] [place], [place] [address] [address] PCP - General 05/25/17 documented as of this encounter
--- OUTSIDE RECORDS SUMMARY | 2025-07-27 16:53 | XMS_ITS | Encounter Summary ---
Author Organization [facility] Address [address] [facility] [address] [place] [address] Phone Care Team Providers Care Tariff Publishing Agent Name Role Phone Pcp, Not Required Primary Care Provider Unavaila ble Unknown, Unknown Primary Care Provider David chowdary Encounter Details Date Type Department Care Team (Latest Contact Info) Description 07/03/2018 Transcribe Orders [facility] Specimen Processing [address] [place] [address] Gray German, DO [address] [place] [address] Gross hematuria (Primary Dx); Malodorous urine Social [...] (07/03/2018 7:07 PM EDT) COLOR Yellow Yellow [facility] CLARITY Clear [facility] GLUCOSE Negative Negative [facility] BILI Negative Negative [facility] KETONES Negative Negative [facility] SPECIFIC GRAVITY 1.010 1.005 - 1.030 [facility] BLOOD Negative Negative [facility] PH 6.0 5.0 - 8.0 [facility] Protein-UA Negative Negative [facility] NITRITE Positive(A) Negative [facility] Leukocyte esterase, ur Trace(A) Negative [facility] Urine (Urine) 07/03/2018 7:0 7 PM EDT 07/03/2018 7:13 PM EDT us Gray German DO URINE ORDERABLES Final Resul t [facility] [address] [place] [address] documented in this encounter Visit Diagnoses Diagnosis Gross hematuria- Primary Malodorous urine documented in this encounter Care Teams Tariff Publishing Agent Relationship Specialty Start Date End Date Pcp, Not Required [address] [place] [address] PCP - General 07/03/18 05/21/19 Unknown, Unknown, [address] [place] [address] PCP - General 05/22/19 documented as of this encounter Additional Source Comments The information contained in this document represents components of the legal health record. It is not the complete legal health record.[facility]
--- OUTSIDE RECORDS SUMMARY | 2025-07-27 16:53 | XMS_ITS | Clinical Summary ---
Author Organization [facility] Address [address] [place] [address] Phone Care Team Providers Care Conveyor Line Bakery Worker Name Role Phone Chrissy Figueroa MD Primary Care Provider [phone] Immunizations Immunization Administration Dates Next Due DTP [...] age to complete this topic Care Teams Conveyor Line Bakery Worker Relationship Specialty Start Date End Date Chrissy Figueroa MD [address] [facility] [place] [address] PCP - General 05/25/17
== END 2025-07-27 17:05 | disposition home or self-care (01) ==
LOC: HO.HMCFM 16:50
PROVIDERS: PCP Family Medicine; Visit Provider Family Medicine
DX: R74.8 Abnormal levels of other serum enzymes (principal); K76.9 Liver disease, unspecified

== ENCOUNTER 2025-08-24 11:25 | Outpatient (AMB) | payer OTHER, SELFPAY ==
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
--- OUTSIDE RECORDS SUMMARY | 2025-08-24 13:46 | XMS_ITS | Clinical Summary ---
Author Organization [facility] Address [address] [address] Phone Care Team Providers Care Fiberglass Technician Name Role Phone Unknown, Unknown Primary Care [...] complete this topic HEPATITIS C SCREENING Completed 05/09/2019, 019 HIV ONE-TIME SCREENING (18-65 YEARS) Completed 05/09/2019 [...] PM EDT) HCV NON-REACTIV E NON-REACTI VE [facility] Blood 05/09/2019 1:19 PM EDT 05/09/2019 1:30 PM EDT Jose Araiza MD LAB BLOOD BKR ORDERABLES Fanny fuentes Result Performing Organization Address City/State/[facility] Co de Phone Number [facility] [address] [place] [address] from Last 3 Months or Most Recently Relevant to Health Maintenance Insurance [facility] [place] [address] [place] [address] [place] [address] [place] [address] [place] [place] [address] [place] [address] [place] [address] A[place] [employer] [facility] ACO Care Teams Fiberglass Technician Relationship Specialty Start Date End Date Unknown, Unknown, PCP - General 05/22/19 Additional Source Comments The information contained in this document represents components of the legal health record. It is not the complete legal health record.[facility]
--- OUTSIDE RECORDS SUMMARY | 2025-08-24 13:46 | XMS_ITS | Clinical Summary ---
Author Organization [facility] Address [address] [place] [address] Phone Care Team Providers Care Plant Anatomy Teacher Name Role Phone Chrissy Figueroa MD Primary Care Provider [phone] Immunizations Immunization Administration Dates Next Due DTP [...] age to complete this topic Care Teams Plant Anatomy Teacher Relationship Specialty Start Date End Date Chrissy Figueroa MD [address] [facility] [place] [address] PCP - General 05/25/17
--- OUTSIDE RECORDS SUMMARY | 2025-08-24 13:46 | XMS_ITS | Data Portability ---
Author Organization [place] [facility] Address [address] [address] Care Team Providers Care Speech Lang Path Name Role Phone BHAVANI PENA Primary Care Provider Assessment Encounter Date Assessment Date Assessment LastModified by Organization Details LastModified Time 04/27/2025 04/27/2025 34yo female with history of cholesteatoma and bilateral otologic surgery with Dr. Drummond 15+ years ago presents for evaluation of the ears. CT temporal bone 01/2025 at [facility] showed attenuation involving the mesotympanum, hypotympanum [...] irrigations and Flonase. Follow up with Dr. Drummond for middle ear evaluation. [email or web address] Not available 04/27/2025 16:51:07 Plan of Treatment Reminders Order Date Submit Date Provider Last Modified By Organization Details Last Modified Time Details Appointments None record ed. Lab None record ed. Referral None record ed. Procedures None record ed. Surgeries None record ed. Imaging None record ed. Medication Orders None record ed. Patient TargetsNo targets recorded. Patient InstructionsNo instructions recorded. Reason for Referral None Reported. Results Created Date Observation Date Name Description Value Unit Range Abnormal Flag Note LastModifiedBy Organization Detail LastModifiedTime 04/27/20 audio gram No observ ation record ed. BARCODE Not Available 2024 15:11:17 04/27/20 25 01/16/2025 CT, tempo ral bone, w/ contr ast No observ ation record ed. [email or web address] Not Available 04/14 15:59:33 Result Notes None recorded. Problems Name Problem SNOMED Code Status Onset Date Resolution Date Notes Provider Name and Address Organization Details Recorded Time Conductive hearing loss, bilateral 092919736 Active 2024 MEG CARVAJAL , AUD [address] [facility],[place] [address], [place], [address], [facility] [place] 13:26:25 Recurrent acute pansinusitis Active 2024 CHRISTY JAMES PA-C 100 [facility],[place] [address], [place], [address], [facility] [place] 16:51:23 Problem Notes None recorded. Procedures Surgical History Date Name Laterality Status Provider Name and Address Organization Details Recorded Time 04/27/2025 Comp Audio with Tymps - 20133 & 25602 completed MEG CARVAJAL, AUD 100 [facility], [place], [address], [facility] [place] 04/27/2025 13:25:52 Imaging Results None recorded. Procedure [...] Address Organization Details Last Updated DateTime 04/27/2025 60615.07 g 28.1 kg/m2 167.64 cm Ping Pete [place] [facility] 04/27/2025 13:35:22 Social History None recorded. Functional Status None recorded. Mental Status None recorded. Family History Nothing Reported. Medical History Condition Response Anxiety Y Gynecological HistoryNo gynecological history recorded. Obstetrics History GPAL:G 0 P 0 0 0 0 Past Encounters Encounter ID Performer Location Encounter Start Date Encounter Closed Date Diagnosis/Indication Diagnosis SNOMED-CT Code Diagnosis ICD10 Code Diagnosis IMO Codes Diagnosis Note [id number] CHRISTY JAMES PA-C [facility] [address] [address] 04/27/2025 12:49:13 04/27/2025 14:55:16 Conductive hearing loss, bilateral 368204349 H90.0 [id number] Audiologic al evaluation results: Right ear:Normal sloping to a mild conductive hearing loss with excellent word recognitio n.Left ear:Normal sloping to a moderate conductive hearing loss with excellent word recognitio n. Tympanomet ry:Right Ear:Type ALeft Ear:Type C History of ear disorder 058585494 Z86.69 [id number] Recurrent acute pansinusitis 0590082803 9881224 J01.41 8614351 Health Concerns Section Related Observation LastModified by Organization Detai ls LastModified Time None Recorded Concern Status LastModified by Organization Details LastModified Time None Recorded Advance Directives Directive None Recorded Payers Insurance Date Sequence Insurance Name Policy Number Policy Ndiaye Covered Member ID Ndiaye Member ID Guarantor Name 07/19/2025 [address] [facility] (O) [id number] Sarahector Desai [id number] Veronica Desai Notes Date Note Type Note Provider Name and Address Organization Details Recorded Time 04/27/2025 text/html ROS as noted in the HPI 34yo female presents for evaluation of the ears. She reports sinus infection 4 months ago with subsequent right sided otorrhagia. All symptoms since resolved. History of cholesteatoma s/p bilateral otologic surgery with Dr. Drummond with prosthesis placement. Denies ear pain, drainage, or hearing changes today. CT temporal bone at [facility] showed probable ruptured right TM and inflammatory process concerning for cholesteatoma, right petrous bone. Post-surgical changes in the left petrous bone. Right attenuation and 3mm thickness. CHRISTY JAMES PA-C [address] [place] [address],[place] [address], [place], [address], [facility] - [facility] 04/27/2025 16:51:53 OBGyn Episode No OBEpisode recorded.
--- OUTSIDE RECORDS SUMMARY | 2025-08-24 13:47 | XMS_ITS | Encounter Summary ---
Author Organization [facility] Address [address] [place] [address] Phone Care Team Providers Care Motor Rebuilder Name Role Phone Chrissy Figueroa MD Primary Care Provider [phone] Encounter Details Date Type Department Care Team (Late st Contact Info) Description 10/25/2016 Documentation EM Family Medicine [address] [place] [address] Family Medicine, Physician [address] [place], [place] [phone] Social History Tobacco Use Types Packs/Day Years [...] on filedocumented in this encounter Care Teams Motor Rebuilder Relationship Specialty Start Date End Date Chrissy Figueroa MD [address] [place], [place] [address] [address] PCP - General 05/25/17 documented as of this encounter
--- OUTSIDE RECORDS SUMMARY | 2025-08-24 13:47 | XMS_ITS | Encounter Summary ---
Author Organization [facility] Address [address] [place] [address] Phone Care Team Providers Care Sales And Operations Trainee Name Role Phone Chrissy Figueroa MD Primary Care Provider [phone] Encounter Details Date Type Department Care Team (Late st Contact Info) Description 05/31/2017 Conversion Encounter [facility] [address] [place] [address] Social History Tobacco Use Types Packs/Day Years [...] on filedocumented in this encounter Care Teams Sales And Operations Trainee Relationship Specialty Start Date End Date Chrissy Figueroa MD 150 [place] [address] PCP - General 05/25/17 documented as of this encounter
--- OUTSIDE RECORDS SUMMARY | 2025-08-24 13:47 | XMS_ITS | Encounter Summary ---
Author Organization [facility] Address [address] [place] [address] Phone Care Team Providers Care Aircraft Stress Analyst Name Role Phone Chrissy Figueroa MD Primary Care Provider [phone] Encounter Details Date Type Department Care Team (Late st Contact Info) Description 03/04/2010 Documentation EM Family Medicine [address] [place] [address] Family Medicine, Physician [address] [place], [place] [phone] Social History Tobacco Use Types Packs/Day Years [...] on filedocumented in this encounter Care Teams Aircraft Stress Analyst Relationship Specialty Start Date End Date Chrissy Figueroa MD [address] [place], [place] [address] [address] PCP - General 05/25/17 documented as of this encounter
--- OUTSIDE RECORDS SUMMARY | 2025-08-24 13:47 | XMS_ITS | Encounter Summary ---
Author Organization [facility] Address [address] [facility] [address] [place] [address] Phone Care Team Providers Care Coppersmith Apprentice Name Role Phone Pcp, Not Required Primary Care Provider Unavaila ble Unknown, Unknown Primary Care Provider David chowdary Encounter Details Date Type Department Care Team (Latest Contact Info) Description 07/03/2018 Transcribe Orders [facility] Specimen Processing [address] [place] [address] Gray German, DO [address] [place] [address] Gross hematuria (Primary Dx); Malodorous urine Social [...] 7:13 PM EDT us Gray German DO LAB URINE ORDERABLES Final R esult Performing Organization Address City/State/[facility] Co de Phone Number [facility] [address] [place] [address] documented in this encounter Visit Diagnoses Diagnosis Gross hematuria- Primary Malodorous urine documented in this encounter Care Teams Coppersmith Apprentice Relationship Specialty Start Date End Date Pcp, Not Required [address] [place] [address] PCP - General 07/03/18 05/21/19 Unknown, Unknown, [address] [place] [address] PCP - General 05/22/19 documented as of this encounter Additional Source Comments The information contained in this document represents components of the legal health record. It is not the complete legal health record.[facility]
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
== END 2025-08-24 12:57 | disposition home or self-care (01) ==
LOC: HO.HOP 11:25
PROVIDERS: PCP Family Medicine; Visit Provider Clinical Nurse Specialist Psychiatric/Mental Health
DX: F32.4 Major depressive disorder, single episode, in partial remission (principal); F41.1 Generalized anxiety disorder; F41.0 Panic disorder [episodic paroxysmal anxiety]; F90.2 Attention-deficit hyperactivity disorder, combined type
CPT/HCPCS: 99214

== ENCOUNTER → 2025-08-24 11:25 | Outpatient (BNVA) | payer OTHER, SELFPAY | PROVIDERS: PCP Family Medicine; Visit Provider Clinical Nurse Specialist Psychiatric/Mental Health | DX: F32.4 Major depressive disorder, single episode, in partial remission (principal); F41.1 Generalized anxiety disorder; F90.2 Attention-deficit hyperactivity disorder, combined type; Z79.899 Other long term (current) drug therapy | CPT/HCPCS: 99212 ==